=== PATIENT | male | born 1955 | race Caucasian/White ===

== ENCOUNTER → 2019-08-08 10:10 | Outpatient (BNVA) | payer MEDICARE, SELFPAY | PROVIDERS: PCP Family Medicine; Visit Provider Urology | DX: C67.8 Malignant neoplasm of overlapping sites of bladder (principal); R82.89 Other abnormal findings on cytological and histological examination of urine | CPT/HCPCS: 81001 ==

== ENCOUNTER → 2020-02-13 14:20 | Outpatient (BNVA) | payer MEDICARE, SELFPAY | PROVIDERS: PCP Family Medicine; Visit Provider Urology | DX: R82.89 Other abnormal findings on cytological and histological examination of urine (principal) | CPT/HCPCS: 81001; 88112 ==

== ENCOUNTER → 2020-08-21 14:16 | Outpatient (BNVA) | payer MEDICARE, SELFPAY | PROVIDERS: PCP Family Medicine; Visit Provider Urology | DX: C67.8 Malignant neoplasm of overlapping sites of bladder (principal) | CPT/HCPCS: 81003 ==

== ENCOUNTER → 2021-02-25 14:28 | Outpatient (BNVA) | payer MEDICARE, SELFPAY | PROVIDERS: PCP Family Medicine; Visit Provider Urology | DX: C67.8 Malignant neoplasm of overlapping sites of bladder (principal) | CPT/HCPCS: 81003 ==

== ENCOUNTER → 2021-09-08 13:17 | Outpatient (BNVA) | payer MEDICARE, SELFPAY | PROVIDERS: PCP Family Medicine; Visit Provider Urology | DX: C67.8 Malignant neoplasm of overlapping sites of bladder (principal); D49.59 Neoplasm of unspecified behavior of other genitourinary organ | CPT/HCPCS: 81003 ==

== ENCOUNTER 2021-09-10 15:31 | Observation (INO) | payer MEDICARE, SELFPAY ==
[2021-09-09 16:09] VITALS: BMI 35.2
[2021-09-10] VITALS (28 sets, daily range): BP systolic 99–165; BP diastolic 57–90; PULSE 55–77; RESP 16–21; TEMP 36.7–37.4; O2SAT 92–99
--- NOTE | 2021-09-10 | SCC_ITS ---
Procedure done: 1. Cystoscopy, transurethral section of bladder tumor medium 2. Left retrograde ureteropyelogram 3. Left ureteroscopy with biopsy 4. Incision and drainage/packing perineal abscess 27.4 seconds of fluoroscopic guidance, for a cumulative dose of 27.4 mGy, was provided to Dr. Zepeda by the radiology department. C-arm images of the abdomen were saved for the patient's permanent record. [facility]
--- NOTE | 2021-09-10 07:27 | SC_ITS ---
WS: [id number] INTRAOPERATIVE TECHNIQUE: 3 Spot fluoroscopic images for intraoperative purposes. FLUOROSCOPY TIME: 27.4 seconds CLINICAL INFORMATION: Ureteral tumor COMPARISON: None. FINDINGS: LEFT ureteroscopy with filling defect in the distal LEFT ureter SC/C-arm [place] for Urology IMPRESSION: Images obtained for intraoperative purposes.
--- NOTE | 2021-09-10 07:45 | ECG_ITS ---
[facility] Test Date: 2021-09-10 Pat Name: Kip Henry Department: Room: Gender: Male Applications Architect: : [id number] Requested By: Ceci Barbour Order Number: [id number] Ciarra MD: Fede Hernandez M.D. Measurements Intervals Villas Rate: 64 P: 27 NE: 142 QRS: 35 QRSD: 89 T: 26 QT: 392 QTc: 406 Interpretive Statements SINUS RHYTHM WITH FREQUENT VENTRICULAR PREMATURE COMPLEXES ABNORMAL RHYTHM ECG Compared to ECG 03/14/2018 19:49:38 No significant changes Electronically Signed On 09-10-2021 22:29:18 CDT by Fede Hernandez M.D. [id number]
--- NOTE | 2021-09-10 07:47 | P.ANESASSM_ITS ---
Pre-Anesthetic Assessment Height/Weight: Height 1.78 m Weight 111.13 kg Preop Diagnosis: Bladder cancer recurrence, perineal infection Operation Date: 09/10/21 08:45 Proposed Procedures p Cystoscopy 04970 mod 26/79987/65614/d49.59/01581(Not Applicable) - Tesfaye Zepeda MD s Transurethral Resection Bladder Tumor(Not Applicable) - Tesfaye Zepeda MD s Ureteroscopy(Left) - Tesfaye Zepeda MD s Retrograde Pyelogram(Left) - Tesfaye Zepeda MD s Incision And Drainage Perineal Abscess(Not Applicable) - Tesfaye Zepeda MD Familial anesthetic complications: None Was Beta Demian taken within 24 hours: Yes Was Clonidine taken within 24 hours: N/A Last intake: 09/09/21 Social Tobacco and No alcohol Exam alert, oriented x 3, clear to auscultation bilaterally and regular rate & rhythm Airway Submandibular: within normal limits Cervical ROM: within normal limits Mallampati: Class III Dentition: false Pulmonary Asthma CV/HEM Hypertension METS > 4 Ureteral tumor Hepatic None reported GI None reported Metabolic Diabetes Mellitus Musc/skel None reported Neuropsych Tremor of unknown cause per patient. Better with anxiety medications, worse with stress. No associated memory loss. Denies Parkinson Anesthetic Plan ASA status: 3 (66 year old male smoker with hx of asthma, HTN, DM, and ureteral tumor ) Anesthesia: Anesthesia Evaluation and General Other: We discussed risk and benefits of general anesthesia including PONV, sore throat (sometimes severe), corneal abrasion, positioning and peripheral nerve injuries, life threatening allergic reaction, post operative ICU admission requiring prolonged intubation, stroke, heart attack, , and rare incidences of recall. Patient consents to proceed with general anesthesia. Risk of > 500 ml blood loss (7ml/kg in children): No Medications/Allergies Home Medications Medication Instructions Recorded Confirmed Last Taken Type alprazolam 0.5 mg tablet 0.5 mg PO DAILY PRN 08/08/19 09/09/21 Unknown History atenolol 25 mg tablet 25 mg PO DAILY 08/08/19 09/09/21 Unknown History atorvastatin 40 mg tablet 40 mg PO DAILY 08/08/19 09/09/21 Unknown History metformin 500 mg tablet 500 mg PO DAILY 08/08/19 09/09/21 Unknown History omeprazole 20 mg capsule,delayed 20 mg PO DAILY 08/08/19 09/09/21 Unknown History release tamsulosin 0.4 mg capsule 0.4 mg PO BID cap 08/08/19 09/09/21 Unknown History albuterol sulfate 90 mcg/actuation 2 puff INHALATION Q6H PRN 08/21/20 09/09/21 Unknown History aerosol inhaler (ProAir HFA) mirtazapine 7.5 mg tablet 7.5 mg PO DAILY 08/21/20 09/09/21 Unknown History sertraline 100 mg tablet 100 mg PO BID tab 08/21/20 09/09/21 Unknown History ciprofloxacin HCl 500 mg tablet 500 mg PO BID 09/08/21 09/09/21 Unknown History (Cipro) sulfamethoxazole 800 1 tab PO BID #20 tab 09/08/21 09/09/21 Unknown Rx mg-trimethoprim 160 mg tablet Allergies Allergy/AdvReac Type Severity Reaction Status Date / Time No Known Allergies Allergy Verified 09/09/21 16:04 [facility] Anesthesia Medical History ED (erectile dysfunction) Malignant neoplasm of overlapping sites of bladder Testicular dysfunction Type 2 diabetes mellitus without complications Urine cytology abnormal Surgical History H/O transurethral destruction of bladder lesion Family History Family/Other Cancer CAD (coronary artery disease) Mother , at age 63 Brain tumor Father , at age 83 No problems noted. Social History Smoking and tobacco status: current every day smoker Alcohol intake: current Alcohol intake frequency: few times a month Adopted: No Caregiver/support person: No Lives independently: No Household members: spouse Marital status: Current occupational status: disabled History of recent travel: No Current gender identity: Male Data Anesthesia Cardiac Studies: No Data to Display
[2021-09-10 08:03] LABS: Glucose Point of Care 168 mg/dL (70-110)
[2021-09-10] MEDS: sodium chloride 0.9% 1,000 ML 30 ML IV (08:06)
[2021-09-10] MEDS: fentaNYL 50 mcg/mL INJ 2mL IVP ×2 (08:15→10:20)
--- NOTE | 2021-09-10 08:37 | P.HPUD_ITS ---
Surgery/Procedure H&P Update DATE OF PROCEDURE: September 10, 2021 DATE H&P PERFORMED: 09/08/21 H&P UPDATE INFORMATION: I have reviewed H&P completed within last 30 days, I have examined patient prior to procedure, Changes to prior documentation as noted here and H&P is in [facility] EMR on date indicated PREOP DIAGNOSIS: Bladder cancer recurrence, perineal infection PRIMARY INDICATION FOR PROCEDURE: He has noted no improvement in the perineal tenderness and induration over the last couple days. No high spiking fever. Plan will be to perform the TURBT, ureteral tumor evaluation, and then assess for possible I&D of the perineum. All of this was reviewed in detail with the patient his and his son. They expressed good understanding and agreed to proceed as previously planned PLANNED PROCEDURE: Operation Date: 09/10/21 08:45 Proposed Procedures p Cystoscopy 97399 mod 26/99550/36270/d49.59/96326(Not Applicable) - Tesfaye garcia MD s Transurethral Resection Bladder Tumor(Not Applicable) - Tesfaye Zepeda MD s Ureteroscopy(Left) - Tesfaye Zepeda MD s Retrograde Pyelogram(Left) - Tesfaye Zepeda MD s Incision And Drainage Perineal Abscess(Not Applicable) - Tesfaye Zepeda MD
[2021-09-10] MEDS: levofloxacin-dextrose 5 % 500 MG/100 ML PREMIX 100 MG IV (08:46)
--- NOTE | 2021-09-10 10:06 | P.OP_ITS ---
Operative Report Date of procedure: September 10, 2021 Pre-op diagnosis: Preop Diagnosis Bladder cancer recurrence, perineal infection Post-op diagnosis: 1. Recurrent bladder cancer near left ureteral orifice 2. Obstructing multiple level LEFT ureteral TCCA 3. Perineal abscess Procedure done: 1. Cystoscopy, transurethral section of bladder tumor medium 2. Left retrograde ureteropyelogram 3. Left ureteroscopy with biopsy 4. Incision and drainage/packing perineal abscess Pathology: 1. Bladder tumor resected 2. Ureteral tumor biopsies 3. Perineal abscess culture Surgeon: Duane Estimated blood loss: Less than 10 cc Urine output: Not measured Complications: None Findings: 1. Medium sized bladder tumor cephalad to the left ureteral orifice completely resected with deep sampling 2. Retrograde showed an obstruction of the left distal ureter with what appeared to be solid masses. This was confirmed on ureteroscopy showing multiple levels of large obstructing ureteral tumors with biopsies performed of benefits representative areas. 3. Perineal abscess drained with incision drainage and irrigation and packed. Brief History: Kip is a very pleasant 66-year-old white male with a history of TCC of the bladder having gone multiple years without recurrence. On routine surveillance cystoscopy this week he was found to have a recurrence measuring approximately 2.5 to 3 cm just cephalad to the left ureteral orifice. There also appeared to be a papillary tumor just inside the left ureteral orifice. He denied any symptoms of concern flank pain gross hematuria etc. He also complained of 2 to 3 days of increasing perineal discomfort induration and tenderness. Physical exam was consistent with a perineal infection possible abscess. Admitted for cystoscopy, transurethral section of bladder tumor, retrograde ureteropyelogram ureteroscopy possible biopsy and drainage of perineal abscess if appropriate Procedure: After routine preoperative evaluation examination and obtaining of informed consent he was taken to the operating suite on 09/10/2021 where general anesthesia was administered without difficulty after appropriate timeout was performed, SCDs confirmed to be functioning, preoperative antibiotics administered, beta-viki protocol confirmed. Prepped and draped in the usual sterile fashion in dorsolithotomy position paying careful attention to avoiding pressure points. 21 [place] cystoscope with 30 degree lens was introduced into the urethra meatus and advanced into the bladder under videoscopy. The clinic findings were confirmed. No other areas of suspicious mucosa were identified. The urethra was then calibrated with well-lubricated Leobardo sounds and easily accommodated 32 [place]. 2% lidocaine jelly was instilled into the urethra then a 25 [place] continuous- flow resectoscope sheath with visual obturator in place was advanced into the bladder without difficulty. The gyrus bipolar system with super loop was utilized for resection. The tumor near the left ureteral orifice and surrounding area of normal mucosa was resected and sent for pathologic evaluation. The base of the tumor was fulgurated with the button probe. Muscle could be seen at the base Attention was then directed to the left ureteral orifice where an 8 [place] cone-tip catheter was intubated into the left ureteral orifice for a LEFT RETROGRADE ureterogram. Contrast showed very short segment of what looked like normal caliber ureter with a small filling defect. Proximal to that point though was a couple of goblet shaped defects consistent with tumor in the ureter and contrast could not be advanced beyond the more proximal 1. A flexible tip guidewire was then attempted to be passed up the left ureter but could not. It curled in the area of the more proximal lesion. The wire was removed. A 7.5 [place] offset semirigid ureteroscope was then advanced up the ureter and the areas seen on retrograde pyelogram were confirmed to be consistent with TCCA masses. They were far too large to try and resect. Attempts at passing a wire under direct visualization again were unsuccessful. Contrast was reinjected through the scope and again could not be advanced proximal to the more proximally visualized lesion. Reusable small ureteroscopic biopsy forceps were used to sample 3 areas with reasonable tissue for the size of the biopsy forceps. Photo documentation was obtained as well. No stent. Cystoscope was then passed back into the bladder the area of resection was confirmed to be hemostatic the bladder was drained with a 20 [place] three-way Shafer catheter with plug in the irrigation port. Attention was then directed to the perineal area where the palpable induration was easily definable. A 14-gauge needle was advanced into the area but no distinct purulence could be obtained. An incision was made on the more anterior aspect of the induration taken down through skin subcutaneous tissue and into an abscess cavity which was then irrigated. The incision was opened further for allowing better packing and a hemostat was utilized to confirm adequate opening for drainage. After adequate irrigation packing with half-inch gauze was performed. Hemostasis was good. Cultures were obtained prior to packing. Fluffed dressings and maternity briefs applied He tolerated procedure well without complications and was awakened in the operating room and returned to the recovery room in stable condition. PLANS: 1. Check CMP CBC 2. Plan for CT scan abdomen and pelvis tomorrow with chest x-ray 3. Further planning based on results of the CT scan.
--- NOTE | 2021-09-10 10:10 | PC.NURSE ---
SPOKE WITH LAB ABOUT THERE BEING 2 SETS OF CULTURES FOR SAME WOUND. BOTH ORDERS PLACED.
[2021-09-10] MEDS: sodium chloride 0.9% 1,000 ML 100 ML IV (10:39)
--- NOTE | 2021-09-10 10:41 | SUR.PHASEI ---
0959 PT TO PACU AWAKE ALERT ON 8LMASK PT WITH GOOD RESP EFFORT, SOME AUDIBLE RHONCHI, NOTED PT ENCOURAGED TO COUGH AND DEEP BREATH, RHONCHI NOW GONE, MONITOR SR NO ECTOPY, IV TO RT INNER WRIST #18 PATENT NS 100ML UP AT KVO RATE PER GRAVITY, PT HAS 3 WAY CHANG WITH PLUG CLEAR YELLOW URINE NOTED TO TUBING, ABDOMEN IS SOFT, PT HAS HELADIO STRAP TO SECURE CHANG CATHETER. HOB AT 30 DEGREES PT HAS A INCISION TO DUSTIN SCROTAL AREA WITH PACKING AND FLUFFS AND STRETCH BRIEFS WITH SOME VERY LT PINK DRAINAGE, CHUX TO BED. 1043 PT STATES PAIN IS BETTER, PT NOW ON 2LNC PT USES 2LNC AT HOME, PT VSS CHANG PATENT OF CLEAR LT YELLOW URINE.
--- NOTE | 2021-09-10 10:57 | SUR.PHASEI ---
1050 PT TO OPS 10 FOR HOLDING FOR ROOM PT CARE ASSUMED BY JELLY ROB.
[2021-09-10] MEDS: HYDROcodone-acetaminophen 5-325 mg Tablet 1 TAB PO ×2 (13:35→20:49)
--- NOTE | 2021-09-10 14:50 | SUR.PHASEI ---
guaze to perineal area changed with new guaze placed.
--- NOTE | 2021-09-10 15:22 | SUR.PHASEI ---
patient taken to 259-2. awake and alert x4. nurse present in room on arrival. patient has cabrera in place and draining, scds in place, dressing to scrotal area in place. patient on room air. he transferred self to floor bed and tolerated well.
[2021-09-10 16:05] LABS: Basophils # 0.1 10^3/uL (0.0-0.1); Basophils % 0.8 %; Eosinophils # 0.1 10^3/uL (0.0-0.8); Eosinophils % 1.3 %; Hematocrit 38.7 % (42.0-52.0); Lymphocytes # 2.1 10^3/uL (0.8-4.8); Lymphocytes % 21.7 %; Mean Corpuscular Hemoglobin 28.6 pg (28.0-34.0); Mean Corpuscular Volume 92.4 fl (80-94); Mean Platelet Volume 10.8 fL (7.4-10.4); Monocytes # 0.7 10^3/uL (0.2-0.9); Monocytes % 7.6 %; Neutrophils # 6.45 10^3/uL (1.8-7.7); Neutrophils % 68.3 %; Nucleated Red Blood Cells % 0 %; Platelet Count 253 10^3/cmm (130-400); Red Blood Count 4.19 10^6/uL (4.1-5.3); Red Cell Distribution Width 13.8 % (12.1-15.1); White Blood Count 9.5 10^3/uL (4.0-10.0)
[2021-09-10] MEDS: sodium chloride 0.9% 1,000 ML 50 ML IV (16:06)
[2021-09-10] MEDS: pantoprazole DR 40 mg Tablet PO (16:36)
[2021-09-10] MEDS: atorvastatin 40 mg Tablet PO (16:36)
[2021-09-10 16:37] LABS: Alanine Aminotransferase 16 U/L (0-41); Albumin Level 3.6 g/dL (3.5-5.2); Alkaline Phosphatase 108 IU/L (40-130); Anion Gap 18.4 (5-19); Aspartate Amino Transferase 17 U/L (0-40); Blood Urea Nitrogen 17 mg/dL (8-23); Calcium 8.2 mg/dL (8.5-10.5); Carbon Dioxide 19 mmol/L (22-29); Chloride 102 mmol/L (98-107); Globulin 3.3 g/dL (1.3-4.6); Glucose 143 mg/dL (65-115); Osmolality Calculated 284 mOsm/kg (285-295); Potassium 4.4 mmol/L (3.5-5.1); Sodium 135 mmol/L (136-145); Total Bilirubin 0.5 mg/dL (0.15-1.2); Total Protein 6.9 g/dL (6.6-8.7)
[2021-09-10 17:26] LABS: Glucose Point of Care 125 mg/dL (70-110)
--- NOTE | 2021-09-10 17:39 | ANE.PACU2 ---
Inpatient post-anesthesia follow up: Airway intact: Yes Vital signs: Temperature 98.6 F Pulse Rate 60 Respiratory Rate 18 Blood Pressure 115/65 Pulse Oximetry 95 Oxygen Delivery Me thod Room Air Oxygen Flow Rate 2 Fraction of Inspir ed Oxygen Hydration adequate: Yes Nausea and vomiting: No Pain level: 5 Mental status: Baseline
[2021-09-10] MEDS: docusate sodium 100 mg Capsule PO (18:24)
[2021-09-10] MEDS: sertraline 100 mg Tablet PO (18:24)
[2021-09-10] MEDS: ciprofloxacin 500 mg Tablet PO (18:24)
[2021-09-10] MEDS: sulfamethoxazole-trimeth DS 160-800 mg Tablet 1 TAB PO (18:24)
[2021-09-10] MEDS: tamsulosin 0.4 mg Capsule PO (18:24)
[2021-09-11 00:51] VITALS: BP 112/64; PULSE 67; RESP 18; TEMP 36.7; O2SAT 95
[2021-09-11] MEDS: HYDROcodone-acetaminophen 5-325 mg Tablet 1 TAB PO (02:47)
[2021-09-11 04:00] VITALS: BP 117/75; PULSE 65; RESP 17; TEMP 36.6; O2SAT 99
[2021-09-11 07:21] VITALS: BP 124/73; PULSE 57; RESP 20; TEMP 36.9; O2SAT 95
--- NOTE | 2021-09-11 08:00 | CT_ITS ---
WS: [id number] CT ABDOMEN PELVIS TECHNIQUE: Noncontrast CT of the abdomen and contrast-enhanced CT of the abdomen and pelvis with pineda nal and sagittal reformatted images. CLINICAL INFORMATION: Bladder cancer, left ureteral tumor with obstruction COMPARISON: CT 2019. Intraoperative images 2021 DLP: 4664.[address] scans at [facility] use at least one of these dose optimization techniques: automated e xposure control; mA and/or kV adjustment per patient size (includes targeted exams where dose is matc hed to clinical indication); or iterative reconstruction. FINDINGS: Expansile enhancing filling defect in the distal LEFT ureter extending to the UVJ. This corresponds t o the findings in the recent ureteroscopy. This measures approximately 1.3 x 1.0 x 2.7 cm AP by trans verse by craniocaudal. This results in moderate LEFT hydronephrosis with LEFT ureterectasis. Findings compatible with neoplasm. Shafer catheter with diffuse bladder wall thickening. Delayed LEFT nephrogram with delayed emptying. No significant Left ureteral emptying on this examinat ion. Normal RIGHT renal excretion. Mild dilatation and enhancement in the distal RIGHT ureter althoug h with normal emptying. Lung bases are well aerated. Evidence of LEFT thoracotomy or chronic LEFT rib fractures with callus f ormation. Hepatomegaly with diffuse fatty infiltration liver. Normal portal vein and splenic vein. Normal gallb ladder. Splenomegaly measuring 17.5 cm [id number]. Normal RIGHT adrenal gland. Small LEFT adrenal a denoma measuring 12 mm. Normal pancreatic parenchymal enhancement. Normal caliber abdominal aorta. Ce liac and SMA are patent. Normal allen hepatis. Normal GE junction. No periaortic or pelvic lymphadenopathy. No inguinal lymphadenopathy. Fat-contain ing LEFT inguinal hernia. Sigmoid diverticulosis. No evidence of acute diverticulitis. No evidence of high-grade small or large bowel obstruction. Small LEFT renal cyst. Slight retrolisthesis L3 on L4 and L4 on L5. Disc space narrowing worse L5-S1 with endplate sclerosis . Central disc protrusion L4-L5 with mild central canal stenosis. CT/CT abdomen pelvis wo/w [id number] IMPRESSION: 1. Enhancing expansile obstructing neoplasm in the distal LEFT ureter extendin g to the UVJ compatible with neoplasm likely TCC measuring 1.3 x 1.0 x 2.7 cm A P by transverse by craniocaudal. 2. Moderate LEFT hydronephrosis with LEFT ureterectasis. No excretion on the d elayed imaging. 3. Normal RIGHT renal parenchymal enhancement and excretion. Mild dilatation o f the distal RIGHT ureter with enhancement although normal emptying. 4. No abdominal or pelvic lymphadenopathy. 5. Shafer catheter with diffuse bladder wall thickening. 6. Hepatomegaly with diffuse fatty infiltration. Splenomegaly.
[2021-09-11 08:18] VITALS: PULSE 61; RESP 20; O2SAT 98
[2021-09-11] MEDS: albuterol 8 gm MDI 2 PUFF INHALATION (08:18)
[2021-09-11] MEDS: iohexol 350 mg/mL 100 mL Btl IV (08:44)
[2021-09-11] MEDS: iohexol 300 mg/mL 50 mL Btl PO (08:44)
[2021-09-11] MEDS: tamsulosin 0.4 mg Capsule PO (10:23)
[2021-09-11] MEDS: metformin 500 mg Tablet PO (10:23)
[2021-09-11] MEDS: mirtazapine 15 mg Tablet 7.5 MG PO (10:24)
[2021-09-11] MEDS: docusate sodium 100 mg Capsule PO (10:25)
[2021-09-11] MEDS: sertraline 100 mg Tablet PO (10:25)
[2021-09-11] MEDS: ciprofloxacin 500 mg Tablet PO (10:25)
[2021-09-11] MEDS: atenolol 50 mg Tablet 25 MG PO (10:26)
[2021-09-11] MEDS: pantoprazole DR 40 mg Tablet PO (10:26)
[2021-09-11] MEDS: atorvastatin 40 mg Tablet PO (10:27)
[2021-09-11] MEDS: sulfamethoxazole-trimeth DS 160-800 mg Tablet 1 TAB PO (10:27)
--- NOTE | 2021-09-11 10:32 | PC.CHAP ---
Pastoral Care Encounter/Spiritual Assessment Type of Contact [] Declined qa analyst visit [] Patient/Family/Request visit [] Outpatient visit [] Follow-up visit [] Physician referral [] Code/Alert [] Routine visit [] Staff referral [] Actively dying [] Patient sleeping [] Family support [] [] Out of room [] Palliative care [] [] Receiving care in room [] Pre-surgical visit [] Trauma [] Long length of stay [] ICU visit [x] Other: Isoation Relational/Emotional Strength [] Patient feels connected with others/family/visitors/staff [] Distress [] Loneliness/isolation [] Abandonment Spirituality of Patient [] Person of Ailyn [] Attends Yarsanism of their Ailyn [] Believes in Prayer [] Reads Bible or Sikhism materials [] There are Spiritual issues to be addressed Shared Services Representative Interventions [] Prayer [] Active listening [] Non-anxious presence [] Spiritual/emotional support [] Crisis/trauma care [] Spiritual counseling [] Bereavement support [] Provided bereavement packet [] Provided Bible/devotional materials [] Provided toy/stuffed animal, coloring book to patient or family member [] Provided Communion [] Anointing/[place] [] Salvation [] Completed spiritual assessment [] Other: Impact on Illness or Injury [] Angry [] Fearful [] Anxious [] Often cries [] Exhaustion [] Unable to work [] Unable to attend restorationist [] Unable to walk/stand [] Unable to read [] Unable to drive [] Unable to eat/drink [] Unable to sleep [] Unable to be with family [] Patient intubated [] Other: Summary Isoation Time spent with patient 5 mins
[2021-09-11] MEDS: sodium chloride 0.9% 1,000 ML 50 ML IV (10:35)
[2021-09-11 11:05] VITALS: BP 125/69; PULSE 70; RESP 18; TEMP 37.2; O2SAT 93
[2021-09-11 11:52] LABS: Glucose Point of Care 167 mg/dL (70-110)
[2021-09-11 14:39] VITALS: BP 125/69; PULSE 70; RESP 18; TEMP 37.2; O2SAT 93
--- NOTE | 2021-09-11 14:39 | PC.NURSE ---
Discussed discharge paperwork, follow appointments along with medications. Patient verbalized understanding.
--- NOTE | 2021-09-11 18:34 | P.DS_ITS ---
Discharge Providers Date of Admission: 09/10/21 15:31 Date of Discharge: September 11, 2021 Attending Provider at Admission: Tesfaye Levin MD Attending Provider at Discharge: Tesfaye Levin MD Primary Care Provider: Jh Morejon Diagnoses at Discharge Discharge Diagnosis (1) Ureteral cancer: Status: Acute (2) Perineal abscess: Status: Acute (3) Malignant neoplasm of overlapping sites of bladder: Status: Acute Reason for Visit Reason for Visit: bladder cancer Hospital Course Hospital Course He was admitted on 09/11/2021 with the above diagnosis. Intraoperatively he was found to have a medium size TCCA appearing lesion just cephalad to the left ureteral orifice. There was a very small papillary lesion emanating from the left ureteral orifice. A left retrograde ureteropyelogram though demonstrated an obstructed left distal ureter with filling defects consistent with large nodular TCCA. Ureteroscopy confirmed this and biopsies were performed. The obstructing lesions could not be bridged with a guidewire. He had been noted to have an indurated tense perineal area felt to be infection. Was not fluctuant at time of first evaluation. Failed to improve with ant ibiotics. Intraoperatively he underwent an incision and drainage of perineal abscess with wound packing. On postoperative day #[address] scan was performed and demonstrated no evidence of lymphadenopathy, liver disease or extra ureteral metastasis. The distal ureter was the only area in the left collecting system that appeared to be involved.. His dressing was removed from the perineal wound on postop day #1 and repacked with sterile gauze. Was discharged on the afternoon of postoperative day #1 in stable condition. After discharge a prescription for hydrocodone/APAP was sent to [facility] a t his request. Shafer catheter was left in place at discharge to allow for further healing and plans were made for voiding trial as well as a wound dressing change on postoperative day #2 in my clinic. Physical Exam Narrative: Alert and oriented no acute distress No labored respiration. Does have some wheezes. Abdomen soft nontender no palpable masses exam was normal. There was no reaccumulation of abscess in the perineum. Dressing was changed without difficulty. He had some old blood. Repacked with 1 inch Kerlex No other changes noted from previous physical exam. Urinary Catheter Management: 3-way Urethral CBI: Cath Placed During This Visit: yes Reason for Continuing Indwelling Catheter: Required Immobilization for Trauma or Surgery or Anesthesia Urinary Catheter Date of Insertion: 09/10/21 Urinary Catheter Time of Insertion: 09:50 Discharge Data Studies Completed and Pending Completed Studies During Hospitalization Category Date Time Status CT abdomen pelvis wo/w [id number] Routine Cat Scan 09/11/21 08:00 Completed Pending at discharge Category Date Time Status Abscess Culture Routine Lab 09/10/21 09:45 Results Abscess Culture and Gram Stain Routine Lab 09/10/21 09:45 Results Anaerobic Culture Routine Lab 09/10/21 09:45 Results Pathology: Surgical [PTH] Routine Pth 09/10/21 10:10 Received Radiology Impressions C-Arm Fluoroscopy 09/10/21 07:27 IMPRESSION: Images obtained for intraoperative purposes. Abdomen/Pelvis CT 09/11/21 08:00 IMPRESSION: 1. Enhancing expansile obstructing neoplasm in the distal LEFT ureter extending to the UVJ compatible with neoplasm likely TCC measuring 1.3 x 1.0 x 2.7 cm AP by transverse by craniocaudal. 2. Moderate LEFT hydronephrosis with LEFT ureterectasis. No excretion on the delayed imaging. 3. Normal RIGHT renal parenchymal enhancement and excretion. Mild dilatation of the distal RIGHT ureter with enhancement although normal emptying. 4. No abdominal or pelvic lymphadenopathy. 5. Shafer catheter with diffuse bladder wall thickening. 6. Hepatomegaly with diffuse fatty infiltration. Splenomegaly. Laboratory Results WBC 9.5 10^3/uL (4.0-10.0) 09/10/21 15:55 RBC 4.19 10^6/uL (4.1-5.3) 09/10/21 15:55 Hgb 12.0 g/dL (11.7-16.6) 09/10/21 15:55 Hct 38.7 % (42.0-52.0) L 09/10/21 15:55 MCV 92.4 fl (80-94) 09/10/21 15:55 MCH 28.6 pg (28.0-34.0) 09/10/21 15:55 MCHC 31.0 g/dL (30.0-36.0) 09/10/21 15:55 RDW 13.8 % (12.1-15.1) 09/10/21 15:55 Plt Count 253 10^3/cmm (130-400) 09/10/21 15:55 MPV 10.8 fL (7.4-10.4) H 09/10/21 15:55 Neut % (Auto) 68.3 % 09/10/21 15:55 Lymph % (Auto) 21.7 % 09/10/21 15:55 [place] % (Auto) 7.6 % 09/10/21 15:55 Eos % (Auto) 1.3 % 09/10/21 15:55 Baso % (Auto) 0.8 % 09/10/21 15:55 Neut # (Auto) 6.45 10^3/uL (1.8-7.7) 09/10/21 15:55 Lymph # (Auto) 2.1 10^3/uL (0.8-4.8) 09/10/21 15:55 [place] # (Auto) 0.7 10^3/uL (0.2-0.9) 09/10/21 15:55 Eos # (Auto) 0.1 10^3/uL (0.0-0.8) 09/10/21 15:55 Baso # (Auto) 0.1 10^3/uL (0.0-0.1) 09/10/21 15:55 Nucleated RBC % (auto) 0 % 09/10/21 15:55 Nucleated RBCs # 0.0 /100WBC 09/10/21 15:55 Sodium 135 mmol/L (136-145) L 09/10/21 15:55 Potassium 4.4 mmol/L (3.5-5.1) 09/10/21 15:55 Chloride 102 mmol/L (98-107) 09/10/21 15:55 Carbon Dioxide 19 mmol/L (22-29) L 09/10/21 15:55 Anion Gap 18.4 (5-19) 09/10/21 15:55 BUN 17 mg/dL (8-23) 09/10/21 15:55 Creatinine 1.2 mg/dL (0.7-1.2) 09/10/21 15:55 GFR Calculation 61.0 mL/min (90-130) L 09/10/21 15:55 Glucose 143 mg/dL (65-115) H 09/10/21 15:55 POC Glucose 167 mg/dL (70-110) H 09/11/21 11:04 Calculated Osmolality 284 mOsm/kg (285-295) L 09/10/21 15:55 Calcium 8.2 mg/dL (8.5-10.5) L 09/10/21 15:55 Total Bilirubin 0.5 mg/dL (0.15-1.2) 09/10/21 15:55 AST 17 U/L (0-40) 09/10/21 15:55 ALT 16 U/L (0-41) 09/10/21 15:55 Alkaline Phosphatase 108 IU/L (40-130) 09/10/21 15:55 Total Protein 6.9 g/dL (6.6-8.7) 09/10/21 15:55 Albumin 3.6 g/dL (3.5-5.2) 09/10/21 15:55 Globulin 3.3 g/dL (1.3-4.6) 09/10/21 15:55 Vitals Last Vital Signs Temp 98.9 F 09/11/21 14:39 Pulse 70 09/11/21 14:39 Resp 18 09/11/21 14:39 BP 125/69 09/11/21 14:39 Pulse Ox 93 09/11/21 14:39 Discharge Plan Discharge Patient Disposition: Home Condition: Stable Prescriptions: Continued tamsulosin 0.4 mg capsule 0.4 mg PO BID 0RF atorvastatin 40 mg tablet 40 mg PO DAILY 0RF omeprazole 20 mg capsule,delayed release(DR/EC) 20 mg PO DAILY 0RF alprazolam 0.5 mg tablet 0.5 mg PO DAILY PRN (Reason: Anxiety) 0RF metformin 500 mg tablet 500 mg PO DAILY 0RF atenolol 25 mg tablet 25 mg PO DAILY 0RF sertraline 100 mg tablet 100 mg PO BID 0RF ciprofloxacin HCl [Cipro] 500 mg tablet 500 mg PO BID 0RF sulfamethoxazole-trimethoprim 800-160 mg tablet 1 tab PO BID Qty: 20 1RF mirtazapine 7.5 mg tablet 7.5 mg PO DAILY 0RF albuterol sulfate [ProAir HFA] 90 mcg/actuation HFA aerosol inhaler 2 puff inhalation Q6H PRN (Reason: shortness of breath) 0RF No Action hydrocodone-acetaminophen 5-325 mg tablet 1 tab PO Q6H PRN (Reason: Renal colic) 4 Days Qty: 16 0RF Discharge Orders: Discharge Order (Routine); Ordered 09/11/21 Ordered By: Tesfaye Levin Referrals: Tesfaye Levin MD [Physician] - 09/12/21 (Wound dressing change, voiding trial DR LEVIN WILL CALL WITH APPOINTMENT TIME ) Discharge Diet: Usual diet Discharge Activity: Limit activity as instructed Patient Instructions: Bladder Cancer (DC), Transurethral Resection of Bladder Tumors (DC), Opioid Safety Activity Restrictions/Additional Instructions: No strenuous physical activity. That means no lifting >10 pounds for 3 weeks. Will see you tomorrow for dressing change in the clinic and go ahead and do a voiding trial as well Discharge Attestations Time Spent in Discharge Care*: greater than 30 min Quality Metrics Clinical Quality Measures [ No reported AMI, CVA or VTE this stay] Coding Level of Care Code Acute Chg FW DC note Diagnoses Ureteral cancer C66.9 Perineal abscess L02.215 Malignant neoplasm of overlapping sites of bladder C67.8
== END 2021-09-11 14:05 | disposition home or self-care (01) ==
PROVIDERS: Admitting Provider Urology; PCP Family Medicine; Visit Provider Urology
PROC: 0TJB8ZZ Inspection of Bladder, Via Natural or Artificial Opening Endoscopic (ICD-10-PCS; CPT 52000; principal; 2021-09-10 08:35)
PROC: 0TBB8ZZ Excision of Bladder, Via Natural or Artificial Opening Endoscopic (ICD-10-PCS; CPT 46050; 2021-09-10 08:35)
PROC: 0TJ98ZZ Inspection of Ureter, Via Natural or Artificial Opening Endoscopic (ICD-10-PCS; CPT 52351; 2021-09-10 08:35)
PROC: (CPT 74420; 2021-09-10 08:35)
PROC: (CPT 46050; 2021-09-10 08:35)
DX: C67.8 Malignant neoplasm of overlapping sites of bladder (principal); L02.215 Cutaneous abscess of perineum; J45.909 Unspecified asthma, uncomplicated; I10 Essential (primary) hypertension; E11.9 Type 2 diabetes mellitus without complications; Z79.84 Long term (current) use of oral hypoglycemic drugs; F17.210 Nicotine dependence, cigarettes, uncomplicated
CPT/HCPCS: 46050; 52235; 52354; 36416; 74178; 76000; 80053; 82962; 85025; 87070; 87075; 87205; 88305; 88307; 93005; 94640; G0378; J1956; J2704; J2710; J3010; J3490; J3535; J7030; Q9967

== ENCOUNTER → 2021-09-25 08:35 | Outpatient (BNVA) | payer MEDICARE, SELFPAY | PROVIDERS: PCP Family Medicine; Visit Provider Urology | DX: C66.9 Malignant neoplasm of unspecified ureter (principal); C67.8 Malignant neoplasm of overlapping sites of bladder; L02.215 Cutaneous abscess of perineum | CPT/HCPCS: 99213 ==

== ENCOUNTER 2022-10-01 15:00 | Outpatient (CLI) | payer MEDICARE, SELFPAY | END 2022-10-01 15:01 | disposition home or self-care (01) | LOC: SLEEP 10-05 08:51 | PROVIDERS: PCP Family Medicine; Visit Provider Family Medicine | DX: G47.33 Obstructive sleep apnea (adult) (pediatric) (principal) | CPT/HCPCS: G0399 ==

== ENCOUNTER 2023-02-21 19:09 | Emergency (ER) | payer MEDICARE, SELFPAY ==
[2023-02-21 19:12] VITALS: BP 153/97; PULSE 113; RESP 17; TEMP 37.6; O2SAT 96; BMI 31.5
--- NOTE | 2023-02-21 19:47 | XRR_ITS ---
PROCEDURE INFORMATION: Exam: XR Left Knee Exam date and time: 02/21/2023 7:56 PM Age: 68 years old Clinical indication: Patient HX: Left knee pain/swelling post bladder surg last week; PT states that he went in for a bladder resection and has been unable to walk or bear weight on left knee since; He had no injury prior. ; Additional info: Left knee pain post bladder surg last week; PT states that he went in for a bladder resection and has been unable to walk or bear weight on left knee since; He had no injury prior. TECHNIQUE: Imaging protocol: Radiologic exam of the left knee. Views: 3 views. COMPARISON: CR XR knee LT 3V* [id number] 01/02/2019 10:36 AM FINDINGS: Bones/joints: No radiographic evidence of acute fracture or dislocation. Alignment anatomic. Joint spaces preserved. No significant effusion. Soft tissues: Grossly unremarkable. XR/XR knee LT 3V* [id number] IMPRESSION: No acute radiographic findings.
--- NOTE | 2023-02-21 19:47 | USR_ITS ---
PROCEDURE INFORMATION: Exam: US Duplex Left Lower Extremity Veins, Limited Exam date and time: 02/21/2023 8:20 PM Age: 68 years old Clinical indication: Pain; Leg, lower; Left; Additional info: Lle pain and swelling TECHNIQUE: Imaging protocol: Real-time duplex ultrasound of the left extremity with 2-D wells scale, color Doppler flow and spectral waveform analysis including responses to compression and other maneuvers (when performed) with image documentation. Limited exam focused on the left lower extremity veins. COMPARISON: US renal BI* [id number] 05/31/2018 11:19 AM FINDINGS: Left deep veins: Unremarkable. The common femoral, femoral, proximal profunda femoral, popliteal, posterior tibial and peroneal veins are patent without thrombus. Normal compressibility, augmentation response and Doppler waveforms. Superficial veins: Unremarkable. Saphenofemoral junction is patent without thrombus. Soft tissues: 2.3 x 3.2 x 5.2 cm complex popliteal cyst. US/[place] [id number] IMPRESSION: 1. No sonographic evidence of deep vein thrombosis. 2. 2.3 x 3.2 x 5.2 cm complex popliteal cyst.
--- NOTE | 2023-02-21 19:52 | ED_ITS ---
HPI - Extremity Problem General: Chief complaint: Extremity Problem,Nontraumatic Stated complaint: Left Knee Pain Time Seen by Provider: 02/21/23 19:12 Source: patient History of Present Illness: 68-year-old male presenting with left knee pain. He was at an outside facility recently, for a cystoscopy and tumor removal. He has not had any problems prior. On returning home from the hospital, he noted that he had a painful swollen left knee, with inability to bear weight significantly on that side. No history of fever, although he is running a low-grade temp this evening. No shortness of breath or chest discomfort. No history of knee injections, etc. His leg is mildly swollen as well, but primarily swelling and pain are to the knee alone. Associated symptoms: Deny chest pain, fever(s) or rash Review of Systems Const: Denies: fever(s) or chills Eyes: Denies: change in vision ENMT: Denies: throat pain Card: Denies: chest pain Resp: Denies: dyspnea GI: Denies: abdominal pain or vomiting Skin/Breast: Denies: rash Neuro: Denies: numbness in extremities PFSH ED PFSH: Medical History ED (erectile dysfunction) Malignant neoplasm of overlapping sites of bladder Testicular dysfunction Type 2 diabetes mellitus without complications Surgical History H/O transurethral destruction of bladder lesion Family History Family/Other Cancer CAD (coronary artery disease) Mother , at age 63 Brain tumor Father , at age 83 No problems noted. Social History Smoking and tobacco status: current every day smoker Alcohol intake: current Alcohol intake frequency: few times a month Substance/Drug Use: unknown Adopted: No Caregiver/support person: No Lives independently: No Household members: spouse Marital status: Current occupational status: disabled Current gender identity: Male Physical Exam Const: COMMON NORMALS: no acute distress GENERAL APPEARANCE: cooperative; not ill appearing and not frail appearing HENMT: COMMON NORMALS: normocephalic, atraumatic and Normal external nose present HEAD & SCALP: normocephalic and atraumatic FACE & SINUS: normal facial exam and face symmetric NOSE: Normal external nose present Eye: COMMON NORMALS: Equal, round and reactive pupils present and EOMs intact bilaterally PUPIL: Yes Equal, round and reactive pupils present Neck/C-Spine: GENERAL: Yes trachea midline Chest: CHEST: Yes Symmetrical chest wall rise Resp: COMMON NORMALS: normal respiratory effort, No retractions, No use of accessory muscles and clear to auscultation bilaterally AUSCULTATION: clear to auscultation bilaterally Cardio: COMMON NORMALS: regular rate and regular rhythm RATE: regular rate RHYTHM: regular rhythm GI: COMMON NORMALS: Normal to inspection, nondistended, normoactive bowel sounds present Extremity: NARRATIVE EXTREMITY EXAM: Exam of the left lower extremity reveals a knee joint effusion. It is warm. Tenderness diffusely to touch. Minimal calf tenderness. No significant pitting edema. Neuro: TERESA COMA SCALE: document GCS findings Teresa coma scale eye opening: Spontaneous [place] coma scale verbal response: Orientated [place] coma scale motor response: Obey commands [place] coma scale total score: 15 SENSORY EXAM: Yes extremities (intact) Psych: COMMON NORMALS: speech normal SPEECH: Yes normal speech Skin: COMMON NORMALS: no rashes or lesions noted GENERAL SKIN EXAM: no rashes or lesions noted Procedures Joint Aspiration/Injection Joint Asp./Inject. 1: Time Out Performed: No Side of body: left Joint Aspirated: knee Ultrasound Guidance: Yes Skin Prep: Chlorhexidine Local Anesthetic: lidocaine 1% and bupivacaine 0.5% Amount of anesthesia used (mL): 6 Needle Size Used: 18G Fluid Obtained: turbid Total fluid obtained (mL): 56 Patient Tolerated Procedure: well and no complications Complications: none Course Vital Signs: Vital signs: Vital Signs Temperature 99.6 F 02/21/23 23:31 Pulse Rate 86 02/21/23 23:31 Respiratory Rate 16 02/21/23 23:31 Blood Pressure 144/75 02/21/23 23:31 Pulse Oximetry 96 02/21/23 23:31 Oxygen Delivery Me thod Room Air 02/21/23 19:12 MDM - Extremity (Nontraumatic) Medical Decision Making No fracture on x-ray. Joint effusion is present. Ultrasound is negative for DVT but does show a complex Rao's cyst medially. Joint is aspirated, 56 cc of slightly cloudy fluid aspirated. Sent for Gram stain culture and cell count and crystal fluid analysis. He tolerated well. Results show only 6500 whites with distribution of polynuclear mononuclear cells indicative of inflammatory joint. Septic joint is much less likely. He is feeling improved after aspiration to some degree. He will be allowed home with a short course of steroids, ice, knee immobilizer for mobility/weightbearing, and close outpatient follow-up. Lab Data Radiology Impressions Knee X-Ray 02/21/23 19:47 IMPRESSION: No acute radiographic findings. Venous Duplex 02/21/23 19:47 IMPRESSION: 1. No sonographic evidence of deep vein thrombosis. 2. 2.3 x 3.2 x 5.2 cm complex popliteal cyst. Laboratory Results Fluid Crystals Sent 02/21/23 21:18 Synovial Color Yellow (PALE YELLOW) 02/21/23 21:18 Synovial Appearance Hazy (CLEAR) 02/21/23 21:18 Synovial WBC 6511 /uL (0-150) H 02/21/23 21:18 Synovial RBC 1 10^3/uL (0-0) H 02/21/23 21:18 Synovial Mononuclear 1.420 10^3/uL 02/21/23 21:18 Synov Polynuclear WBCs 5.091 10^3/uL 02/21/23 21:18 Synovial Other Cells Not Reportable 02/21/23 21:18 Synovial Polynuclear % 78.200 % 02/21/23 21:18 Synovial Mononuclear % 21.800 % 02/21/23 21:18 Path Cons w/Slide Yes 02/21/23 21:18 XR interpretation done by ED provider, pending radiology final review Discharge Plan Discharge Patient Disposition: Home Clinical Impression: Effusion of knee joint, left Condition: Stable Prescriptions: New hydrocodone-acetaminophen 5-325 mg tablet 1 tab PO Q8H PRN (Reason: pain) Qty: 10 0RF Medrol (Driss) 4 mg tablets,dose pack See Rx Instructions .ROUTE .COMPLEX Qty: 21 0RF Rx Instructions: orally per package directions No Action tamsulosin 0.4 mg capsule 0.4 mg PO BID atorvastatin 40 mg tablet 40 mg PO DAILY omeprazole 20 mg capsule,delayed release(DR/EC) 20 mg PO DAILY alprazolam 0.5 mg tablet 0.5 mg PO DAILY PRN (Reason: Anxiety) metformin 500 mg tablet 500 mg PO DAILY atenolol 25 mg tablet 25 mg PO DAILY sertraline 100 mg tablet 100 mg PO BID ciprofloxacin HCl [Cipro] 500 mg tablet 500 mg PO BID sulfamethoxazole-trimethoprim 800-160 mg tablet 1 tab PO BID Qty: 20 1RF mirtazapine 7.5 mg tablet 7.5 mg PO DAILY albuterol sulfate [ProAir HFA] 90 mcg/actuation HFA aerosol inhaler 2 puff inhalation Q6H PRN (Reason: shortness of breath) hydrocodone-acetaminophen 5-325 mg tablet 1 tab PO Q6H PRN (Reason: Renal colic) 4 Days Qty: 16 0RF Discharge Orders: Discharge ED (Routine); Ordered 02/21/23 Ordered By: Evan Germain Referrals: Tim Jaquez DO [Physician] - 1-3 days Jh Morejon [Primary Care Provider] - 1-3 days Patient Instructions: Swollen Knee Joint (ED), Opioid Safety, Pain Management Activity Restrictions/Additional Instructions: Medication as directed. Ice to the knee. You may bear weight as tolerated. Return for significant fever, other concerning symptoms. Follow-up with orthopedics this coming week regarding the knee swelling and culture results. Number is listed above. Coding Level of Care Code ED Business Unit Manager for Lucy Hansen
[2023-02-21] MEDS: oxyCODONE-APAP 5-325 mg Tablet 2 TAB PO (20:24)
[2023-02-21] MEDS: lidocaine 1% INJ 10 mL (per mL) 20 ML INJECTION (21:18)
[2023-02-21] MEDS: BUPivacaine 0.5% INJ 10 mL INJECTION (21:18)
[2023-02-21 21:50] LABS: Crystals, Fluid SENT; Cyto Order Verification No Order
[2023-02-21 22:00] VITALS: BP 144/75; PULSE 86; RESP 16; O2SAT 96
[2023-02-21 22:53] LABS: RBC Synovial Fluid 1 10^3/uL (0-0); Synovial Fluid Polynuclear # 5.091 10^3/uL; WBC Synovial Fluid 6511 /uL (0-150)
[2023-02-21 22:54] LABS: Appearance Synovial Fluid HAZY (CLEAR); Color Synovial Fluid YELLOW (PALE YELLOW); PATH Referal YES
[2023-02-21 23:31] VITALS: BP 144/75; PULSE 86; RESP 16; TEMP 37.6; O2SAT 96
== END 2023-02-21 23:32 | disposition home or self-care (01) ==
PROVIDERS: Emergency Provider Emergency Medicine; PCP Family Medicine
DX: M25.462 Effusion, left knee (principal); Z79.84 Long term (current) use of oral hypoglycemic drugs; Z85.51 Personal history of malignant neoplasm of bladder; E11.9 Type 2 diabetes mellitus without complications; F17.210 Nicotine dependence, cigarettes, uncomplicated; M79.605 Pain in left leg
CPT/HCPCS: 20610; 29530; 73562; 80503; 87070; 87075; 87205; 89050; 93971; 99284; E0114; J3490

== ENCOUNTER 2024-04-19 15:42 | Outpatient (CLI) | payer MEDICARE, SELFPAY ==
--- NOTE | 2024-04-19 15:49 | CTR_ITS ---
PROCEDURE INFORMATION: Exam: CT Chest Without Contrast; Diagnostic Exam date and time: 04/19/2024 3:51 PM Age: 69 years old Clinical indication: Malignant neoplasm of urinary bladder; Prior surgery;Bladder, left kidney TECHNIQUE: Imaging protocol: Diagnostic computed tomography of the chest without contrast. Radiation optimization: All CT scans at this facility use at least one of these dose optimization techniques: automated exposure control; mA and/or kV adjustment per patient size (includes targeted exams where dose is matched to clinical indication); or iterative reconstruction. COMPARISON: CT abdomen pelvis wo/w [id number] 09/11/2021 8:31 AM RADIATION DOSE METRICS: Total DLP (mGy-cm): 1096.41 FINDINGS: Lungs: Unremarkable. No consolidation. No masses. Pleural spaces: Unremarkable. No pneumothorax. No pleural effusion. Heart: Unremarkable. No cardiomegaly. No pericardial effusion. Lymph nodes: Unremarkable. No enlarged lymph nodes. Vasculature: Unremarkable. No aortic aneurysm. Bones/joints: There are degenerative changes in the visualized spine. Soft tissues: Unremarkable. PROCEDURE INFORMATION: Exam: CT Abdomen And Pelvis Without Contrast Exam date and time: 04/19/2024 3:51 PM Age: 69 years old Clinical indication: Malignant neoplasm of urinary bladder; Prior surgery;Bladder, left kidney TECHNIQUE: Imaging protocol: Computed tomography of the abdomen and pelvis without contrast. Radiation optimization: All CT scans at this facility use at least one of these dose optimization techniques: automated exposure control; mA and/or kV adjustment per patient size (includes targeted exams where dose is matched to clinical indication); or iterative reconstruction. COMPARISON: CT abdomen pelvis wo/w [id number] 09/11/2021 8:31 AM RADIATION DOSE METRICS: Total DLP (mGy-cm): 1096.41 FINDINGS: Liver: There is a diffuse decrease in hepatic parenchymal density, consistent with fatty infiltration. Gallbladder and biliary ducts: Normal. No calcified stones. No ductal dilation. Pancreas: Normal. No ductal dilation. Spleen: Normal. No splenomegaly. Adrenal glands: There is a 13 mm focal hypodense mass in the left adrenal gland, consistent in appearance and density with a benign adrenal adenoma. Kidneys and ureters: The left kidney has been surgically removed. Stomach and bowel: Unremarkable. No obstruction. No mucosal thickening. Appendix: A normal appendix is identified. Intraperitoneal space: Unremarkable. No free air. No significant fluid collection. Vasculature: There is scattered atherosclerotic plaque in the aorta and iliac arteries. Lymph nodes: Unremarkable. No enlarged lymph nodes. Urinary bladder: Status post radical cystectomy with ileal conduit. Urostomy pouch in the right upper quadrant. Reproductive: Unremarkable as visualized. Bones/joints: There are degenerative changes in the visualized spine. Soft tissues: Unremarkable. CT/[place] [id number] IMPRESSION: No acute findings. IMPRESSION: 1. Status post radical cystectomy with ileal conduit. 2. Fatty infiltration of the liver. 3. There is a 13 mm focal hypodense mass in the left adrenal gland, consistent in appearance and density with a benign adrenal adenoma. COMMENTS: Consistent with the [employer]'s Incidental Findings Committee white paper (J Am Claudine Radiol 2017): For any incidental adrenal lesion greater than or equal to 1 cm but less than or equal to 4 cm classified in this report as benign, likely benign, or containing fat (including classification as an adenoma or myelolipoma), no follow-up imaging is recommended per consensus recommendations based on imaging criteria. Further lab evaluation could be pursued if warranted based on clinical findings.
== END 2024-04-19 15:43 | disposition home or self-care (01) ==
LOC: RAD 15:44
PROVIDERS: PCP Family Medicine; Visit Provider Urology
DX: C67.9 Malignant neoplasm of bladder, unspecified (principal); D35.02 Benign neoplasm of left adrenal gland; K76.0 Fatty (change of) liver, not elsewhere classified; Z90.6 Acquired absence of other parts of urinary tract
CPT/HCPCS: 71250; 74176

== ENCOUNTER 2024-09-29 12:29 | Outpatient (CLI) | payer MEDICARE, SELFPAY ==
--- NOTE | 2024-09-29 12:33 | CT_ITS ---
WS: [id number] CT CHEST, ABDOMEN AND PELVIS WITH CONTRAST HISTORY: MALIGNANT NEOPLASM OF URINARY BLADDER TECHNIQUE: Contiguous 5 mm axial imaging performed through the chest, abdomen and pelvis with IV contrast, oral contrast has been provided. Coronal and sagittal reformats chest. Coronal and sagittal reformats through the abdomen and pelvis. All CT scans at [facility] use at least one of these dose optimization techniques: automated exposure control; mA and/or kV adjustment per patient size (includes targeted exams where dose is matched to clinical indication); or iterative reconstruction. CONTRAST: Omnipaque 350; 100 mL IV. DLP: 1337.08 mGy.cm COMPARISON: 04/19/2024, 09/11/[address]: Lungs are clear and well aerated. No pulmonary mass or nodule. No pneumonia. No pericardial or pleural effusions. Heart is normal size. Mild atherosclerosis aorta. Normal size pulmonary artery. Mild esophageal wall thickening is diffuse. No mediastinal or hilar adenopathy. Advanced degenerative changes in the thoracic spine. Disc spaces are narrowed. Schmorl's nodes defects at several levels. Endplate osteophytes. Similar to the prior exam. Several healed rib fractures in the posterior inferior LEFT thorax. Abdomen CT: Mild hepatic steatosis. No mass. Normal gallbladder and pancreas. Normal spleen. 2 low-attenuation nodules in the LEFT adrenal gland. The largest is 1.4 cm which is similar to the prior study. The smaller nodule measures 0.7 cm. Mild atherosclerosis aorta. Normal size RIGHT kidney. No obstruction. Very slight prominence of the RIGHT ureter. LEFT kidney has been surgically removed. Status post cystectomy with ileal conduit. There is no obstruction at the junction of the RIGHT ureter with the ileal conduit. Urostomy pouch in the RIGHT lower quadrant with no obstruction. No ascites or adenopathy. No GI tract obstruction. Pelvic CT: Status post cystectomy. No adenopathy or ascites. Advanced degenerative changes in the lumbar spine. Sclerotic changes throughout the lumbar vertebral bodies with vacuum disc phenomenon. CT/CT chest abdpel w/*[id number] IMPRESSION: 1. No metastatic disease within the lungs. 2. No chest, abdomen or pelvic lymphadenopathy. 3. Status post cystectomy with RIGHT ileal conduit. 4. Status post LEFT nephrectomy. 5. Stable LEFT adrenal gland nodules. 6. Advanced degenerative changes in the lumbar and thoracic spine. Small metas tatic sites would be difficult to exclude. Majority of these changes appear to be related to spondylosis and degenerative disc disease.
[2024-09-29] MEDS: iohexol 350 mg/mL 500 mL Btl (per mL) IV (12:42)
[2024-09-29] MEDS: iohexol 350 mg/mL 500 mL Btl (per mL) PO (12:43)
== END 2024-09-29 12:30 | disposition home or self-care (01) ==
PROVIDERS: PCP Family Medicine; Visit Provider Family Medicine
DX: C67.9 Malignant neoplasm of bladder, unspecified (principal); C66.2 Malignant neoplasm of left ureter; Z93.6 Other artificial openings of urinary tract status; C80.1 Malignant (primary) neoplasm, unspecified; Z98.890 Other specified postprocedural states; E27.8 Other specified disorders of adrenal gland; M47.894 Other spondylosis, thoracic region; M47.896 Other spondylosis, lumbar region; M51.34 Other intervertebral disc degeneration, thoracic region; M51.369 Other intervertebral disc degeneration, lumbar region without mention of lumbar back pain or lower extremity pain; I70.0 Atherosclerosis of aorta; K22.89 Other specified disease of esophagus; R93.7 Abnormal findings on diagnostic imaging of other parts of musculoskeletal system; M25.78 Osteophyte, vertebrae; Z87.81 Personal history of (healed) traumatic fracture; K76.0 Fatty (change of) liver, not elsewhere classified
CPT/HCPCS: 71260; 74177

== ENCOUNTER 2024-11-16 20:40 | Emergency (ER) | payer MEDICARE, SELFPAY ==
--- OUTSIDE RECORDS SUMMARY | 2024-11-10 14:40 | XMS_ITS | Encounter Summary ---
Author Organization [facility] Address [address] [place] [address] Care Team Providers Care Horseradish Maker Name Role Phone Jh Morejon MD Primary Care Provider [phone] Reason for Visit * Reason Comments Annual Wellness Visit (Medicare) Medication Review Discuss pain med dos ing and frequency LOW BACK PAIN Doesn't radiate to l egs Cyst Soft cyst type areas on arm and shoulder low heart rate Encounter Details Date Type Department Care Team (Latest Contact Info) Description 11/10/2024 2:40 PM CDT Office Visit [facility] [address] [phone] Jh Morejon MD [address] [phone] Medicare annual wellness visit, subsequent (Primary Dx); Panlobular emphysema ([facility]/HCC); Type 2 diabetes mellitus with stage 3a chronic kidney disease, without long-term current use of insulin ([facility]/HCC); Chronic kidney disease, stage 3a (CMS/HCC); S/P ileal conduit ([facility]/HCC); Tobacco use; Chronic bilateral low back pain with bilateral sciatica; Mild episode of recurrent major depressive disorder; Benign hypertension; Tremor; VICTOR MANUEL (generalized anxiety disorder); Chronic pain due to neoplasm; Alcohol dependence in remission (CMS/HCC); Bradycardia; Diabetic polyneuropathy associated with type 2 diabetes mellitus ([facility]/HCC); 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 Not very hard 09/09/2022 Food Insecurity Answer Date Recorded In the past 12 months, have you worried that your food would run out before you had money to buy more? Sometimes true 2022 In the past 12 months, did y ou run out of food and didn't have money to buy more? Never true 09/09/2022 Transportation Needs Answer Date Record ed In the past 12 months, has l ack of transportation kept you from medical appointments or from getting medications? 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 Gender Identity Not on file Sexual Orientation Not on file documented as of this encounter Last Filed Vital Signs Vital Sign Reading Time Taken Comments Blood Pressure 120/80 11/10/2024 2:20 PM CDT Pulse 50 11/10/2024 2:20 PM CDT Temperature 36 C (96.8 F) 11/10/2024 2:20 PM CDT Respiratory Rate 18 11/10/2024 2:20 PM CDT Oxygen Saturation 97% 11/10/2024 2:20 PM CDT Inhaled Oxygen Concentration - - Weight 100.2 kg (221 lb) 11/10/2024 2:20 PM CDT Height 177.8 cm (5' 10 ) 11/10/2024 2:20 PM CDT Body Mass Index 31.71 11/10/2024 2:20 PM CDT documented in this encounter Progress Notes * Jh Morejon MD - 11/10/2024 2:40 PM CDT Kip Henry is a 69 y.o. male here today for his Medicare Annual Wellness Visit. Also duefor Chronic Conditions Coordination. MEDICARE WELLNESS VISIT HEALTH RISK ASSESSMENT Completed by and reviewed with patient/caregiver. See Annual Wellness Visit HRA Flowsheet In general, how would you rate your health?: Very Good (11/10/24 1440) Are you basically satisfied with your life? : Yes (11/10/24 144) MEDICAL RECORD REVIEWED AND UPDATED, INCLUDING: Demographics Current providers and suppliers: Patient Care Team: Jh Morejon MD as PCP - General (Family Practice) Denise Vigil FNP (NURSE PRACTITIONER) Anna Bernal FNP as Registered Nurse (NURSE PRACTITIONER) Amy Panda FNP (Nurse Practitioner Family) Iasbel Castaneda FNP as Nurse Practitioner (Nurse Practitioner Family) Past Medical and Surgical History Family History Social History Allergies CURRENT MEDICATIONS REVIEWED AND RECONCILED silver sulfADIAZINE Apply to affected area daily. [DISCONTINUED] oxyCODONE-acetaminophen Take 1 Tablet by mouth every 8 hours as needed for Pain, Severe. Max Daily Amount: 3 Tablets LORazepam TAKE 1 TABLET BY MOUTH EVERY 8 HOURS NEEDED FOR ANXIETY. sertraline TAKE 2 TABLETS BY MOUTH EVERY DAY nebulizer Length of need 99 months Nebulizer with compressor, Kit: Disposable Nebulizer Kit, 2 per month, filters , areosol mask: Yes.Name of Medication: Albuterol ipratropium-albuteroL Take 3 mL by inhalation every 6 hours as needed for Shortness of Breath, Wheezing or Other (See Comment) (cough). nebulizer Length of need 99 months Nebulizer with compressor, Kit: Permanent Nebulizer Kit, 1 per 6 months, filters , areosol mask: Yes. Name of Medication: albuterol [DISCONTINUED] promethazine-dextromethorphan Take 5 mL by mouth every 4 hours as needed for Cough. albuterol sulfate Take 2 Puffs by inhalation every 6 hours as needed for Respiration. [DISCONTINUED] prochlorperazine maleate Take 1 Tablet (10 mg) by mouth every 8 hours as needed for Nausea/Emesis. amLODIPine Take 1 Tablet (5 mg) by mouth daily. omeprazole Take 1 Capsule (20 mg) by mouth daily. mirtazapine Take 1 Tablet (30 mg) by mouth daily at bedtime. metFORMIN Take 2 Tablets (1,000 mg) by mouth 2 times daily with meals. fenofibrate nanocrystallized Take 1 Tablet (48 mg) by mouth daily. atorvastatin Take 1 Tablet (40 mg) by mouth daily. tiZANidine Take 1 Tablet (4 mg) by mouth every 8 hours. diclofenac sodium Apply 4 Grams to affected area every 12 hours as needed for Pain. tadalafil Take 1 Tablet (5 mg) by mouth daily. Miscellaneous Medical Supply Ostomy supplies, QS for 30 days: drainage bag, miller rings 3/4 th size, barrier convex, syeda flux pouch, 1/2 ring barrier that goes on the out side to seal the bag, miller barrier strips aclastic, large gloves pramoxine-zinc OXIDE Apply to affected area 3 times daily as needed for Other (See Comment) (Rectalpain). cpap CPAP @ auto-titrate 6-16 cwp with heated humidifier. Length of need:99 months; mask with headgear every 6 months; mask only every 3 months; cushions per month; Tubing heated 1 every 3 months, water chamber 1 every 6 months, chin strap 1 every 6 months, filters disposable 2 per month, filters reusable 1 per 6 months. promethazine Take 0.5-1 Tablets (12.5-25 mg) by mouth every 8 hours as needed for Nausea/Emesis. fluticasone propionate Administer 2 Sprays in each nostril daily. mometasone Administer 2 Sprays in each nostril daily. ondansetron naloxone EMERGENCY USE ONLY: Administer 1 spray (4 mg) in one nostril one time. May repeat in alternating nostrils every 2-3 min until responsive or EMS arrives. [DISCONTINUED] Ozempic Inject 0.25 mg by subcutaneous injection every 7 days. (Patient not taking: Reported on 11/10/2024) [DISCONTINUED] atenoloL Take 1 Tablet (25 mg) by mouth daily. In general, how often do you forget or decide not to take one or more of your medications?: Seldom (11/10/24 1440) EXAMINATION(MA may complete) BP 120/80 (BP Location: Right arm, Patient Position (BP): Sitting, BP Cuff Size: Large Adult) Pulse (!) 50 Temp 96.8 ??F (36 ??C) (Temporal) Resp 18 Ht 5' 10 (1.778 m) Wt 100.2 kg (221 lb) SpO2 97% BMI 31.71 kg/m?? Visual Acuity: Hearing: Have you been told by others you turn up your TV volume too high or that you have problems hearing?: No (11/10/241439) FUNCTIONAL ABILITY, FRAILTY Have you fallen one or more times in the past year?: No (11/10/241439) Patient reports needing help with: (ADL's) Housekeeping: Yes (11/10/241439) Do you currently use any medical equipment, such as a cane, walker, wheelchair, or oxygen tank?: No(11/10/241439) SAFETY AND PHYSICAL ACTIVITY Do you fasten your seat belt when you are in the car?: Yes (11/10/241439) Do you feel safe at home?: Yes (11/10/241439) How many days a week do you do at least 10 - 15 minutes of some type of exercise or physical activity?: 2 - 3 days - education automatically filed to AVS (11/10/241439) RISK ASSESSMENT (QM) Depression Screen Positive: PHQ-2 score >= 3 or PHQ-9 score >= 9 PHQ-2 Total: 0 (11/10/2024 2:40 PM) PHQ-9 Total: 2 (11/10/2024 2:40 PM) DEPRESSION PLAN OF CARE His depression screen was negative. (PHQ2 <3, PHQ9 <10, [place] <11) How often do you feel angry? : Never (11/10/241439) How often do you feel lonely?: Never (11/10/241439) Any changes or new problems with your mental or emotional health, such as stress or anxiety?: No (11/10/241439) Opioid Use Current Opioids:oxyCODONE-acetaminophen (PERCOCET) 10-325 mg Tablet [[id number]] Discussed with thepatient the risks of dependence that may occur with the use of opioids. This discussion included education that using opioids increases the risk of addiction and overdose. It is dangerous to take opioid drugs with alcohol, benzodiazepines, and other central nervous system depressants. This prescription has been deemed necessary to help with pain symptoms, and alternative treatments were discussed. Also discussed specifically the highly addictive nature of the controlled dangerous substance, therisk of developing a dependence on the controlled dangerous substance, and the risks of taking more opioids than prescribed or mixing sedatives, benzodiazepines, or alcohol can result in fatal respiratory depression. During the past 4 weeks, would you say you have had...: Severe pain (11/10/24 1440) Current treatment plan is:effective Information regarding non-opioid treatment options provided. Cognitive Impairment Cognitive ability observed and assessed throughout the exam. Structured assessment: not indicated based on this assessment. . PREVENTIVE CARE GUIDELINES Written Screening Schedule for the next 5-10 years developed and provided to patient. Preventive Care Recommendations for AVERAGE Risk Adult Males > 65yo Measure USPSTF Recommendation PSA testing Men 55-69: individual decision based on review of potential benefits and harms. Men >70 not recommended Colon Cancer Screening Colonoscopy every 10 yrs or Fecal Occult Blood testing yearly ages 45-75 Abdominal Aortic Aneurysm Men 65 -75 who have ever smoked. Lung Cancer Screening Annual low-dose CT, adults 50 - 80 w/ >20 pack-year smoking hx who currently smoke or have quit w/in 15 yrs (*Medicare will not cover for >77 yo) Lipid Screening Identification of dyslipidemia and calculation of 10-year CVD event risk requires universal lipid screening in adults ages 40 - 75 Pre-diabetes/Diabetes Screening Adults 35-70 who are overweight or obese Hepatitis C Screening Adults 18-79 Immunizations COVID-19 Influenza Pneumococcal RSV Tdap/Td Zoster (Shingles) ADVANCE CARE PLANNING (optional) Do you have an Advance Directive (Living Will)?: No (11/10/24 1440) Advance Care Planning Primary Emergency Contact: JAK HENRY, Relation: Son Secondary Emergency Contact: SHAVON HENRY, Relation: Spouse Is the person(s) listed above who you would want to be your trusted decision maker? Yes Have you discussed your healthcare wishes with them? yes TREATMENT WISHES What abilities are so critical to your life that you can't imagine living without them: Being able to talk, Being able to eat, Doing daily activities like bathing, dressing, toileting, moving around,Enjoying my hobbies/joys/passions, and Being alert and aware of my surroundings When time is limited to days, weeks or months, where do you want to be?: Unknown at this time CODE STATUS Code Status: Full Code Code status was addressed and ordered as FULL CODE Discussed 11/10/2024 with patient and trusted decision maker or DPOA-H. Participation was voluntary,and the nature of Advance Directives was part of the discussion. Next steps : Revisit this discussion if there is a new diagnosis, decline in functional abilities, or hospitalization Jh Morejon MD Number of minutes spent performing Advance Care Planning : <16 RISK FACTORS AND CONDITIONS FOR WHICH INTERVENTIONS ARE RECOMMENDED AND/OR UNDERWAY Are you currently on any kind of special diet? : No (11/10/24 1440) Do you have problems with your teeth or dentures?: No (11/10/24 144) During the past 4 weeks, would you say you have had...: Severe pain (11/10/24 144) Do you have any concerns about your sexual health?: Patient Declined (11/10/24 144) No new issues identified Tobacco Use EDUCATION/COUNSELING/REFERRAL(S) None indicated Orders Placed This Encounter MEDICATION COMPLIANCE DRUG SCREEN pregabalin (LYRICA) 50 mg Capsule Mr. Henry voiced understanding and agreement with the treatment plan. All questions were answered. Fpoux-Hxbep-Zvoiemc provided to patient. ACUTE AND/OR CHRONIC ISSUES REQUIRING EVALUATION AND MANAGEMENT OUTSIDE THE WELLNESS VISIT (Provider only) [facility] 11/10/2024 Subjective: Kip Henry is a 69 y.o. male who comes today for evaluation of Annual Wellness Visit (Medicare), Medication Review (Discuss pain med dosing and frequency), LOW BACK PAIN (Doesn't radiate to legs), Cyst (Soft cyst type areas on arm and shoulder), and low heart rate . History of Present Illness The patient presents for evaluation of cancer, low heart rate, back pain, and nicotine dependence. He has been abstaining from alcohol for over a year and does not currently consult with any other physicians, including urologists or oncologists. His cancer is in remission, and he is not undergoingany active treatments. The pelvic wound has healed without any drainage or leakage from under the scrotum. Bowel movements are regular, and his urine flows normally into the bag without any blood or mucus. The skin around the ostomy is normal with no breakdown. He reports a small, soft knot on his arm. He has been experiencing fatigue and a low heart rate, which was first noticed a few months ago. Heis currently on atenolol. He continues to smoke but has reduced his intake and plans to use patches to aid in quitting. He has previously used patches, which were effective for a period. He reports that his depression is well-managed. He experiences heartburn and uses oxygen at night. He has undergone a sleep study and qualified forCPAP, but his Medicaid coverage lapsed before he could obtain the device. His Medicaid was reinstated last month. He reports intermittent lower back pain, which he describes as shooting and similar to tailbone pain. He is not currently on a weekly injection and has never taken Lyrica. He is unable to tolerate gabapentin. PAST SURGICAL HISTORY: - Ileal conduit - Left kidney removal SOCIAL HISTORY The patient quit drinking over a year ago. He admits to smoking but has slowed down and is planningto use patches to quit. Review of Systems Constitutional: Positive for malaise/fatigue. Negative for fever. Respiratory: Negative for shortness of breath. Cardiovascular: Negative for chest pain. Gastrointestinal: Negative for abdominal pain. Musculoskeletal: Positive for back pain and joint pain. Skin: Negative for rash. Neurological: Negative for weakness. Objective: Vitals: 11/10/24 1420 Temp: 96.8 ??F (36 ??C) Pulse: (!) 50 BP: 120/80 Resp: 18 SpO2: 97% Physical Exam Vitals and nursing note reviewed. Constitutional: General: He is not in acute distress. Appearance: Normal appearance. He is not ill-appearing. HENT: Head: Normocephalic and atraumatic. Eyes: Conjunctiva/sclera: Conjunctivae normal. Cardiovascular: Rate and Rhythm: Normal rate and regular rhythm. Heart sounds: Normal heart sounds. Pulmonary: Effort: Pulmonary effort is normal. Breath sounds: Normal breath sounds. Abdominal: Palpations: Abdomen is soft. Musculoskeletal: Cervical back: Neck supple. Skin: Findings: No rash. Neurological: Mental Status: He is alert and oriented to person, place, and time. Mental status is at baseline. Psychiatric: Mood and Affect: Mood normal. Behavior: Behavior normal. Past medical history, surgical history and social history reviewed. Past Medical History: Diagnosis Date Asthma Bladder cancer (CMS/HCC) Urothelial CA COPD (chronic obstructive pulmonary disease) (CMS/HCC) Enlarged liver Enlargement of spleen Sleep apnea Procedures Assessment/Plan: ICD-10-CM ICD-9-CM 1. Medicare annual wellness visit, subsequent Z00.00 V70.0 2. Panlobular emphysema (CMS/HCC) J43.1 492.8 3. Type 2 diabetes mellitus with stage 3a chronic kidney disease, without long- term current use of insulin ([facility]) E11.22 250.40 N18.31 585.3 4. Chronic kidney disease, stage 3a ([facility]) N18.31 585.3 5. S/P ileal conduit ([facility]) Z93.6 V44.6 6. Tobacco use Z72.0 305.1 7. Chronic bilateral low back pain with bilateral sciatica M54.42 724.2 M54.41 724.3 G89.29 338.29 8. Mild episode of recurrent major depressive disorder F33.0 296.31 9. Benign hypertension I10 401.1 10. Tremor R25.1 781.0 11. VICTOR MANUEL (generalized anxiety disorder) F41.1 300.02 12. Chronic pain due to neoplasm G89.3 338.3 13. Alcohol dependence in remission ([facility]) F10.21 303.93 14. Bradycardia R00.1 427.89 15. Diabetic polyneuropathy associated with type 2 diabetes mellitus ([facility]) E11.42 250.60 pregabalin (LYRICA) 50 mg Capsule 357.2 16. 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 History of cancer of ureter Z85.54 V10.59 18. History of bladder cancer Z85.51 V10.51 Assessment & Plan 1. 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 The pelvic wound has healed without any drainage or leakage from under the scrotum. Bowel movements are regular, and his urine flows normally into the bag without any blood or mucus. The skin around the ostomy is normal with no breakdown. A CT scan of the chest, abdomen, and pelvis conducted in 09/2024 revealed no metasta sis or lymph node swelling. He has an ileal conduit and had a nephrectomy on the left side. Unchanged nodules were observed on the left adrenal gland. Blood work from 08/2024 indicated normal blood sugar levels, kidney function improvement, liver enzymes were normal, stable blood sugar, and a hemoglobin A1c of 6.6, which is within the controlled diabetic range. No protein was detected in his urine, and his blood count did not indicate anemia. Overall lab work in 08/2024 looked normal. 2. Low heart rate. He has been experiencing fatigue and a low heart rate, which was first noticed a few months ago. Heis currently on atenolol. The plan is to discontinue atenolol to see if his heart rate improves andsubsequently alleviates his fatigue. If his blood pressure increases, the dosage of amlodipine willbe adjusted accordingly. 3. Nicotine dependence. He continues to smoke but has reduced his intake and plans to use patches to aid in quitting. 4. Depression. His depression is well-managed. 5. Heartburn. He experiences heartburn and uses oxygen at night. He has undergone a sleep study and qualified forCPAP, but his Medicaid coverage lapsed before he could obtain the device. His Medicaid was reinstated last month. 6. Back pain. He reports intermittent lower back pain, which he describes as shooting and similar to tailbone pain. A CT scan revealed significant arthritis in his spine. He is currently at the maximum dosage of oxycodone. A prescription for Lyrica will be provided to manage his back pain. Follow-up The patient will follow up in 3 months in 01/2025. hJ Morejon MD The author of this note, patient (or authorized field representative/health education), and all other persons present consent to the audio recording of this visit for charting documentation purposes. This note was automatically generated by a Teleborder[employer] AI technology ([employer]), reviewed, edited, and finalized by Jh Morejon MD. 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 Office Visit [address] [address] [place] [phone] Jh Morejon MD [address] [place] [address] documented as of this encounter Procedures Procedure Name Priority Date/Time Associated Diagnosis Comments MEDICATION COMPLIANCE DRUG SCREEN Routine 11/10/2024 3:19 PM CDT Other intermediate (current) drug therapy documented in this encounter Results * (ABNORMAL) MEDICATION COMPLIANCE DRUG SCREEN (11/10/2024 3:19 PM CDT) Summary [facility] Comment: Prescribed Prescribed Not Prescribed Consistent Inconsistent Inconsistent Oxycodone Xanax(TM) Prescribed Drug 1 Oxycodone [facility] Prescribed Drug 2 Xanax(TM) [facility] BUPRENORPHINE (URINE) NEGATIVE <5 ng/mL [facility] Fentanyl NEGATIVE <0.5 ng/mL [facility] Propoxyphene, Urine NEGATIVE <300 ng/mL [facility] MDA (Ecstasy Mtb), Urine NEGATIVE <200 ng/mL [facility] MDMA (Ecstasy), Urine NEGATIVE <200 ng/mL [facility] MDMA Comments [facility] Comment:See LDT Notes Meprobamate, Urine NEGATIVE <1000 ng/mL [facility] Carisoprodol Comments [facility] Comment:See LDT Notes Tapentadol, Urine NEGATIVE <50 ng/mL [facility] Nortapentadol, Urine NEGATIVE <50 ng/mL [facility] Tapentadol Comments [facility] Comment:See LDT Notes O-Desmethyltramado l, Urine NEGATIVE <100 ng/mL [facility] Tramadol, Urine NEGATIVE <100 ng/mL [facility] Tramadol Comments [facility] Comment:See LDT Notes Gabapentin, Urine NEGATIVE <1000 ng/mL [facility] Gabapentin Comments [facility] Comment:See LDT Notes Meperidine, Urine NEGATIVE <100 ng/mL [facility] Normeperidine, Urine NEGATIVE <100 ng/mL [facility] Meperidine Comments [facility] Comment:See LDT Notes PREGABALIN, QUANT URINE NEGATIVE <1000 ng/mL [facility] Pregabalin Comments [facility] Comment:See LDT Notes Alcohol Metabolites, Urine NEGATIVE <500 ng/mL [facility] AMPHETAMINES (URINE) NEGATIVE <500 ng/mL [facility] BARBITURATES (URINE) NEGATIVE <300 ng/mL [facility] BENZODIAZEPINES (URINE) NEGATIVE CONFIRMED <100 ng/mL [facility] Alpha-hydroxyalpra zolam, Urine NEGATIVE <25 ng/mL [facility] medMATCH aOH alprazolam, Urine INCONSISTENT( A) [facility] ALPHA-HYDROXYMIDAZ OLAM QUANT, URINE NEGATIVE <50 ng/mL [facility] Alpha-Hydroxytriaz olam, Urine NEGATIVE <50 ng/mL [facility] Aminoclonazepam, Urine NEGATIVE <25 ng/mL [facility] Hydroxyethylfluraz epam, Urine NEGATIVE <50 ng/mL [facility] Lorazepam, Urine NEGATIVE <50 ng/mL [facility] NORDIAZEPAM QUANT, URINE NEGATIVE <50 ng/mL [facility] Oxazepam, Urine NEGATIVE <50 ng/mL [facility] Temazepam, Urine NEGATIVE <50 ng/mL [facility] BENZODIAZEPINES, COMMENT [facility] Comment:See LDT Notes COCAINE & METABOLITE (URINE) NEGATIVE <150 ng/mL [facility] 6 ACETYLMORPHINE, URINE NEGATIVE <10 ng/mL [facility] CANNABINOIDS QUAL, URINE NEGATIVE <20 ng/mL [facility] Methadone Metabolite, Urine NEGATIVE <100 ng/mL [facility] OPIATE CLASS (URINE) NEGATIVE CONFIRMED <100 ng/mL [facility] Codeine, Urine NEGATIVE <50 ng/mL [facility] Hydrocodone, Urine NEGATIVE <50 ng/mL [facility] Hydromorphone, Urine NEGATIVE <50 ng/mL [facility] Morphine, Urine NEGATIVE <50 ng/mL [facility] Norhydrocodone, Urine NEGATIVE <50 ng/mL [facility] OPIATES, COMMENT [facility] Comment:See LDT Notes OXYCODONE CLASS (URINE) POSITIVE(A) <100 ng/mL [facility] Noroxycodone, Urine 1362(H) <50 ng/mL [facility] medMATCH Noroxycodone, Urine CONSISTENT [facility] Oxycodone, Urine 571(H) <50 ng/mL [facility] medMATCH Oxycodone, Urine CONSISTENT [facility] Oxymorphone, Urine 202(H) <50 ng/mL [facility] medMATCH Oxymorphone, Urine CONSISTENT [facility] Oxycodone Comments Q [facility] Comment:See Oxycodone Notes, LDT Notes PHENCYCLIDINE, URINE NEGATIVE <25 ng/mL [facility] Creatinine, Urine 82.9 > or = 20.0 mg/dL [facility] PH 8.7 4.5 - 9.0 [facility] OXIDANT, URINE NEGATIVE <200 mcg/mL [facility] ZOLPIDEM, URINE NEGATIVE <5 ng/mL [facility] Zolipidem Metabolite, Urine NEGATIVE <5 ng/mL [facility] Zolpidem Comments [facility] Comment:See LDT Notes COMMENT TOXICOLOGY [facility] Comment: This drug testing is for medical treatment only. Analysis was performed as non-forensic testing and these results should be used only by healthcare providers to render diagnosis or treatment, or to monitor progress of medical conditions. Oxycodone Notes: Oxycodone, Noroxycodone, Oxymorphone detected is consistent with the use of the drug Oxycodone. Oxymorphone detected is consistent with the use of the drug Oxymorphone. Oxymorphone can be a prescribed drug and is also a metabolite of Oxycodone. LDT Notes: Confirmation tests were developed and their analytical performance characteristics have been determined by [facility]. It has not been cleared or approved by the FDA. This assay has been validated pursuant to the CLIA regulations and is used for clinical purposes. medMATCH(R) enables providers to identify if drug use is consistent or inconsistent with a corresponding prescribed medication(s) list. Healthcare Providers needing Interpretation assistance, please contact us at [phone] ( ) M-F, 8am to 10pm EST Test Performed at: [facility] [address] [place] [address] Benedicto HERNANDEZ Urine URINE SPECIMEN OBTAINED BY CLEAN CATCH PROCEDURE / Unknown 11/10/2024 3:19 PM CDT 11/11/2024 2:52 AM CDT Jh Morejon MD URINE ORDERABLES Final Re sult 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 Benign hypertension Essential hypertension, benign Tremor Abnormal involuntary movements VICTOR MANUEL (generalized anxiety disorder) Generalized anxiety disorder Chronic pain due to neoplasm Alcohol dependence in remission (CMS/HCC) Other and unspecified alcohol dependence, in remission Bradycardia Other specified cardiac dysrhythmias Diabetic polyneuropathy associated with type 2 diabetes mellitus (CMS/HCC) Other intermediate (current) drug therapy History of cancer of ureter History of bladder cancer Personal history of malignant neoplasm of bladder documented in this encounter Care Teams Horseradish Maker Relationship Specialty Start Date End Date Jh Morejon MD [address] [phone] PCP - General Family Practice 01/07/18 documented as of this encounter
[2024-11-16 20:47] VITALS: BP 137/84; PULSE 93; TEMP 36.9; O2SAT 97
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
--- OUTSIDE RECORDS SUMMARY | 2024-11-16 20:48 | XMS_ITS | Patient Health Record ---
Author Organization [facility] Address [address] [place] [address] Care Team Providers Care Health Policy Analyst Name Role Phone Robert Canales Reason For Referral No Information Plan Of Treatment No Information
--- OUTSIDE RECORDS SUMMARY | 2024-11-16 20:48 | XMS_ITS | Encounter Summary ---
Author Organization [facility] Address [address] [place] [address] Care Team Providers Care Senior Data Integration Developer Name Role Phone Jh Morejon MD Primary Care Provider [phone] [phone] Encounter Details Date Type Department Care Team (Late st Contact Info) Description 06/14/2024 Results Follow-Up [facility] [address] Marlena Nava, [address] [address] COLON CANCER SCREEN, STOOL DNA Social History Tobacco Use Types Packs/Day Years [...] on file Legal Sex Male 1:27 AM AGRICULTURE MECHANIC Gender Identity Not on file Sexual Orientation Not on file documented as of this encounter Miscellaneous Notes * Result Encounter Note - Marlena Nava FNP - 06/14/2024 1:48 PM AGRICULTURE MECHANIC Positive Cologuard noted during video visit on June 05 and referral made to general surgery. Marlena Nava NP assisting Dr. Morejon CULTURE MECHANIC documented in this encounter Plan of Treatment Upcoming Encounters Date Type Department Care Team (Late st Contact Info) Description 02/19/2025 2:40 PM CDT Office Visit [address] [place] [phone] Jh Morejon MD [address] [place] [address] 05/07/2025 3:20 PM AGRICULTURE MECHANIC Office Visit [facility] [address] [place] [phone] Jh Morejon MD [address] [place] [phone] documented as of this encounter Visit Diagnoses Not on filedocumented in this encounter Care Teams Senior Data Integration Developer Relationship Specialty Start Date End Date Jh Morejon MD [address] [place] [phone] PCP - General Family Practice 01/07/18 documented as of this encounter
--- OUTSIDE RECORDS SUMMARY | 2024-11-16 20:49 | XMS_ITS | Encounter Summary ---
Author Organization [facility] Address 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 Juhi Choi LPN, 11/10/2024 9:27 AM documented in this encounter Plan of Treatment Upcoming Encounters Date Type Department Care Team (Late st Contact Info) Description 02/19/2025 2:40 PM CDT Office Visit [address] [phone] Jh Morejon MD [address] [phone] 05/07/2025 3:20 PM DOMESTIC TECHNICIAN Office Visit [facility] [address] [place] [phone] Jh Morejon MD [address] [phone] documented as of this encounter Visit Diagnoses Not on filedocumented in this encounter Care Teams Agriscience Instructor Relationship Specialty Start Date End Date Jh Morejon MD [address] [phone] PCP - General Family Practice 01/07/18 documented as of this encounter
--- OUTSIDE RECORDS SUMMARY | 2024-11-16 20:49 | XMS_ITS | Clinical Summary ---
Author Organization Jairo Mccallum [facility] Address [address] [facility] [place] [address] Phone Care Team Providers Care Drafter Refrigeration Name Role Phone Jh Morejon MD Primary Care Provider [phone] Allergies No known active allergies Medications naloxone (NARCAN) 4 mg/spray [place], Non-Aerosol EMERGENCY USE ONLY: Administer 1 spray (4 mg) in one nostril one time. May repeat in alternating nostrils every 2-3 min until responsive or EMS arrives. 2 Each 3 022 Active mometasone (NASONEX) 50 mcg/actuation [place], Non-Aerosol Administer 2 Sprays in each nostril daily. 020 Active ondansetron (ZOFRAN) 8 mg Tablet 022 Active fluticasone propionate (FLONASE) 50 mcg/spray [place], Suspension nasal inhalerIndications :Chronic obstructive pulmonary disease, unspecified COPD type (CMS/HCC) Administer 2 Sprays in each nostril daily. 16 Gram 5 023 Active promethazine (PHENERGAN) 25 mg tabletIndications: Gastroesophageal reflux disease without esophagitis Take 0.5-1 Tablets (12.5-25 mg) by mouth every 8 hours as needed for Nausea/Emesis. 30 Tablet 5 024 Active cpap medical deviceIndications: ELMER (obstructive sleep apnea) CPAP @ auto-titrate 6-16 cwp with heated humidifier. Length of need:99 months; mask with headgear every 6 months; mask only every 3 months; cushions per month; Tubing heated 1 every 3 months, water chamber 1 every 6 months, chin strap 1 every 6 months, filters disposable 2 per month, filters reusable 1 per 6 months. 1 Each 024 Active Pramoxine-Zinc Oxide 1-5 % Cream Apply to affected area 3 times daily as needed for Other (See Comment) (Rectal pain). 28 Gram 2 024 Active Miscellaneous Medical SupplyIndications: S/P ileal conduit (CMS/HCC) Ostomy supplies, QS for 30 days: drainage bag, miller rings 3/4 th size, barrier convex, syeda flux pouch, 1/2 ring barrier that goes on the out side to seal the bag, miller barrier strips aclastic, large gloves 1 Each 11 024 Active diclofenac sodium (VOLTAREN) 1 % gel Apply 4 Grams to affected area every 12 hours as needed for Pain. 100 Gram 1 024 Active tadalafil (CIALIS) 5 mg tabletIndications: Benign prostatic hyperplasia without lower urinary tract symptoms Take 1 Tablet (5 mg) by mouth daily. 30 Tablet 5 024 Active amLODIPine (NORVASC) 5 mg tabletIndications: Benign hypertension Take 1 Tablet (5 mg) by mouth daily. 90 Tablet 3 025 Active omeprazole (PriLOSEC) 20 mg Capsule, Delayed Release(E.C.)Indic ations:Gastroesoph ageal reflux disease without esophagitis Take 1 Capsule (20 mg) by mouth daily. 90 Capsule 3 025 Active mirtazapine (REMERON) 30 mg tabletIndications: VICTOR MANUEL (generalized anxiety disorder),Mild episode of recurrent major depressive disorder Take 1 Tablet (30 mg) by mouth daily at bedtime. 90 Tablet 3 025 Active metFORMIN (GLUCOPHAGE XR) 500 mg Extended Release 24 hour tabletIndications: Type 2 diabetes mellitus with stage 3a chronic kidney disease, without long-term current use of insulin ([facility]) Take 2 Tablets (1,000 mg) by mouth 2 times daily with meals. 400 Tablet 3 025 Active fenofibrate nanocrystallized (TRICOR) 48 mg tabletIndications: Mixed hyperlipidemia Take 1 Tablet (48 mg) by mouth daily. 90 Tablet 3 025 Active atorvastatin (LIPITOR) 40 mg tabletIndications: Type 2 diabetes mellitus with stage 3a chronic kidney disease, without long-term current use of insulin (CMS/HCC),Mixed hyperlipidemia Take 1 Tablet (40 mg) by mouth daily. 100 Tablet 3 025 Active albuterol sulfate HFA 90 mcg/actuation aerosol inhalerIndications :Chronic obstructive pulmonary disease, unspecified COPD type (CMS/HCC) Take 2 Puffs by inhalation every 6 hours as needed for Respiration. 18 Gram 5 025 Active ipratropium-albute roL (DUONEB) 0.5 mg-3 mg(2.5 mg base)/3 mL Solution for NebulizationIndica tions:Chronic obstructive pulmonary disease, unspecified COPD type (CMS/HCC) Take 3 mL by inhalation every 6 hours as needed for Shortness of Breath, Wheezing or Other (See Comment) (cough). 300 mL 5 025 Active nebulizerIndicatio ns:Chronic obstructive pulmonary disease, unspecified COPD type (CMS/HCC) Length of need 99 months Nebulizer with compressor, Kit: Disposable Nebulizer Kit, 2 per month, filters , areosol mask: Yes. Name of Medication: Albuterol 1 Each 025 Active nebulizer Length of need 99 months Nebulizer with compressor, Kit: Permanent Nebulizer Kit, 1 per 6 months, filters , areosol mask: Yes. Name of Medication: albuterol 1 Each 025 Active sertraline (ZOLOFT) 100 mg tabletIndications: VICTOR MANUEL (generalized anxiety disorder),Mild episode of recurrent major depressive disorder TAKE 2 TABLETS BY MOUTH EVERY DAY 200 Tablet 2 025 Active LORazepam (ATIVAN) 1 mg tabletIndications: VICTOR MANUEL (generalized anxiety disorder) TAKE 1 TABLET BY MOUTH EVERY 8 HOURS NEEDED FOR ANXIETY. 90 Tablet 2 025 Active silver sulfADIAZINE (SILVADENE) 1 % Cream Apply to affected area daily. 85 Gram 2 025 Active pregabalin (LYRICA) 50 mg CapsuleIndications :Diabetic polyneuropathy associated with type 2 diabetes mellitus (CMS/HCC) Take 1 Capsule (50 mg) by mouth daily at bedtime. 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 Max Daily Amount: 3 Tablets 90 Tablet Active promethazine-dextr omethorphan (PHENERGAN-DM) 6.25-15 mg/5 mL syrupIndications:I nfluenza TAKE 5 ML BY MOUTH EVERY 4 HOURS NEEDED FOR COUGH 120 mL Active prochlorperazine maleate (COMPAZINE) 10 mg tablet TAKE 1 TABLET BY MOUTH EVERY 8 HOURS NEEDED FOR NAUSEA, EMESIS 90 Tablet 3 Active tiZANidine (ZANAFLEX) 4 mg Tablet TAKE 1 TABLET BY MOUTH EVERY 8 HOURS 300 Tablet 1 Active atenoloL (TENORMIN) 25 mg tabletIndications: Benign hypertension Take 1 Tablet (25 mg) by mouth daily. 90 Tablet 3 025 2024 Discontinued tiZANidine (ZANAFLEX) 4 mg Tablet Take 1 Tablet (4 mg) by mouth every 8 hours. 90 Tablet 5 025 2024 Discontinued semaglutide (Ozempic) 0.25 mg or 0.5 mg (2 mg/3 mL) Pen InjectorIndication s:Type 2 diabetes mellitus with stage 3a chronic kidney disease, without long-term current use of insulin ([facility]) Inject 0.25 mg by subcutaneous injection every 7 days. 3 mL 5 025 2024 Discontinued prochlorperazine maleate (COMPAZINE) 10 mg tablet Take 1 Tablet (10 mg) by mouth every 8 hours as needed for Nausea/Emesis. 30 Tablet 5 025 2024 Discontinued promethazine-dextr omethorphan (PHENERGAN-DM) 6.25-15 mg/5 mL syrupIndications:I nfluenza Take 5 mL by mouth every 4 hours as needed for Cough. 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 Max Daily Amount: 3 Tablets 90 Tablet 025 2024 Discontinued(R eorder) Active Problems Problem Noted Date Diagnosed Date History of cancer of ureter 11/16/2024 History of bladder cancer 11/16/2024 Alcohol dependence in remission 11/10/2024 Atherosclerosis of aorta 11/09/2023 Chronic kidney disease, stage 3a 11/09/2023 Anemia 11/09/2023 S/P ileal conduit 11/09/2023 Chronic pain due to neoplasm 02/25/2023 VICTOR MANUEL (generalized anxiety disorder) 09/05/2021 ELMER (obstructive sleep apnea) 08/03/2019 Nocturnal hypoxia 08/03/2019 ETOH abuse 08/22/2018 Tremor 08/22/2018 Gastroesophageal reflux disease without esophagi tis 07/04/2018 Benign prostatic hyperplasia without lower urinary tract symptoms 07/04/2018 Benign hypertension 07/22/2017 Type 2 diabetes mellitus wit h stage 3a chronic kidney disease, without long-term current use of insulin 07/22/2017 Hyperlipidemia 07/22/2017 Gout of multiple sites 07/08/2016 Mild episode of recurrent major depressive disor lyly 01/19/2016 Chronic bilateral low back pain with sciatica Tobacco use 11/19/2015 COPD (chronic obstructive pulmonary disease) Resolved Problems Problem Noted Date Diagnosed Date Resolved Date Malignant neoplasm 11/09/2023 Disorder involving thrombocytopenia 11/09/2023 11/10/2023 Malignant neoplasm of urinary bladder 10/16/2021 11/16/2024 Transitional cell carcinoma of ureter 10/16/2021 11/16/2024 History of bladder cancer 03/20/2019 Encounters Date Type Department Care Team Description 11/16/[address] [phone] Jh Morejon MD 11/15/[address] [phone] Jh Morejon MD 11/15/[address] [phone] Isabel Castaneda, INK TECHNICIAN Influenza 11/14/2024 External Device Data ST[facility] ABSTRACTION Provider, Abstract 11/14/2024 External Device Data [facility] ABSTRACTION Provider, Abstract 11/14/2024 External Device Data [facility] ABSTRACTION Provider, Abstract 11/10/2024 2:40 PM CDT Office Visit [address] [phone] Jh Morejon MD Medicare annual wellness visit, subsequent (Primary Dx); Panlobular emphysema ([facility]/HCC); Type 2 diabetes mellitus with stage 3a chronic kidney disease, without long-term current use of insulin ([facility]/HCC); Chronic kidney disease, stage 3a ([facility]/HCC); S/P ileal conduit ([facility]); Tobacco use; Chronic bilateral low back pain with bilateral sciatica; Mild episode of recurrent major depressive disorder; Benign hypertension; Tremor; VICTOR MANUEL (generalized anxiety disorder); Chronic pain due to neoplasm; Alcohol dependence in remission ([facility]); Bradycardia; Diabetic polyneuropathy associated with type 2 diabetes mellitus ([facility]); 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; History of cancer of ureter; History of bladder cancer 11/10/[address] [phone] Jh Morejon MD Transitional cell carcinoma of left ureter ([facility]/HCC); Chronic pain due to neoplasm 11/10/2024 Medication Prior Auth Encounter [address] [phone] Jh Morejon MD 10/23/[address] [phone] Jh Morejon MD Question 10/17/2024 Orders Only [facility] [address] [place] [address] Jh Morejon MD 10/12/2024 External Device Data [place] ABSTRACTION Provider, Abstract 10/12/2024 External Device Data [facility] ABSTRACTION Provider, Abstract 10/12/[address] [place] [address] Jh Morejon MD 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); Chronic pain due to neoplasm 10/11/2024 External Device Data [place] ABSTRACTION Provider, Abstract 10/10/2024 External Device Data [facility] ABSTRACTION Provider, Abstract 10/06/2024 Results Follow-Up [address] [place] [address] CHEST ABDOMEN PELVIS W CONT 10/05/[address] [place] [address] Jh Morejon MD Results 10/02/2024 Orders Only [address] [place] [address] Jh Morejon MD Malignant neoplasm of urinary bladder, unspecified site (CMS/HCC); 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); S/P ileal conduit ([facility]/HCC); Malignant neoplasm ([facility]/HCC) 09/19/[address] [place] [address] Jh Morejon MD Transitional cell carcinoma of left ureter ([facility]/HCC); Chronic pain due to neoplasm 09/14/[address] [place] [address] Jh Morejon MD VICTOR MANUEL (generalized anxiety disorder) 09/07/2024 3:20 PM CDT Video Visit [address] [place] [address] Jh Morejon MD Type 2 diabetes mellitus with stage 3a chronic kidney disease, without long-term current use of insulin (CMS/HCC) (Primary Dx); Malignant neoplasm of urinary bladder, unspecified site (CMS/HCC); 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); S/P ileal conduit (CMS/HCC); Malignant neoplasm (CMS/HCC); Chronic bilateral low back pain with bilateral sciatica; Chronic pain due to neoplasm 09/04/[address] [phone] Provider, Abstract 08/31/[address] [phone] Jh Morejon MD Question 08/23/2024 Results Follow-Up [address] [phone] Marlena Nava, INK TECHNICIAN CBC WITH DIFFERENTIAL, MICROALBUMIN/CREATINI NE RATIO, RANDOM UR, HEMOGLOBIN A1C, COMPREHENSIVE METABOLIC PANEL 08/22/2024 Orders Only Initial Department [address] CAMACHO: [place] [address] Provider, Historical 08/21/[address] [phone] Jh Morejon MD Transitional cell carcinoma of left ureter ([facility]/HCC); Chronic pain due to neoplasm from Last 3 Months Immunizations Immunization Administration Dates Next Due INFLUENZA VACCINE QUADRIVALENT 3 YR UP PF IM 04/2020 Influenza Seasonal Unspecified Formulation IM ,08/03/2019 Family History Medical History Relation Name Comments Other Father prostate cancer Other Mother benign brain tu mor Breast Cancer Neg Hx Colon Cancer Neg Hx Relation Name Status Comments Father Mother Social History Tobacco Use Types Packs/Day Years Used Date Smoking Tobacco: Every Day Cigarettes Smokeless Tobacco: Never Tobacco Cessation:Ready to Q uit: No; Counseling Given: Yes Alcohol Use Standard Drinks/Week Comments Yes 5 [...] on file 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 [address] [phone] Jh Morejon MD [address] [place] [address] 05/07/2025 3:20 PM TRAY LINE WORKER Office Visit [facility] [address] [place] [address] Jh Morejon MD [address] [phone] Health Maintenance Due Date Last Done Comments FIT/FOBT Q 1 YEAR (AUTO ORDER) 1975 [...] - Risk 60-74 years 1-dose series) 2017 Abdominal Aortic Aneurysm (A AA) Screening 2022 DIABETES ANNUAL RETINAL EXAM 09/05/2022 09/05/2021 COVID-19 Vaccine (2 - 2023-2 5 season) 2024 07/10/2021 FLEX SIG/CT COLONOGRAPHY Q 5 YEARS (AUTO ORDER) 03/23/2024 03/23/2019, 03/23/2019 DIABETES HBA1C Q 6 MONTHS 02/21/20252024, 03/29/2024, 10/25/2023, Additional history exists DIABETES ANNUAL FOOT EXAM 03/29/2025 03/29/2024, 03/2019 LDL CHOLESTEROL ANNUAL 03/29/2025 , 09/09/2022, 05/27/2021, Additional history exists DIABETES MICROALBUMIN ANNUAL SCREEN 08/22/2025 08/22/2024, 11/09/2023, 02/25/2023, Additional history exists DIABETES: A1C (Auto Order) 08/22/202508/22, 03/29/2024, 10/25/2023, Additional history exists Colorectal Cancer Screening (AUTO ORDER) 05/18/2027 Colorectal Cancer Screening 05/18/2027 FIT-DNA Q 3 years 05/18/2027 05/18/2024, 03/23/2019 FIT/ DNA Q 3 YEARS (AUTO ORDER) 05/18/2027 05/18/2024, 05/18/2024, 03/23/2019, Additional history exists INFLUENZA VACCINE Completed 01/28/2024, , 02/21/2021, Additional history exists KHE eGFR (Auto Order) Completed 08/22/2024 , 03/29/2024, 08/02/2023, Additional history exists KHE uACR (Auto Order) Completed 11/10/2024 , 08/22/2024, 11/09/2023, Additional history exists Medicare Advantage ([place]) Preventative Visit/Annual Wellness Visit Completed 11/10/2024, 11/09/2023, 09/09/2022 Procedures Procedure Name Priority Date/Time Associated Diagnosis Comments MEDICATION COMPLIANCE DRUG SCREEN Routine 11/10/2024 3:19 PM CDT Other snf (current) drug therapy CT CHEST ABDOMEN PELVIS W CONT Routine 09/29/2024 Malignant neoplasm of urinary bladder, unspecified site (CMS/HCC) 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) S/P ileal conduit (CMS/HCC) Malignant neoplasm (CMS/HCC) COMPREHENSIVE METABOLIC PANEL Routine 08/22/2024 1:04 PM CDT HEMOGLOBIN A1C Routine 08/22/2024 1:04 PM CDT MICROALBUMIN/CREATININ E RATIO, RANDOM UR Routine 08/22/2024 1:04 PM CDT CBC WITH DIFFERENTIAL Routine 08/22/2024 1:04 PM CDT COLON CANCER SCREEN, STOOL DNA Routine 05/18/2024 5:30 PM TRAY LINE WORKER Screening for colon cancer LIPID PANEL Routine 03/29/2024 1:59 PM TRAY LINE WORKER Type 2 diabetes mellitus with stage 3a chronic kidney disease, without long-term current use of insulin (CMS/HCC) from Last 3 Months or Most Recently Relevant to Health Maintenance Results * (ABNORMAL) MEDICATION COMPLIANCE DRUG SCREEN (11/10/2024 3:19 PM CDT) Summary [facility] Comment: Prescribed Prescribed Not Prescribed Consistent Inconsistent Inconsistent Oxycodone Xanax(TM) Prescribed Drug 1 Oxycodone [facility] Prescribed Drug 2 [facility]anax(TM) [facility] BUPRENORPHINE (URINE) NEGATIVE <5 ng/mL [facility] Fentanyl NEGATIVE <0.5 ng/mL [facility] Propoxyphene, Urine NEGATIVE <300 ng/mL [facility] MDA (Ecstasy Mtb), Urine NEGATIVE <200 ng/mL [facility] MDMA (Ecstasy), Urine NEGATIVE <200 ng/mL [facility] MDMA Comments [facility] Comment:See LDT Notes Meprobamate, Urine NEGATIVE <1000 ng/mL [facility] Carisoprodol Comments [facility] Comment:See LDT Notes Tapentadol, Urine NEGATIVE <50 ng/mL [facility] Nortapentadol, Urine NEGATIVE <50 ng/mL [facility] Tapentadol Comments [facility] Comment:See LDT Notes O-Desmethyltramado l, Urine NEGATIVE <100 ng/mL [facility] Tramadol, Urine NEGATIVE <100 ng/mL [facility] Tramadol Comments [facility] Comment:See LDT Notes Gabapentin, Urine NEGATIVE <1000 ng/mL [facility] Gabapentin Comments [facility] Comment:See LDT Notes Meperidine, Urine NEGATIVE <100 ng/mL [facility] Normeperidine, Urine NEGATIVE <100 ng/mL [facility] Meperidine Comments [facility] Comment:See LDT Notes PREGABALIN, QUANT URINE NEGATIVE <1000 ng/mL [facility] Pregabalin Comments [facility] Comment:See LDT Notes Alcohol Metabolites, Urine NEGATIVE <500 ng/mL [facility] AMPHETAMINES (URINE) NEGATIVE <500 ng/mL [facility] BARBITURATES (URINE) NEGATIVE <300 ng/mL [facility] BENZODIAZEPINES (URINE) NEGATIVE CONFIRMED <100 ng/mL [facility] Alpha-hydroxyalpra zolam, Urine NEGATIVE <25 ng/mL [facility] medMATCH aOH alprazolam, Urine INCONSISTENT( A) [facility] ALPHA-HYDROXYMIDAZ OLAM QUANT, URINE NEGATIVE <50 ng/mL [facility] Alpha-Hydroxytriaz olam, Urine NEGATIVE <50 ng/mL [facility] Aminoclonazepam, Urine NEGATIVE <25 ng/mL [facility] Hydroxyethylfluraz epam, Urine NEGATIVE <50 ng/mL [facility] Lorazepam, Urine NEGATIVE <50 ng/mL [facility] NORDIAZEPAM QUANT, URINE NEGATIVE <50 ng/mL [facility] Oxazepam, Urine NEGATIVE <50 ng/mL [facility] Temazepam, Urine NEGATIVE <50 ng/mL [facility] BENZODIAZEPINES, COMMENT [facility] Comment:See LDT Notes COCAINE & METABOLITE (URINE) NEGATIVE <150 ng/mL [facility] 6 ACETYLMORPHINE, URINE NEGATIVE <10 ng/mL [facility] CANNABINOIDS QUAL, URINE NEGATIVE <20 ng/mL [facility] Methadone Metabolite, Urine NEGATIVE <100 ng/mL [facility] OPIATE CLASS (URINE) NEGATIVE CONFIRMED <100 ng/mL [facility] Codeine, Urine NEGATIVE <50 ng/mL [facility] Hydrocodone, Urine NEGATIVE <50 ng/mL [facility] Hydromorphone, Urine NEGATIVE <50 ng/mL [facility] Morphine, Urine NEGATIVE <50 ng/mL [facility] Norhydrocodone, Urine NEGATIVE <50 ng/mL [facility] OPIATES, COMMENT Que [facility] Comment:See LDT Notes OXYCODONE CLASS (URINE) POSITIVE(A) <100 ng/mL [facility] Noroxycodone, Urine 1362(H) <50 ng/mL [facility] medMATCH Noroxycodone, Urine CONSISTENT [facility] Oxycodone, Urine 571(H) <50 ng/mL [facility] medMATCH Oxycodone, Urine CONSISTENT [facility] Oxymorphone, Urine 202(H) <50 ng/mL [facility] medMATCH Oxymorphone, Urine CONSISTENT [facility] Oxycodone Comments Q uest [facility] Comment:See Oxycodone Notes, LDT Notes PHENCYCLIDINE, URINE NEGATIVE <25 ng/mL [facility] Creatinine, Urine 82.9 > or = 20.0 mg/dL [facility] PH 8.7 4.5 - 9.0 [facility] OXIDANT, URINE NEGATIVE <200 mcg/mL [facility] ZOLPIDEM, URINE NEGATIVE <5 ng/mL [facility] Zolipidem Metabolite, Urine NEGATIVE <5 ng/mL [facility] Zolpidem Comments Qu [facility] Comment:See LDT Notes COMMENT TOXICOLOGY Q uest [facility] Comment: This drug testing is for medical [...] analytical performance characteristics have been determined by [facility]. It has not been cleared or approved by the FDA. This assay has been validated pursuant to the CLIA regulations and is used for clinical purposes. medMATCH(R) enables providers to identify if drug use is consistent or inconsistent with a corresponding prescribed medication(s) list. Healthcare Providers needing Interpretation assistance, please contact us at [phone] ( ) M-F, 8am to 10pm EST Test [facility] [address] [place] [address] Benedicto HERNANDEZ Urine URINE SPECIMEN OBTAINED BY CLEAN CATCH PROCEDURE / Unknown 11/10/2024 3:19 PM CDT 11/11/2024 2:52 AM CDT Jh Morejon MD URINE ORDERABLES Final Re sult [facility] [phone] [facility] [address] [place] [address] * CT CHEST ABDOMEN PELVIS W CONT (09/29/2024) Anatomical Region Laterality Modality Chest Computed Tomogra phy Jh Morejon MD CT ORDERABLES Final Res ult * MICROALBUMIN/CREATININE RATIO, RANDOM UR (08/22/2024 1:04 PM CDT) Creatinine, Urine 94 20 - 320 mg/dL [facility] MICROALBUMIN, URINE 1.2 See Note: mg/dL [facility] Comment: Reference Range: Reference Range Not established MICROALBUMIN/CREAT RATIO, UR 13 <30 mg/g creat [facility] Comment: The ADA defines abnormalities in albumin excretion as follows: Albuminuria Category Result (mg/g creatinine) Normal to Mildly increased <30 Moderately increased 30-299 Severely increased > OR = 300 The ADA recommends that at least two of three specimens collected within a 3-6 month period be abnormal before considering a patient to be within a diagnostic category. Test Performed at: [facility] [address] [place] [address] Alex Mooney MD 08/22/2024 1:04 PM CDT 08/22/2024 1:05 PM CDT Jh Morejon MD URINE ORDERABLES Final Re sult [facility] [phone] [facility] [place] [address] [place] [address] * CBC WITH DIFFERENTIAL (08/22/2024 1:04 PM CDT) WBC 8.1 3.8 - 10.8 Thousand/u L [facility] RBC 4.71 4.20 - 5.80 Million/uL [facility] HEMOGLOBIN 13.5 13.2 - 17.1 g/dL [facility] HEMATOCRIT 42.0 38.5 - 50.0 % [facility] MCV 89.2 80.0 - 100.0 fL [facility] MCH 28.7 27.0 - 33.0 pg [facility] MCHC 32.1 32.0 - 36.0 g/dL [facility] Comment: For adults, a slight decrease in the calculated MCHC value (in the range of 30 to 32 g/dL) is most likely not clinically significant; however, it should be interpreted with caution in correlation with other red cell parameters and the patient's clinical condition. RDW 14.3 11.0 - 15.0 % [facility] PLATELETS 194 140 - 400 Thousand/u L [facility] MPV 11.9 7.5 - 12.5 fL [facility] NEUTROPHIL ABSOLUTE 4,398 1,500 - 7,800 cells/uL [facility] LYMPHOCYTE ABSOLUTE 2,924 850 - 3,900 cells/uL [facility] MONOCYTE ABSOLUTE 462 200 - 950 cells/uL [facility] EOSINOPHIL ABSOLUTE 235 15 - 500 cells/uL [facility] BASOPHILS ABSOLUTE 81 0 - 200 cells/uL [facility] NEUTROPHIL 54.3 % [facility] LYMPHOCYTES 36.1 % [facility] MONOCYTE 5.7 % [facility] EOSINOPHILS 2.9 % [facility] BASOPHILS 1.0 % [facility] Comment: Test Performed at: [facility] [place] [address] [place] [address] Alex Mooney MD 08/22/2024 1:04 PM CDT 08/22/2024 1:05 PM CDT us hJ Morejon MD HEMATOLOGY ORDERABLES Fin al Result [facility] [phone] [facility] [place] [address] [place] [address] * (ABNORMAL) HEMOGLOBIN A1C (08/22/2024 1:04 PM CDT) Pathologist [facility] HEMOGLOBIN A1C 6.6(H) <5.7 % of total Hgb [facility] Comment: For someone without known diabetes, a hemoglobin A1c value of 6.5% or greater indicates that they may have diabetes and this should be confirmed with a follow-up test. For someone with known diabetes, a value <7% indicates that their diabetes is well controlled and a value greater than or equal to 7% indicates suboptimal control. A1c targets should be individualized based on duration of diabetes, age, comorbid conditions, and other considerations. Currently, no consensus exists regarding use of hemoglobin A1c for diagnosis of diabetes for children. Test Performed at: [facility] [address] Alex Mooney MD 08/22/2024 1:04 PM CDT 08/22/2024 1:05 PM CDT Jh Morejon MD CHEMISTRY ORDERABLES Lisa l Result [facility] [phone] [facility] [address] * (ABNORMAL) COMPREHENSIVE METABOLIC PANEL (08/22/2024 1:04 PM CDT) [facility] GLUCOSE 141(H) 65 - 99 mg/dL [facility] Comment: Fasting reference interval For someone without known diabetes, a glucose value >125 mg/dL indicates that they may have diabetes and this should be confirmed with a follow-up test. BUN 29(H) 7 - 25 mg/dL [facility] CREATININE 1.44(H) 0.70 - 1.35 mg/dL [facility] GFR 53(L) > OR = 60 mL/min/1.7 3m2 [facility] BUN/CREAT RATIO 20 6 - 22 (calc) [facility] SODIUM 138 135 - 146 mmol/L [facility] POTASSIUM 4.8 3.5 - 5.3 mmol/L [facility] CHLORIDE 110 98 - 110 mmol/L [facility] CO2 20 20 - 32 mmol/L [facility] CALCIUM 9.4 8.6 - 10.3 mg/dL [facility] TOTAL PROTEIN 7.3 6.1 - 8.1 g/dL [facility] ALBUMIN 4.9 3.6 - 5.1 g/dL [facility] GLOBULIN 2.4 1.9 - 3.7 g/dL (calc) [facility] ALBUMIN/GLOBULIN RATIO 2.0 1.0 - 2.5 (calc) [facility] BILIRUBIN TOTAL 0.5 0.2 - 1.2 mg/dL [facility] ALKALINE PHOSPHATASE 99 35 - 144 U/L [facility] AST 40(H) 10 - 35 U/L [facility] ALT 39 9 - 46 U/L [facility] Comment: Test Performed at: [facility] [id number] [place] [phone] Alex Mooney MD 08/22/2024 1:04 PM CDT 08/22/2024 1:05 PM CDT Jh Morejon MD CHEMISTRY ORDERABLES Lisa l Result [facility] [phone] [facility] [place] [address] [place] [address] * (ABNORMAL) COLON CANCER SCREEN, STOOL DNA (05/18/2024 5:30 PM TRAY LINE WORKER) COLOGUARD RESULT Positive( A) Negative [facility] Comment: POSITIVE TEST RESULT. A positive Cologuard result should be followed with a colonoscopy or visual examination of the colon. The normal value (reference range) for this assay is negative. TEST DESCRIPTION: Composite algorithmic analysis of stool DNA-biomarkers with hemoglobin immunoassay. Quantitative values of individual biomarkers are not reportable and are not associated with individual biomarker result reference ranges. Cologuard is intended for colorectal cancer screening of adults of either sex, 45 years or older, who are at average-risk for colorectal cancer (CRC). Cologuard has been approved for use by the U.S. FDA. The performance of Cologuard was established in a cross sectional study of average-risk adults aged 50-84. Cologuard performance in patients ages 45 to 49 years was estimated by sub-group analysis of near-age groups. Colonoscopies performed for a positive result may find as the most clinically significant lesion: colorectal cancer [4.0%], advanced adenoma (including sessile serrated polyps greater than or equal to 1cm diameter) [20%] or non- advanced adenoma [31%]; or no colorectal neoplasia [45%]. These estimates are derived from a prospective cross-sectional screening study of 10,000 individuals at average risk for colorectal cancer who were screened with both Cologuard and colonoscopy. (Prachi Mendez. et al, N Engl J Med 2014;370(14):1870-6083.) Cologuard may produce a false negative or false positive result (no colorectal cancer or precancerous polyp present at colonoscopy follow up). A negative Cologuard test result does not guarantee the absence of CRC or advanced adenoma (pre-cancer). The current Cologuard screening interval is every 3 years. ([place] [employer] and U.S. Multi-Society Task Force). Cologuard performance data in a 10,000 patient pivotal study using colonoscopy as the reference method can be accessed at the following location: www.FinancialForce.com/results. Additional description of the Cologuard test process, warnings and precautions can be found at www.Mantis Digital Artsrd.com. Stool STOOL SPECIMEN / Unknown 05/18/2024 5:30 PM TRAY LINE WORKER 05/19/2024 5:15 PM TRAY LINE WORKER us Sury Villagomez INK TECHNICIAN BODY FLUIDS AND STOOLS Lisa pfeiffer Result [facility] CLIA # [id number] [address] , [address] [place] [address] * (ABNORMAL) LIPID PANEL (03/29/2024 1:59 PM TRAY LINE WORKER) CHOLESTEROL 118 <200 mg/dL [facility] HDL 39(L) > OR = 40 mg/dL [facility] TRIGLYCERIDE 171(H) <150 mg/dL [facility] LDL CALCULATED 54 mg/dL (calc) [facility] Comment: Reference range: <100 Desirable range <100 mg/dL for primary prevention; <70 mg/dL for patients with CHD or diabetic patients with > or = 2 CHD risk factors. LDL-C is now calculated using the Ashley calculation, which is a validated novel method providing better accuracy than the Friedewald equation in the estimation of LDL-C. Damion SS et al. DANNIELLE. 2013;310(19): 8912-2170 (http://education.Octopusapp/faq/TKN969) CHOL/HDL RATIO 3.0 <5.0 (calc) [facility] NON-HDL CHOLESTEROL 79 <130 mg/dL (calc) [facility] Comment: For patients with diabetes plus 1 major ASCVD risk factor, treating to a non-HDL-C goal of <100 mg/dL (LDL-C of <70 mg/dL) is considered a therapeutic option. Test Performed at: [facility] [id number] [place] [phone] Alex Mooney MD Blood 03/29/2024 1:59 PM TRAY LINE WORKER 03/30/2024 6:14 AM TRAY LINE WORKER Jh Morejon MD CHEMISTRY ORDERABLES Lisa l Result [facility] [phone] [facility] [place] [address] [place] [phone] from Last 3 Months or Most Recently Relevant to Health Maintenance Insurance [facility] MEDICARE HMO Advance Directives For more information, please contact: [phone] * Full Code (Latest Code Status on File) Date Activated Date Inactivated Comments 11/10/2024 2:58 PM Care Teams Drafter Refrigeration Relationship Specialty Start Date End Date Jh Morejon MD [address] [phone] PCP - General Family Practice 01/07/18
--- OUTSIDE RECORDS SUMMARY | 2024-11-16 20:49 | XMS_ITS | Encounter Summary ---
Author Organization [facility] Address 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 Gender Identity Not on file Sexual Orientation Not on file documented as of this encounter Miscellaneous Notes * Telephone Encounter - Meme BairdEMMANUEL - 11/10/2024 4:27 PM CDT 4:27 PM 11/10/2024 Date of last visit addressing condition(s) being treated: 11-10-24 Date of next visit in this department: 02/19/2025 Correct Pharmacy: Yes Last refill: 10-12-24 Quantity: 90 Recent Visits Date Type Provider Dept 09/07/24 Video Visit Jh Morejon MD [facility] [place] 07/05/24 Video Visit Isabel Castaneda, [facility] [place] 06/05/24 Video Visit Jh Morejon MD [facility] [place] 06/01/24 Video Visit Denise Vigil, [facility] [place] [address] 03/29/24 Office Visit Anna Bernal, [facility] [place] 01/28/24 Video Visit Amy Panda, [facility] [place] 11/09/23 Office Visit Jh Morejon MD [facility] Showing recent visits within past 400 days with a meds authorizing provider and meeting all other requirements Today's Visits Date Type Provider Dept 11/10/24 Office Visit Jh Morejon MD [facility] [place] Showing today's visits with a meds authorizing provider and meeting all other requirements Future Appointments Date Type Provider Dept 02/19/25 Appointment Jh Morejon MD [facility] [place] 05/07/25 Appointment Jh Morejon MD [facility] Showing future appointments within next 400 days with a meds authorizing provider and meeting all other requirements Check and review of the [place] PDMP performed on 11/10/2024 at 4:28 PM.. No suspicious activity found. Meme BENITEZ * Telephone Encounter - Leesa Vuong - 11/10/2024 4:24 PM CDT Copied from [facility] #[id number]. Topic: Medication Request >> Nov 10, 2024 4:22 PM Leesa Jordan wrote: Caller Name: Shavon-Spouse (patient gave verbal approval to speak to) Callback Number: [phone] Medication (Ask patient/caregiver to spell if possible): oxyCODONE-acetaminophen (PERCOCET) 10-325 mg [id number] Hytakc6010/12/2024- Sig: Take 1 Tablet by mouth every 8 hours as needed for Pain, Severe. Max Daily Amount: 3 Tablets Class: E-Prescribe Route: Oral Note: All medication prescriptions can be requested using one CRM Preferred Pharmacy: [facility]/pharmacy #[id number] - [place] [id number] [place] [id number] [address] Hours: M-F 6629-7081 Sat 0582-0966 Sun closed Call Notes: Requesting refill Did caller contact the correct clinic for prescribing provider? Yes Ask caller if the refill is for a controlled medication. Is this for a controlled Medication? Yes Is there an encounter open? 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
--- OUTSIDE RECORDS SUMMARY | 2024-11-16 20:49 | XMS_ITS | Encounter Summary ---
Author Organization [facility] Address 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 Gender Identity Not on file Sexual Orientation Not on file documented as of this encounter Plan of Treatment Upcoming Encounters Date Type Department Care Team (Late st Contact Info) Description 02/19/2025 2:40 PM CDT Office Visit [facility] [address] [phone] Jh Morejon MD [address] [phone] 05/07/2025 3:20 PM DAIRY PROCESSING SUPERVISOR Office Visit [facility] [address] [place] [phone] Jh Morejon MD [address] [phone] documented as of this encounter Visit Diagnoses Diagnosis Influenza Influenza with other respiratory manifestations documented in this encounter Care Teams Production Foreman Relationship Specialty Start Date End Date Jh Morejon MD [address] [phone] PCP - General Family Practice 01/07/18 documented as of this encounter
--- OUTSIDE RECORDS SUMMARY | 2024-11-16 20:49 | XMS_ITS | Encounter Summary ---
Author Organization [facility] Address 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 Gender Identity Not on file Sexual Orientation Not on file documented as of this encounter Plan of Treatment Upcoming Encounters Date Type Department Care Team (Late st Contact Info) Description 02/19/2025 2:40 PM CDT Office Visit [facility] [address] [phone] Jh Morejon MD [address] [address] 05/07/2025 3:20 PM COMMERCIAL REPRESENTATIVE Office Visit [facility] [address] [phone] Jh Morejon MD [address] [phone] documented as of this encounter Visit Diagnoses Not on filedocumented in this encounter Care Teams Cereal Supervisor Relationship Specialty Start Date End Date Jh Morejon MD [address] [phone] PCP - General Family Practice 01/07/18 documented as of this encounter
--- OUTSIDE RECORDS SUMMARY | 2024-11-16 20:49 | XMS_ITS | Encounter Summary ---
Author Organization [facility] Address 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 Gender Identity Not on file Sexual Orientation Not on file documented as of this encounter Plan of Treatment Upcoming Encounters Date Type Department Care Team (Late st Contact Info) Description 02/19/2025 2:40 PM CDT Office Visit [facility] [address] [place] [address] Jh Morejon MD [address] [place] [address] 05/07/2025 3:20 PM HAND PATCHER Office Visit [facility] [address] [place] [address] Jh Morejon MD [address] [place] [address] documented as of this encounter Visit Diagnoses Not on filedocumented in this encounter Care Teams Oil Heater Installer Relationship Specialty Start Date End Date Jh Morejon MD [address] [place] [address] PCP - General Family Practice 01/07/18 documented as of this encounter
--- OUTSIDE RECORDS SUMMARY | 2024-11-16 20:49 | XMS_ITS | Encounter Summary ---
Author Organization [facility] Address 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 Gender Identity Not on file Sexual Orientation Not on file documented as of this encounter Plan of Treatment Upcoming Encounters Date Type Department Care Team (Late st Contact Info) Description 02/19/2025 2:40 PM CDT [facility] [address] [phone] Jh Morejon MD [address] [phone] 05/07/2025 3:20 PM CENTRAL OFFICE REPAIRER SUPERVISOR [facility] [address] [phone] Jh Morejon MD [address] [phone] documented as of this encounter Visit Diagnoses Not on filedocumented in this encounter Care Teams Gate Watch Relationship Specialty Start Date End Date Jh Morejon MD [address] [phone] PCP - General Family Practice 01/07/18 documented as of this encounter
--- OUTSIDE RECORDS SUMMARY | 2024-11-16 20:49 | XMS_ITS | Encounter Summary ---
Author Organization [facility] Address 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 TESTING ANALYST Gender Identity Not on file Sexual Orientation Not on file documented as of this encounter Plan of Treatment Upcoming Encounters Date Type Department Care Team (Late st Contact Info) Description 02/19/2025 2:40 PM CDT Office Visit [facility] [address] [place] [address] Jh Morejon MD [address] [place] [address] 05/07/2025 3:20 PM COMPLIANCE TESTING ANALYST Office Visit [facility] [address] [place] [address] Jh Morejon MD [address] [place] [address] documented as of this encounter Visit Diagnoses Not on filedocumented in this encounter Care Teams Postal Worker Relationship Specialty Start Date End Date Jh Morejon MD [address] [place] [phone] PCP - General Family Practice 01/07/18 documented as of this encounter
--- OUTSIDE RECORDS SUMMARY | 2024-11-16 20:49 | XMS_ITS | Encounter Summary ---
Author Organization [facility] Address 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 Gender Identity Not on file Sexual Orientation Not on file documented as of this encounter Plan of Treatment Upcoming Encounters Date Type Department Care Team (Late st Contact Info) Description 02/19/2025 2:40 PM CDT Office Visit [facility] [address] [place] [address] Jh Morejon MD [address] [place] [address] 05/07/2025 3:20 PM AUDIT MACHINE OPERATOR Office Visit [facility] [address] [place] [address] Jh Morejon MD [address] [place] [phone] documented as of this encounter Visit Diagnoses Not on filedocumented in this encounter Care Teams Warper Fixer Relationship Specialty Start Date End Date Jh Morejon MD [address] [place] [phone] PCP - General Family Practice 01/07/18 documented as of this encounter
--- NOTE | 2024-11-16 22:59 | CTR_ITS ---
PROCEDURE INFORMATION: Exam: CT Cervical Spine Without Contrast Exam date and time: 11/16/2024 11:12 PM Age: 69 years old Clinical indication: Injury or trauma; Fall; Blunt trauma; Additional info: Fall, neck pain TECHNIQUE: Imaging protocol: Computed tomography of the cervical spine without contrast. Radiation optimization: All CT scans at this facility use at least one of these dose optimization techniques: automated exposure control; mA and/or kV adjustment per patient size (includes targeted exams where dose is matched to clinical indication); or iterative reconstruction. COMPARISON: CT chest abdpel w/*[id number] 09/29/2024 1:32 PM RADIATION DOSE METRICS: Total DLP (mGy-cm): 514 FINDINGS: Bones: No acute fracture of the cervical spine. Grossly normal alignment. Multilevel degenerative change including bulky anterior osteophytosis and mild dorsal spondylosis. Spondylosis is greatest at C5-C6 and C6-C7 but no severe spinal canal stenosis. Multilevel facet arthropathy bilaterally. Lungs: Lung apices are unremarkable. Soft tissues: Unremarkable. CT/CT cervical spin wo con* [id number] IMPRESSION: No acute trauma to the cervical spine is identified.
--- NOTE | 2024-11-16 22:59 | CTR_ITS ---
PROCEDURE INFORMATION: Exam: CT Head Without Contrast Exam date and time: 11/16/2024 11:12 PM Age: 69 years old Clinical indication: Injury or trauma; Fall; Blunt trauma (contusions or hematomas); Consciousness not specified; Additional info: Fall, head pain TECHNIQUE: Imaging protocol: Computed tomography of the head without contrast. Radiation optimization: All CT scans at this facility use at least one of these dose optimization techniques: automated exposure control; mA and/or kV adjustment per patient size (includes targeted exams where dose is matched to clinical indication); or iterative reconstruction. COMPARISON: CT cervical spin wo con* [id number] 11/16/2024 11:12 PM RADIATION DOSE METRICS: Total DLP (mGy-cm): 1204 FINDINGS: Brain: No acute infarction, hemorrhage, mass, or extra-axial fluid collection is identified. No midline shift. Mild generalized senescent change. Cerebral ventricles: No hydrocephalus. Paranasal sinuses: Mucosal thickening of the paranasal sinuses. No air-fluid levels. Mastoid air cells: Mastoid air cells are grossly clear. Bones: Calvarium appears intact. Slight irregularity of the left zygomatic bone, age indeterminate given lack of prior imaging for comparison but appears likely to be chronic. Soft tissues: Unremarkable. CT/CT head wo con* [id number] IMPRESSION: No acute intracranial abnormality.
--- NOTE | 2024-11-16 22:59 | CTR_ITS ---
PROCEDURE INFORMATION: Exam: CT Chest Without Contrast; Diagnostic Exam date and time: 11/16/2024 11:16 PM Age: 69 years old Clinical indication: Injury or trauma; Fall; Blunt; Abdominal wall; Crushing; Prior surgery; Surgery date: 6+ months; Surgery type: Transurethral destruction of bladder; HX bladder CA; Additional info: Fall, low back pain, left rib pain TECHNIQUE: Imaging protocol: Diagnostic computed tomography of the chest without contrast. Radiation optimization: All CT scans at this facility use at least one of these dose optimization techniques: automated exposure control; mA and/or kV adjustment per patient size (includes targeted exams where dose is matched to clinical indication); or iterative reconstruction. COMPARISON: CT chest abdpel w/*[id number] 09/29/2024 1:32 PM RADIATION DOSE METRICS: Total DLP (mGy-cm): 592 FINDINGS: Lungs: No significant or acute abnormality. No consolidation. Pleural spaces: No pleural effusion. No pneumothorax. Heart: Heart and mediastinal structures appear intact. Heart size is normal. Coronary arteries: No coronary artery calcifications demonstrated. Lymph nodes: No enlarged lymph nodes. Vasculature: Mild atherosclerotic tortuosity of the thoracic aorta. No aortic aneurysm. Bones/joints: No acute osseous abnormality. Multiple old left rib fractures. 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 Soft tissues: No significant soft tissue abnormalities. PROCEDURE INFORMATION: Exam: CT Abdomen And Pelvis Without Contrast Exam date and time: 11/16/2024 11:16 PM Age: 69 years old Clinical indication: Injury or trauma; Fall; Blunt; Abdominal wall; Crushing; Prior surgery; Surgery date: 6+ months; Surgery type: Transurethral destruction of bladder; HX bladder CA; Additional info: Fall, low back pain, left rib pain TECHNIQUE: Imaging protocol: Computed tomography of the abdomen and pelvis without contrast. Radiation optimization: All CT scans at this facility use at least one of these dose optimization techniques: automated exposure control; mA and/or kV adjustment per patient size (includes targeted exams where dose is matched to clinical indication); or iterative reconstruction. COMPARISON: CT chest abdpel w/*[id number] 09/29/2024 1:32 PM RADIATION DOSE METRICS: Total DLP (mGy-cm): 867.8 FINDINGS: Liver: No acute abnormality on noncontrast imaging. Liver appears intact. Prominent liver measuring 23 cm in length. Gallbladder and biliary ducts: No acute abnormality. No calcified stones. No ductal dilation. Pancreas: No acute abnormality. No ductal dilation. Spleen: No acute abnormality. Spleen appears intact. Prominent spleen measuring 19.5 cm in length. Adrenal glands: Stable small circumscribed 1.4 x 1.6 cm left adrenal nodule with low-attenuation suggestive of incidental adrenal adenoma. Kidneys and ureters: Previous left nephrectomy. Previous right ureteral diversion with ileal conduit and right mid abdomen urostomy. Right kidney appears intact. Small right renal vascular calcifications. No obstructing calculi. No hydronephrosis. Stomach and bowel: Mid abdominal small bowel anastomosis. No significant large or small bowel distention. No evidence of diverticulitis. Appendix: No findings to suggest acute appendicitis. Intraperitoneal space: No significant fluid collection. No free air. Vasculature: Atherosclerotic vascular calcification. No aortic aneurysm. Lymph nodes: Small nonspecific periportal and portacaval lymph nodes. Urinary bladder: Previous cystectomy. Reproductive: Previous prostatectomy. Bones/joints: No acute osseous abnormality. Multilevel spondylosis and lower lumbar degenerative changes. Soft tissues: No significant soft tissue abnormalities. CT/[place] [id number] IMPRESSION: No evidence of acute traumatic injury. IMPRESSION: 1. No evidence of traumatic visceral injury. 2. Previous left nephrectomy, cystectomy and prostatectomy with right ureteral diversion, ileal conduit and right mid abdomen urostomy. 3. Hepatosplenomegaly.
[2024-11-16 23:04] VITALS: BP 138/76; PULSE 64; O2SAT 96
--- NOTE | 2024-11-16 23:06 | ECG_ITS ---
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
[2024-11-16 23:36] VITALS: RESP 18
[2024-11-16] MEDS: oxyCODONE-APAP 10-325 mg Tablet 1 TAB PO (23:36)
[2024-11-17 00:49] VITALS: BP 122/70; PULSE 60; O2SAT 95
[2024-11-17 02:15] VITALS: BP 130/70; PULSE 54; O2SAT 96
[2024-11-17 03:20] VITALS: BP 134/70; PULSE 62; O2SAT 94
--- NOTE | 2024-11-17 19:03 | W.ED.FALL ---
HPI - Fall General: Chief Complaint: Fall Stated Complaint: fall, hit back of head, tailbone, flat of back Time Seen by Provider: 11/16/24 22:51 History of Present Illness: Patient presents after a fall in which he slipped on water, landed on his back, and struck his head on a curb. He reports lower back pain as the most severe symptom, with associated numbness in both pinky fingers. He denies current nausea or vomiting but was thought to be nauseated earlier. No active bleeding or obvious fractures were noted. The patient is able to move his neck without difficulty. There is a history of heart problems, with recent medication changes resulting in an increased heart rate from 45 to 81. The patient has an ostomy, reportedly due to prior cancer, and there is mention of blood in the kidney and urethra. No recent chest pain, illness, or changes in eating/drinking habits were reported. The patient rates his pain as significant and requests pain medication. Related Data Home Medications ?Medication ?Instructions ?Recorded ?Confirmed alprazolam 0.5 mg tablet 0.5 mg PO DAILY PRN Anxiety 08/08/19 09/25/21 atenolol 25 mg tablet 25 mg PO DAILY 08/08/19 09/25/21 atorvastatin 40 mg tablet 40 mg PO DAILY 08/08/19 09/25/21 metformin 500 mg tablet 500 mg PO DAILY 08/08/19 09/25/21 omeprazole 20 mg capsule,delayed 20 mg PO DAILY 08/08/19 09/25/21 release tamsulosin 0.4 mg capsule 0.4 mg PO BID 08/08/19 09/25/21 albuterol sulfate 90 mcg/actuation 2 puff inhalation Q6H PRN 08/21/20 09/25/21 aerosol inhaler (ProAir HFA) shortness of breath mirtazapine 7.5 mg tablet 7.5 mg PO DAILY 08/21/20 09/25/21 sertraline 100 mg tablet 100 mg PO BID 08/21/20 09/25/21 ciprofloxacin HCl 500 mg tablet 500 mg PO BID 09/08/21 09/25/21 (Cipro) Previous Rx's ?Medication ?Instructions ?Recorded sulfamethoxazole 800 1 tab PO BID #20 tabs 09/08/21 mg-trimethoprim 160 mg tablet hydrocodone 5 mg-acetaminophen 325 1 tab PO Q6H PRN Renal colic 4 09/11/ mg tablet days #16 tabs hydrocodone 5 mg-acetaminophen 325 1 tab PO Q8H PRN pain #10 tabs 02/21/23 mg tablet methylprednisolone 4 mg tablets in See Rx Instructions PO .COMPLEX 02/21/23 a dose pack (Medrol (Driss)) #21 ea Allergies Allergy/AdvReac Type Severity Reaction Status Date / Time No Known Allergies Allergy Verified 11/16/24 20:54 PFSH ED PFSH: Medical History ED (erectile dysfunction) Malignant neoplasm of overlapping sites of bladder Testicular dysfunction Type 2 diabetes mellitus without complications Surgical History H/O transurethral destruction of bladder lesion Family History Family/Other Cancer CAD (coronary artery disease) Mother , at age 63 Brain tumor Father , at age 83 No problems noted. Social History Smoking and tobacco/nicotine status: current every day tobacco/nicotine user Alcohol intake: current Alcohol intake frequency: few times a month Substance/Drug Use: unknown Adopted: No Caregiver/support person: No Lives independently: No Household members: spouse Marital status: Current occupational status: disabled Current gender identity: Male Physical Exam Const: COMMON NORMALS: no acute distress, patient oriented x3 and alert HENMT: COMMON NORMALS: normocephalic and atraumatic HEAD & SCALP: normocephalic and atraumatic Eye: COMMON NORMALS: Equal, round and reactive pupils present, EOMs intact bilaterally and no scleral icterus PUPIL: Yes Equal, round and reactive pupils present Neck/C-Spine: OTHER: No midline tenderness. Full range of motion of the neck with no increase in pain Resp: COMMON NORMALS: normal respiratory effort and No retractions Cardio: COMMON NORMALS: regular rate, regular rhythm and No murmurs present (Cardio) RATE: regular rate RHYTHM: regular rhythm GI: COMMON NORMALS: Normal to inspection, nondistended, normoactive bowel sounds present, Soft to palpation and non-tender PALPATION: Yes Soft to palpation Back/Pelvis: OTHER: no obvious step-off or deformity of the thoracic or lumbar spine. Able to stand and walk. Some pain with motion of the lumbar spine. Neuro: COMMON NORMALS: patient oriented x3 SENSORIUM/ORIENTATION: Yes alert Skin: COMMON NORMALS: no rashes or lesions noted GENERAL SKIN EXAM: no rashes or lesions noted Course Vital Signs: Vital signs: Vital Signs Temperature 98.5 F 11/16/24 20:47 Pulse Rate 62 11/17/24 03:20 Respiratory Rate 18 11/16/24 23:36 Blood Pressure 134/70 11/17/24 03:20 Pulse Oximetry 94 11/17/24 03:20 Oxygen Delivery Me thod Room Air 11/17/24 02:15 MDM - Fall Medical Decision Making In summary, patient is a generally well-appearing 69-year-old male seen for fall. He slipped on water and fell, first landing on his buttocks and then falling backwards to his back. Fortunately, CT head, neck, chest and pelvis showed nothing acute. He is still ambulatory. I suspect mostly muscle contusion as the cause of his pain. He will be discharged home in stable and improved condition with a short course of pain medication follow-up to primary care as needed Lab Data Radiology Impressions Cervical Spine CT 11/16/24 22:59 IMPRESSION: No acute trauma to the cervical spine is identified. Chest/Abdomen/Pelvis CT 11/16/24 22:59 IMPRESSION: No evidence of acute traumatic injury. IMPRESSION: 1. No evidence of traumatic visceral injury. 2. Previous left nephrectomy, cystectomy and prostatectomy with right ureteral diversion, ileal conduit and right mid abdomen urostomy. 3. Hepatosplenomegaly. Head CT 11/16/24 22:59 IMPRESSION: No acute intracranial abnormality. All radiology interpretation(s) finalized by discharge Discharge Plan Discharge Patient Disposition: Home Clinical Impression: Fall Condition: Stable Prescriptions: No Action tamsulosin 0.4 mg capsule 0.4 mg PO BID atorvastatin 40 mg tablet 40 mg PO DAILY omeprazole 20 mg capsule,delayed release(DR/EC) 20 mg PO DAILY alprazolam 0.5 mg tablet 0.5 mg PO DAILY PRN (Reason: Anxiety) metformin 500 mg tablet 500 mg PO DAILY atenolol 25 mg tablet 25 mg PO DAILY sertraline 100 mg tablet 100 mg PO BID ciprofloxacin HCl [Cipro] 500 mg tablet 500 mg PO BID sulfamethoxazole-trimethoprim 800-160 mg tablet 1 tab PO BID Qty: 20 1RF mirtazapine 7.5 mg tablet 7.5 mg PO DAILY albuterol sulfate [ProAir HFA] 90 mcg/actuation HFA aerosol inhaler 2 puff inhalation Q6H PRN (Reason: shortness of breath) hydrocodone-acetaminophen 5-325 mg tablet 1 tab PO Q6H PRN (Reason: Renal colic) 4 Days Qty: 16 0RF hydrocodone-acetaminophen 5-325 mg tablet 1 tab PO Q8H PRN (Reason: pain) Qty: 10 0RF Medrol (Driss) 4 mg tablets,dose pack See Rx Instructions .ROUTE .COMPLEX Qty: 21 0RF Rx Instructions: orally per package directions Discharge Orders: Discharge ED (Routine); Ordered 11/17/24 Ordered By: Jh Jacobs Referrals: Jh Morejon [Primary Care Provider, Family Practice] Discharge Diet: Usual diet Discharge Activity: Increase activity as tolerated Patient Instructions: Patient Portal & Danit[facility] Instructions, Fall Prevention Activity Restrictions/Additional Instructions: CT scan of the head, neck, chest abdomen pelvis including the thoracic and lumbar spine and show no evidence of new fracture or dislocation or traumatic injury requiring hospitalization, surgical intervention, or change of medications. 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
== END 2024-11-17 03:35 | disposition home or self-care (01) ==
PROVIDERS: Emergency Provider Student in an Organized Health Care Education/Training Program; PCP Family Medicine
DX: M54.50 Low back pain, unspecified (principal); R20.0 Anesthesia of skin; Z79.84 Long term (current) use of oral hypoglycemic drugs; W19.XXXA Unspecified fall, initial encounter; Z72.0 Tobacco use; E11.9 Type 2 diabetes mellitus without complications; Z85.51 Personal history of malignant neoplasm of bladder; M54.2 Cervicalgia; R51.9 Headache, unspecified
CPT/HCPCS: 70450; 71250; 72125; 74176; 93005; 99284; J9999

== ENCOUNTER 2025-01-24 08:42 | Outpatient (CLI) | payer MEDICARE, SELFPAY ==
--- NOTE | 2025-01-24 08:46 | CTR_ITS ---
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 Radiation optimization: All CT scans at this facility use at least one of these dose optimization techniques: automated exposure control; mA and/or kV adjustment per patient size (includes targeted exams where dose is matched to clinical indication); or iterative reconstruction. Contrast material: OMNI 350; Contrast volume: 100 ml; Contrast route: INTRAVENOUS (IV); [facility] [place] [id number] 11/16/2024 11:16 PM RADIATION DOSE METRICS: Total DLP (mGy-cm): 1322.66 FINDINGS: Lungs: Unremarkable. No consolidation. No masses. Pleural spaces: Unremarkable. No pneumothorax. No pleural effusion. Heart: Unremarkable. No cardiomegaly. No pericardial effusion. Coronary arteries: There are no coronary artery calcifications identified. Lymph nodes: Unremarkable. No enlarged lymph nodes. Vasculature: Unremarkable. No aortic aneurysm. Bones/joints: Old ununited fractures of the left 8th through 10th ribs posteriorly are present. 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 Soft tissues: Remote herniation of the left lower chest laterally is noted. 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 Radiation optimization: All CT scans at this facility use at least one of these dose optimization techniques: automated exposure control; mA and/or kV adjustment per patient size (includes targeted exams where dose is matched to clinical indication); or iterative reconstruction. Contrast material: OMNI 350; Contrast volume: 100 ml; Contrast route: INTRAVENOUS (IV); COMPARISON: [place] [place] [id number] 11/16/2024 11:16 PM RADIATION DOSE METRICS: Total DLP (mGy-cm): 1322.66 FINDINGS: Lungs: Visualized portions of the lungs are clear. No effusions. Liver: Unremarkable. No mass. Gallbladder and biliary ducts: Normal. No calcified stones. No ductal dilation. Pancreas: Normal. No ductal dilation. Spleen: The spleen appears enlarged. Adrenal glands: There is a 1.7 cm left adrenal mass which is stable. Right adrenal gland is normal in appearance. Kidneys and ureters: There are postop changes of left nephrectomy and cystectomy. There is a nonobstructing 0.7 cm calculus in the right kidney. It may be vascular. There is an ileal conduit in the right lower quadrant with ostomy in the right mid abdomen. Stomach and bowel: Normal without evidence of obstruction. Appendix: No evidence of appendicitis. Intraperitoneal space: Unremarkable. No free air. No significant fluid collection. Vasculature: There is mild atherosclerotic change of the aorta and branch vessels. Lymph nodes: Unremarkable. No enlarged lymph nodes. Urinary bladder: Surgically absent. Reproductive: Postop changes of prostatectomy is present. Bones/joints: There are mild degenerative changes of the bony structures with disc space narrowing especially at L4-L5 and L5-S1. No lytic or blastic lesions are identified. Soft tissues: Unremarkable. CT/CT chest abdpel w/*[id number] IMPRESSION: 1. Old rib fractures 2. No evidence of metastatic disease. IMPRESSION: 1. Status post left nephrectomy, cystectomy, prostatectomy, ileal conduit and urostomy. No evidence for recurrent or metastatic disease. 2. Stable left adrenal mass. 3. Splenomegaly.
[2025-01-24 10:08] LABS: Blood Urea Nitrogen 18 mg/dL (8-23)
[2025-01-24] MEDS: iohexol 350 mg/mL 500 mL Btl (per mL) IV (10:14)
== END 2025-01-24 08:43 | disposition home or self-care (01) ==
LOC: RAD 08:43
PROVIDERS: Radiology Diagnostic Radiology; PCP Family Medicine; Visit Provider Family Medicine
DX: C66.2 Malignant neoplasm of left ureter (principal); C67.9 Malignant neoplasm of bladder, unspecified; E27.9 Disorder of adrenal gland, unspecified
CPT/HCPCS: 71260; 74177; 82565; 84520

== ENCOUNTER 2025-02-19 10:41 | Outpatient (CLI) | payer MEDICARE, SELFPAY ==
--- NOTE | 2025-02-19 10:50 | MR_ITS ---
WS: [id number] MRI RIGHT SHOULDER NONCONTRAST TECHNIQUE: Sagittal T2, coronal T1, T2 and proton density imaging. Axial gradient PDE imaging. CLINICAL INFORMATION: ACUTE PAIN OF R SHOULDER COMPARISON: None. FINDINGS: Moderate to advanced arthritis AC joint. Subacromial spurring. Mild downsloping acromion. Impingement on the underlying supraspinatus. Tendinopathy supraspinatus. Tendinopathy infraspinatus. Normal teres minor. Tendinopathy with chronic thinning of the subscapularis tendon. Chronic tear of the transverse humeral ligament with medial subluxation of the biceps tendon along the proximal bicipital groove. Diminutive biceps tendon may be due to prior tear. Tendinopathy with somewhat diminutive intra-articular biceps tendon may be due to prior tear. Degenerative fraying of the glenoid labrum. Moderate degenerative narrowing of the glenohumeral articulation. MR/MR shoulder RT wo con* [id number] IMPRESSION: 1. Moderate to advanced arthritis AC joint. 2. Tendinopathy supraspinatus and infraspinatus. 3. Tendinopathy with chronic thinning of the subscapularis tendon with chronic tear of the transverse humeral ligament. 4. Medial subluxation of the proximal biceps tendon along the bicipital groove which is diminutive and likely due to prior partial tear. 5. Diminutive intra-articular biceps tendon with increased T2 signal likely du e to prior chronic partial tear with tendinopathy.
--- NOTE | 2025-02-19 10:50 | MR_ITS ---
WS: [id number] MRI LEFT KNEE NONCONTRAST TECHNIQUE: Axial PD, coronal PD fat sat, coronal PD, sagittal PD, and sagittal PD fat-sat images obtained. CLINICAL INFORMATION: ACUTE PAIN OF LEFT KNEE COMPARISON: None. FINDINGS: Susceptibility artifact overlying the anterolateral patella from metallic foreign body in the anterior soft tissues. Tiny sliver radio opaque foreign body seen on the prior radiograph near this location of unknown etiology Distal quadriceps and patella tendons are intact. Normal ACL and PCL. Moderate tricompartmental arthritis. Medial and lateral meniscus appear intact. No acute appearing meniscal tears. Medial and lateral collateral ligaments appear intact. Normal popliteus. Tiny lobulated popliteal cyst measuring 12 mm. Small ganglion cysts about the fibular head. Normal bone marrow signal in the fibula head. Moderate chondromalacia patella. No other acute findings. MR/MR knee LT wo con* [id number] IMPRESSION: 1. Moderate tricompartmental arthritis. 2. ACL and PCL appear intact. 3. No acute appearing meniscal tears. 4. Medial and lateral collateral ligaments appear intact. 5. 12 mm tiny popliteal cyst. 6. Moderate chondromalacia patella. Outbridge grading: grade II: blister-like swelling/fraying of articular cartila ge extending to surface
== END 2025-02-19 10:42 | disposition home or self-care (01) ==
LOC: RAD 10:44
PROVIDERS: PCP Family Medicine; Visit Provider Nurse Practitioner Family
DX: M25.562 Pain in left knee (principal); M19.011 Primary osteoarthritis, right shoulder; M71.22 Synovial cyst of popliteal space [Baker], left knee; M22.42 Chondromalacia patellae, left knee
CPT/HCPCS: 73221; 73721

== ENCOUNTER 2025-04-12 08:57 | Inpatient (IN) | payer MEDICARE, SELFPAY ==
[2025-04-12] VITALS (104 sets, daily range): BP systolic 86–131; BP diastolic 46–85; PULSE 74–90; RESP 16–29; TEMP 37.2–38.3; O2SAT 71–98; BMI 31.5
--- NOTE | 2025-04-12 09:02 | XR_ITS ---
WS: [id number] XR chest 1V portable [id number] REASON FOR EXAM: dyspnea/cough FINDINGS: The heart and the mediastinum are within normal limits. Calcified granulomatous disease bilaterally. No acute pulmonary parenchymal or pleural abnormality. Mild degenerative spondylosis of the thoracic spine. XR/XR chest 1V portable [id number] IMPRESSION: No significant chest abnormality.
--- NOTE | 2025-04-12 09:14 | ECG_ITS ---
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 Measurements Intervals [place] Rate: 82 P: 48 NC: 151 QRS: 55 QRSD: 89 T: 47 QT: 329 QTc: 386 Interpretive Statements SINUS RHYTHM NONSPECIFIC T-WAVE ABNORMALITY Compared to ECG 11/16/2024 23:06:36 T-wave abnormality now present Sinus arrhythmia no longer present Electronically Signed On 04-14-2025 14:15:45 RN TRANSPORT by Henry Cuevas M.D. [id number] [id number]
--- NOTE | 2025-04-12 09:22 | CT_ITS ---
WS: [id number] CT ABDOMEN PELVIS TECHNIQUE: Noncontrast CT of the abdomen and pelvis with coronal and sagittal reformatted images. CLINICAL INFORMATION: abd pain COMPARISON: CT 01/24/2025 DLP: 933.[address] scans at [facility] use at least one of these dose optimization techniques: automated exposure control; mA and/or kV adjustment per patient size (includes targeted exams where dose is matched to clinical indication); or iterative reconstruction. FINDINGS: Prior LEFT nephrectomy. Prior cystectomy and prostatectomy. Ileal conduit in the RIGHT lower quadrant with urostomy. Stable hepatomegaly and splenomegaly. Stable 13 mm LEFT adrenal nodule. Ileal conduit appears patent. Inflammatory stranding and edema about the RIGHT kidney with dilatation of the RIGHT proximal ureter and ureter extending to the ileal conduit. Findings suspicious for pyelonephritis. No visualized obstructing calculi. Lung bases are well aerated. LEFT rib fractures with callus formation. Normal appendix in the RIGHT lower quadrant. Fat-containing LEFT inguinal hernia. Mild transverse colon and RIGHT colon constipation. CT/CT abdomen pelvis wo con [id number] IMPRESSION: 1. Mild inflammatory stranding and edema about the RIGHT kidney with mild dila tation of the RIGHT ureter with surrounding induration suspicious for pyeloneph ritis. No visualized obstructing lesions. 2. Ileal conduit appears patent. 3. Prior postoperative changes LEFT nephrectomy with cystectomy and prostatect diana. Ileal conduit in the RIGHT lower quadrant. Notified Mike Randall DO at 04/12/2025 10:26 AM.
[2025-04-12 09:24] LABS: Hematocrit 33.4 % (37-53); Hemoglobin 10.80 g/dL (11.27-16.99); Mean Corpuscular HGB Conc 32.3 g/dL (30-55); Mean Corpuscular Hemoglobin 27.8 pg (27-33); Mean Corpuscular Volume 86.1 fl (82-101); Nucleated Red Blood Cells % 0 %; Platelet Count 174 10^3/cmm (157-399); Red Blood Count 3.88 10^6/uL (3.85-5.65); White Blood Count 5.35 10^3/uL (3.29-11.43)
[2025-04-12 09:33] LABS: Alanine Aminotransferase 31 U/L (0-41); Albumin Level 3.9 g/dL (3.5-5.2); Alkaline Phosphatase 81 U/L (40-130); Anion Gap 20.4 (5-19); Aspartate Amino Transferase 38 U/L (0-40); Blood Urea Nitrogen 67 mg/dL (8-23); Calcium 8.7 mg/dL (8.5-10.5); Carbon Dioxide 16 mmol/L (22-29); Chloride 102 mmol/L (98-107); Creatinine Clr Calc Pharmacy 13.2883; Globulin 3.2 g/dL (1.3-4.6); Glucose 161 mg/dL (65-115); Lactic Sepsis W/Reflex 1.1 mmol/L (0.5-2.2); Osmolality Calculated 301 mOsm/kg (285-295); Potassium 4.4 mmol/L (3.5-5.1); Sodium 134 mmol/L (136-145); Total Protein 7.1 g/dL (6.6-8.7)
--- NOTE | 2025-04-12 09:34 | W.ED.URI ---
HPI - URI/Sore Throat General: Chief Complaint: Upper Respiratory Infection Stated Complaint: fever - chills Time Seen by Provider: 04/12/25 09:02 History of Present Illness: 70-year-old male presents to the emergency room with complaints of fever sweats chills generalized weakness some abdominal discomfort. This been going on last several days progressively getting worsening localized abdominal pain to the right side of his abdomen. 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 He has also had some hypotension. He denies any vomiting or diarrhea. He has been very nauseous. No shortness of breath no chest pain Associated symptoms: Deny abdominal pain, chills, chest pain or fever(s) Related Data Home Medications ?Medication ?Instructions ?Recorded ?Confirmed atenolol 25 mg tablet 25 mg PO DAILY 08/08/19 04/12/25 atorvastatin 40 mg tablet 40 mg PO DAILY 08/08/19 04/12/25 omeprazole 20 mg capsule,delayed 20 mg PO DAILY 08/08/19 04/12/25 release sertraline 100 mg tablet 100 mg PO BID 08/21/20 04/12/25 albuterol sulfate 90 mcg/actuation 2 puff inhalation Q6H PRN 04/12/25 04/12/25 aerosol inhaler (Ventolin HFA) Shortness Of Breath amlodipine 5 mg tablet 5 mg PO DAILY 04/12/25 04/12/25 azithromycin 250 mg tablet See Rx Instructions .Route .COMPLEX 04/12/25 04/12/25 fenofibrate nanocrystallized 48 mg 48 mg PO DAILY 04/12/25 04/12/25 tablet lorazepam 1 mg tablet 1 mg PO Q8H PRN Anxiety 04/12/25 04/12/25 metformin 500 mg tablet,extended 1,000 mg PO BID 04/12/25 04/12/25 release 24 hr mirtazapine 30 mg tablet 30 mg PO BEDTIME 04/12/25 04/12/25 oxycodone-acetaminophen 10 mg-325 1 tab PO Q8H PRN Severe Pain 04/12/25 04/12/25 mg tablet (Scale Score 7-10) pregabalin 50 mg capsule 50 mg PO BEDTIME 04/12/25 04/12/25 prochlorperazine maleate 10 mg 10 mg PO TID PRN Nausea 04/12/25 04/12/25 tablet silver sulfadiazine 1 % topical 1 applic topical DAILY 04/12/25 04/12/25 cream tizanidine 4 mg tablet 4 mg PO Q8H 04/12/25 04/12/25 Allergies Allergy/AdvReac Type Severity Reaction Status Date / Time No Known Allergies Allergy Verified 11/16/24 20:54 Review of Systems Const: Denies: fever(s) or chills Card: Denies: chest pain Resp: Denies: dyspnea GI: Denies: abdominal pain : Denies: dysuria, urinary frequency or urinary urgency Musc: Denies: neck pain or back pain Skin/Breast: Denies: rash PFSH ED PFSH: Medical History Type 2 diabetes mellitus without complications ED (erectile dysfunction) Testicular dysfunction Malignant neoplasm of overlapping sites of bladder Surgical History H/O transurethral destruction of bladder lesion Family History Family/Other Cancer CAD (coronary artery disease) Mother , at age 63 Brain tumor Father , at age 83 No problems noted. Social History Smoking and tobacco/nicotine status: current every day tobacco/nicotine user Alcohol intake: current Alcohol intake frequency: few times a month Substance/Drug Use: unknown Adopted: No Caregiver/support person: No Lives independently: No Household members: spouse Marital status: Current occupational status: disabled Current gender identity: Male Physical Exam Const: GENERAL APPEARANCE: cooperative ORIENTATION/CONSCIOUSNESS: Yes awake HENMT: COMMON NORMALS: normocephalic, atraumatic and hearing grossly normal bilaterally HEAD & SCALP: normocephalic and atraumatic Resp: COMMON NORMALS: normal respiratory effort, No retractions, No use of accessory muscles and clear to auscultation bilaterally AUSCULTATION: clear to auscultation bilaterally Cardio: COMMON NORMALS: regular rhythm and No murmurs present (Cardio) RATE: tachycardic RHYTHM: regular rhythm GI: COMMON NORMALS: Soft to palpation and No hepatosplenomegaly present AUSCULTATION: Yes normoactive bowel sounds PALPATION: Yes Soft to palpation, No Tenderness to palpation present (GI), No Guarding due to palpation present (GI) and Yes No hepatosplenomegaly present OTHER: Ileal conduit right mid abdomen Extremity: COMMON NORMALS: normal to inspection, capillary refill normal, no clubbing, cyanosis or edema, no calf tenderness and no pedal edema Skin: COMMON NORMALS: no rashes or lesions noted GENERAL SKIN EXAM: no rashes or lesions noted Course Vital Signs: Vital signs: Vital Signs Temperature 97.8 F 04/18/25 17:44 Pulse Rate 114 H 04/18/25 17:44 Respiratory Rate 18 04/18/25 17:44 Blood Pressure 166/91 04/18/25 17:44 Pulse Oximetry 94 04/18/25 17:44 Oxygen Delivery Me thod Room Air 04/18/25 15:52 Oxygen Flow Rate 2 04/15/25 07:35 MDM - URI/Sore Throat Medical Decision Making Medical decision making Social determinants: Minimal social support I reviewed the patient's medical record. I reviewed the patient's current home meds Alternate historians: Family Differential diagnosis metabolic encephalopathy, sepsis, pyelonephritis, UTI, elbow fracture, septic elbow joint Lab Review: Imaging: Assessment of risk: Level of risk: High Hospitalization considerations: Patient admitted for sepsis. Reexamination: Repeat exam slight improvement however is still critically ill Assessment and plan: Patient had metabolic encephalopathy with acute kidney injury and severe sepsis due to pyelonephritis. Cultures done antibiotics initiated. Sepsis fluid bolus given. CT of the abdomen shows evidence of pyelonephritis no abscess or masses. Discussed with hospitalist will admit consult nephrology. Lab Data 04/18/25 05:11 04/18/25 05:11 Radiology Impressions Abdomen/Pelvis CT 04/12/25 09:22 IMPRESSION: 1. Mild inflammatory stranding and edema about the RIGHT kidney with mild dilatation of the RIGHT ureter with surrounding induration suspicious for pyelonephritis. No visualized obstructing lesions. 2. Ileal conduit appears patent. 3. Prior postoperative changes LEFT nephrectomy with cystectomy and prostatectomy. Ileal conduit in the RIGHT lower quadrant. Notified Mike Randall DO at 04/12/2025 10:26 AM. Renal Ultrasound 04/12/25 13:47 IMPRESSION: 1. Normal RIGHT kidney. No hydronephrosis. No perinephric stranding or abscess. 2. Status post LEFT nephrectomy and cystectomy. Elbow X-Ray 04/13/25 15:15 IMPRESSION: While no distinct fracture is identified, a joint effusion is present, which raises concern for an occult fracture. Suggest follow-up radiographs in 7-10 days, as fractures typically become more apparent with healing. No joint malalignment. Elbow MRI 04/16/25 07:00 IMPRESSION: 1. Moderate joint effusion. No evidence of osteomyelitis. 2. No visualized fractures. 3. Diffuse soft tissue edema. Recommend correlation for cellulitis. Drainage Catheter Insertion 04/17/25 14:12 IMPRESSION: Uncomplicated ultrasound-guided RIGHT elbow fluid aspiration Chest X-Ray 04/18/25 13:10 IMPRESSION: PICC line terminates in a left-sided SVC near the atrial caval junction. Laboratory Results WBC 5.35 10^3/uL (3.29-11.43) 04/12/25 08:45 RBC 3.88 10^6/uL (3.85-5.65) 04/12/25 08:45 Hgb 10.80 g/dL (11.27-16.99) L 04/12/25 08:45 Hct 33.4 % (37-53) L 04/12/25 08:45 MCV 86.1 fl (82-101) 04/12/25 08:45 MCH 27.8 pg (27-33) 04/12/25 08:45 MCHC 32.3 g/dL (30-55) 04/12/25 08:45 RDW 15.7 % (12.1-15.1) H 04/12/25 08:45 Plt Count 174 10^3/cmm (157-399) 04/12/25 08:45 MPV 12.3 fL (7.4-10.4) H 04/12/25 08:45 Neut % (Auto) 70.6 % 04/12/25 08:45 Lymph % (Auto) 18.3 % 04/12/25 08:45 [place] % (Auto) 8.6 % 04/12/25 08:45 Eos % (Auto) 1.5 % 04/12/25 08:45 Baso % (Auto) 0.4 % 04/12/25 08:45 Neut # (Auto) 3.78 10^3/uL (1.8-7.7) 04/12/25 08:45 Lymph # (Auto) 1.0 10^3/uL (0.8-4.8) 04/12/25 08:45 [place] # (Auto) 0.5 10^3/uL (0.2-0.9) 04/12/25 08:45 Eos # (Auto) 0.1 10^3/uL (0.0-0.8) 04/12/25 08:45 Baso # (Auto) 0.0 10^3/uL (0.0-0.1) 04/12/25 08:45 Nucleated RBC % (auto) 0 % 04/12/25 08:45 Nucleated RBCs # 0.0 /100WBC 04/12/25 08:45 Sodium 134 mmol/L (136-145) L 04/12/25 08:45 Potassium 4.4 mmol/L (3.5-5.1) 04/12/25 08:45 Chloride 102 mmol/L (98-107) 04/12/25 08:45 Carbon Dioxide 16 mmol/L (22-29) L 04/12/25 08:45 Anion Gap 20.4 (5-19) H 04/12/25 08:45 BUN 67 mg/dL (8-23) H 04/12/25 08:45 Creatinine 6.3 mg/dL (0.7-1.2) H* 04/12/25 08:45 GFR Calculation 8.9 mL/min (90-130) L 04/12/25 08:45 Glucose 161 mg/dL (65-115) H 04/12/25 08:45 Estimat Average Glucose 134 04/12/25 08:45 Hemoglobin A1c 6.3 % (4.0-6.0) H 04/12/25 08:45 Calculated Osmolality 301 mOsm/kg (285-295) H 04/12/25 08:45 Lactic Acid 1.1 mmol/L (0.5-2.2) 04/12/25 08:45 Uric Acid 9.3 mg/dL (3.4-7.0) H 04/12/25 08:45 Calcium 8.7 mg/dL (8.5-10.5) 04/12/25 08:45 Total Bilirubin 0.6 mg/dL (0.15-1.2) 04/12/25 08:45 AST 38 U/L (0-40) 04/12/25 08:45 ALT 31 U/L (0-41) 04/12/25 08:45 Alkaline Phosphatase 81 U/L (40-130) 04/12/25 08:45 Total Protein 7.1 g/dL (6.6-8.7) 04/12/25 08:45 Albumin 3.9 g/dL (3.5-5.2) 04/12/25 08:45 Globulin 3.2 g/dL (1.3-4.6) 04/12/25 08:45 TSH 1.19 uIU/mL (0.27-4.20) 04/12/25 08:45 Urine Color Yellow (Yellow) 04/12/25 09:35 Urine Appearance Turbid (CLEAR) A 04/12/25 09:35 Urine pH 7.0 (5-7) 04/12/25 09:35 Ur Specific [place] 1.016 (1.005-1.030) 04/12/25 09:35 Urine Protein 2+ (Negative) A 04/12/25 09:35 Urine Glucose (UA) Negative (Normal) 04/12/25 09:35 Urine Ketones Trace (Negative) 04/12/25 09:35 Urine Blood 3+ (Negative) A 04/12/25 09:35 Urine Nitrate Negative (Negative) 04/12/25 09:35 Urine Bilirubin Negative (Negative) 04/12/25 09:35 Urine Urobilinogen 1.0 mg/dL (Negative) 04/12/25 09:35 Ur Leukocyte Esterase 3+ (Negative) A 04/12/25 09:35 Urine RBC 21-50 /hpf (0-2) H 04/12/25 09:35 Urine WBC >100 /hpf (0-5) H 04/12/25 09:35 Ur Squamous Epith Cells 0-5 /hpf (0-5) 04/12/25 09:35 Amorphous Sediment Not Reportable 04/12/25 09:35 Urine Bacteria 4+ /hpf (NONE) H 04/12/25 09:35 Hyaline Casts 22.33 /lpf 04/12/25 09:35 Ur Oval Fat Bodies Rare /hpf 04/12/25 09:35 Serum Ketones Negative (Negative) 04/12/25 08:45 Influenza A (PCR) Negative (Negative) 04/12/25 09:16 Influenza Type B (PCR) Negative (Negative) 04/12/25 09:16 RSV (PCR) Negative (Negative) 04/12/25 09:16 SARS-CoV-2 (PCR) Negative (Negative) 04/12/25 09:16 All radiology interpretation(s) finalized by discharge EKG Data EKG 1: I personally reviewed and interpreted this EKG as follows: Interpretation: EKG 04/12/2025 9:14 AM sinus rhythm rate of [address] changes laterally. UT interval 151 QTc 386. Compared to EKG 11/16/2024 no acute changes. Discharge Plan Discharge Patient Disposition: Admitted As Inpatient Admit Provider: Jessica Myrick Clinical Impression: Severe sepsis, Pyelonephritis, ARNOLD (acute kidney injury), Effusion of right elbow, Type 2 diabetes mellitus without complications, Ureteral cancer, Hypocalcemia Condition: Stable Coding Level of Care Code ED Welfare Centre Manager for Chg Jade
[2025-04-12 09:45] LABS: Glucose Urine UA Negative (Normal); Nitrate Urine Negative (Negative); Specific Gravity, Urine 1.016 (1.005-1.030)
[2025-04-12 09:50] LABS: Add Urine Microscopic? YES
[2025-04-12 09:50] LABS: Ketone (Acetest) Serum Negative (Negative)
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
--- OUTSIDE RECORDS SUMMARY | 2025-04-12 10:00 | XMS_ITS | Patient Health Record ---
Author Organization [facility] Address [address] [place] [address] Care Team Providers Care Traveling Accountant Name Role Phone Robert Canales Reason For Referral No Information Plan Of Treatment No Information
[2025-04-12 10:15] LABS: UA Slide Review UA Slide Review Perf
[2025-04-12 10:16] LABS: Oval Fat Bodies Urine RARE /hpf
[2025-04-12 10:21] LABS: Respiratory Syncytial Virus Ce NEGATIVE (Negative); SARS-CoV-2 PCR NEGATIVE (Negative)
[2025-04-12] MEDS: cefTRIAXone 1,000 mg SDV 1000 MG IVP (10:40)
--- NOTE | 2025-04-12 13:31 | PM.HP ---
Providers/Chief Complaint Admitting Physician: Jessica Myrick MD Primary Care Provider: Jh Morejon Chief Complaint: fever - chills History of Present Illness As per the previous notes and the patient/family: Kip Henry is a 70 year old male with PMH of ED( erectile dysfunction) bladder cancer s/p surgery and ileal conduit with urinary diversion, type 2 DM, obesity was in his usual state of health when around 2-3 days he was feeling febrile associated with high grade fever and chills. he was also having mild nausea with feeling of being tired. He has been eating and well hydrated in the past. no previous frequent UTIs. his ileal conduit is working well however the patient has reported having dark colored urine and mild pain around the lower abdomen. but no hematuria or any pus or any decrease output noticed. No recent increased in his lower leg swellings. no flank tendernesses. no chest pain, chest pressure, sob, orthopnea or PND, rest of the review of the system is unremarkable, the patient use to follow up with the urology at [facility] however its been a while that he has seen the urologist and takes care of the ileal conduit by himself when he showers. Review of Systems General: Reports: 10 or more systems reviewed and unremarkable except in HPI and below Medications/Allergies Home Medications ?Medication ?Instructions ?Recorded ?Confirmed ?Last Taken ?Type atenolol 25 mg tablet 25 mg PO DAILY 08/08/19 04/12/25 04/11/25 History atorvastatin 40 mg tablet 40 mg PO DAILY 08/08/19 04/12/25 04/11/25 History omeprazole 20 mg capsule,delayed 20 mg PO DAILY 08/08/19 04/12/25 04/11/25 History release sertraline 100 mg tablet 100 mg PO BID 08/21/20 04/12/25 04/11/25 History albuterol sulfate 90 mcg/actuation 2 puff inhalation Q6H PRN 04/12/25 04/12/25 Unknown History aerosol inhaler (Ventolin HFA) Shortness Of Breath amlodipine 5 mg tablet 5 mg PO DAILY 04/12/25 04/12/25 04/11/25 History azithromycin 250 mg tablet See Rx Instructions .Route .COMPLEX 04/12/25 04/12/25 04/11/25 History fenofibrate nanocrystallized 48 mg 48 mg PO DAILY 04/12/25 04/12/25 04/11/25 History tablet lorazepam 1 mg tablet 1 mg PO Q8H PRN Anxiety 04/12/25 04/12/25 04/11/25 History metformin 500 mg tablet,extended 1,000 mg PO BID 04/12/25 04/12/25 04/11/25 History release 24 hr mirtazapine 30 mg tablet 30 mg PO BEDTIME 04/12/25 04/12/25 04/11/25 History oxycodone-acetaminophen 10 mg-325 1 tab PO Q8H PRN Severe Pain 04/12/25 04/12/25 Unknown History mg tablet (Scale Score 7-10) pregabalin 50 mg capsule 50 mg PO BEDTIME 04/12/25 04/12/25 04/11/25 History prochlorperazine maleate 10 mg 10 mg PO TID PRN Nausea 04/12/25 04/12/25 Unknown History tablet silver sulfadiazine 1 % topical 1 applic topical DAILY 04/12/25 04/12/25 Unknown History cream tizanidine 4 mg tablet 4 mg PO Q8H 04/12/25 04/12/25 04/11/25 History Allergies Allergy/AdvReac Type Severity Reaction Status Date / Time No Known Allergies Allergy Verified 11/16/24 20:54 PFSH Acute PFSH: Medical History (Updated 04/12/25 @ 18:16 by Jessica Myrick MD) Type 2 diabetes mellitus without complications ED (erectile dysfunction) Testicular dysfunction Malignant neoplasm of overlapping sites of bladder Surgical History H/O transurethral destruction of bladder lesion Family History Family/Other Cancer CAD (coronary artery disease) Mother , at age 63 Brain tumor Father , at age 83 No problems noted. Social History Smoking and tobacco/nicotine status: current every day tobacco/nicotine user Alcohol intake: current Alcohol intake frequency: few times a month Substance/Drug Use: unknown Adopted: No Caregiver/support person: No Lives independently: No Household members: spouse Marital status: Current occupational status: disabled Current gender identity: Male Vitals/I&O/Wt Last Vital Signs Temp 101.0 F H 04/12/25 08:58 Pulse 82 04/12/25 12:00 Resp 29 H 04/12/25 12:00 BP 100/65 04/12/25 12:00 Pulse Ox 94 04/12/25 12:00 O2 Del Method Room Air 04/12/25 08:58 04/11/25 04/12/25 04/12/25 22:59 06:59 14:59 Intake Total 3190 / 3190 Balance 3190 / 3190 Weight last 48 hrs Weight 99.79 kg Physical Exam Narrative: General: Alert and oriented, lying comfortably without any distress at room air HEENT: Normocephalic, atraumatic, grossly unremarkable exam Cardio: normal rate rhythm, normal S1-S2 without any murmurs, rubs, or gallops and JVD normal Respiratory: normal vascular breathing on auscultation without any wheezes, stridor, rhonchi GI: Abdomen soft, nontender, nondistended, normoactive bowel sounds present all 4 quadrants, having ileal conduit working with the bag attached and draining urine adequately, having midline scar below umbilicus of previous surgery Neuro: intact cranial nerves motor and sensory and cerebellar/coordination function without any focal neurological deficit Behavior: Appropriate and cooperative Extremities: Adequate palpable pulses and normal capillary refill, mild trace edema. Data 04/12/25 08:45 04/12/25 08:45 Micro: Microbiology 04/12/25 10:26 Blood Culture - Preliminary Blood SPECIMEN COLLECTED 04/12/25 10:31 Blood Culture - Preliminary Blood SPECIMEN COLLECTED A&P Assessment and plan 1. Severe sepsis: 2 sets of blood cultures, urine cultures, chest x-ray Lactate series, patient having adequate capillary refill after fluid bolus and is fluid responsive, Maintain 2 IV bore cannulas Broad-spectrum antibiotics coverage with Zosyn and vancomycin guided by the pharmacy as per kidney function/GFR IV fluid bolus and continue maintenance fluids since the patient is fluid responsive Maintain MAP above 65 Hold antihypertensives, beta-blockers or any blood pressure lowering medications Ileal conduit care with adequate intake and output monitoring Monitor renal functions 2. Pyelonephritis: CT abdomen pelvis showing features of pyelonephritis, Patient having severe ARNOLD/class III Nephrology consult Continue broad-spectrum antibiotics as mentioned above Monitor intake and output through the ileal conduit Correction and monitoring of electrolytes accordingly Adequate hydration to continue 3. ARNOLD (acute kidney injury): Workup for ARNOLD Likely related to underlying pyelonephritis/septic shock possible prerenal? Nephrology consulted and follow the recommendation CT abdomen pelvis did not show any features of obstructive uropathy, Urine studies with urine electrolytes, urine osmolarity, urine protein/microalbumin, urine sodium, uric acid, urine creatinine, ultrasound kidneys Monitor renal parameters Correction and monitoring of electrolytes Monitor intake and output 4. Type 2 diabetes mellitus without complications: HbA1c TSH Sliding scale insulin with further monitoring Continue home dose statins 5. Malignant neoplasm of overlapping sites of bladder: Currently stable, no active/features of hematuria or any weight loss or B symptoms Patient is not following up with any urologist at the moment Urology referral at the time of discharge, he used to follow at [place] 6. Neuropathy: Patient on pregabalin per review of home medications To resume after reconciliation 7. Anxiety: Patient on sertraline, and lorazepam as needed for anxiety Resume sertraline and lorazepam as needed for anxiety Monitor for any symptoms 8. Hypocalcemia: albumin normal, low calcium 2gm yaya gluconate FU in the morning telemetry Plan: Diet: Renal nondialysis VTE: Heparin twice daily PDMP PDMP Reviewed: Not Reviewed Attestations Medical Necessity Statement*: Kip Henry's hospital stay will require greater than 2 midnights for management of complicated pyelonephritis leading to septic shock, fluid responsive and further management accordingly Time Spent in Patient Care: 16 - 35 minutes (>than 50% of time spent in counselling and/or direct pt care on unit). Critical Care Time: The high probability of a clinically significant, sudden or life threatening deterioration, as referenced in this documentation, required my full and direct attention, intervention and personal management. The critical care time shown is in addition to time spent performing any reported separately billable procedures and includes the following: [x] Data and vital sign review and interpretation [x] Patient assessment, examination and intervention [x] Medication orders and management [x] Patient/Family updates as able [x] Care Coordination and Documentation. Critical Care Time (min): 35 Other Attestations: Patient condition has been discussed at length with the patient/family, I have independently reviewed the chart labs imaging/diagnostics/EKG. the goals of care and code status with the patient/family/NOK/legal petroleum products sales representative, and documented accordingly. The management has been done according to the current clinical condition with respect to patient goals of care and based on recommendations/guidelines. The patient/family has been informed about the current condition and further plan of care. Agreed with the plan of care and understood without any language barrier. Every effort was made to ensure accuracy of semaphore operator. Any obvious errors or omissions should be clarified with the author of the document. Coding Level of Care Code Critical Care >/= 30 minutes Diagnoses Severe sepsis A41.9; R65.20 Pyelonephritis N12 ARNOLD (acute kidney injury) N17.9 Type 2 diabetes mellitus without complications E11.9 Malignant neoplasm of overlapping sites of bladder C67.8 Neuropathy G62.9 Anxiety F41.9 Hypocalcemia E83.51
--- NOTE | 2025-04-12 13:47 | US_ITS ---
WS: [id number] RENAL ULTRASOUND HISTORY: ARNOLD on CKD? COMPARISON: 05/31/2018 and 04/12/2025 TECHNIQUE: 2-D and color Doppler imaging of the kidney submitted. Right kidney: 14.5 cm x 7.2 cm x 7.7 cm. Cortex: 1.6 cm Normal echogenicity with no hydronephrosis or mass. Left kidney: Prior LEFT nephrectomy. Aorta: Normal. Urinary Bladder: Prior cystectomy. US/US renal BI* [id number] IMPRESSION: 1. Normal RIGHT kidney. No hydronephrosis. No perinephric stranding or abscess . 2. Status post LEFT nephrectomy and cystectomy.
--- NOTE | 2025-04-12 14:02 | PM.CONSULT ---
Providers/Reason For Consult Consulting Physician/Specialty*: Elroy Ruiz MD/ tele-nephrology Reason for Consult*: Acute kidney injury metabolic acidosis and hyponatremia Requesting Physician: Dr Myrick Attending Physician: Dr Myrick Primary Care Provider: Jh Morejon History of Present Illness History of Present Illness Kip Henry is a 70 year old male history of bladder cancer status post left nephrectomy cystectomy prostatectomy ileal conduit in right lower quadrant with urostomy. Patient has underlying obesity diabetes hypertension. The patient states that he has been having fevers chills weakness for the last couple days mild nausea and not feeling well had some vomiting. He states that his urine output has been decreasing however is now improving urine output. He has fevers chills weakness dyspnea no orthopnea no shortness of breath at rest. No diarrhea. Patient states that he did not take his medications for the last couple days however he is on metformin and atenolol and amlodipine. Review of Systems Narrative: Weak lethargic nausea, not eating well denies diarrhea 1 episode of vomiting no here worsening changes. Decreased urine output weakness. Medications/Allergies Home Medications ?Medication ?Instructions ?Recorded ?Confirmed ?Last Taken ?Type atenolol 25 mg tablet 25 mg PO DAILY 08/08/19 04/12/25 04/11/25 History atorvastatin 40 mg tablet 40 mg PO DAILY 08/08/19 04/12/25 04/11/25 History omeprazole 20 mg capsule,delayed 20 mg PO DAILY 08/08/19 04/12/25 04/11/25 History release sertraline 100 mg tablet 100 mg PO BID 08/21/20 04/12/25 04/11/25 History albuterol sulfate 90 mcg/actuation 2 puff inhalation Q6H PRN 04/12/25 04/12/25 Unknown History aerosol inhaler (Ventolin HFA) Shortness Of Breath amlodipine 5 mg tablet 5 mg PO DAILY 04/12/25 04/12/25 04/11/25 History azithromycin 250 mg tablet See Rx Instructions .Route .COMPLEX 04/12/25 04/12/25 04/11/25 History fenofibrate nanocrystallized 48 mg 48 mg PO DAILY 04/12/25 04/12/25 04/11/25 History tablet lorazepam 1 mg tablet 1 mg PO Q8H PRN Anxiety 04/12/25 04/12/25 04/11/25 History metformin 500 mg tablet,extended 1,000 mg PO BID 04/12/25 04/12/25 04/11/25 History release 24 hr mirtazapine 30 mg tablet 30 mg PO BEDTIME 04/12/25 04/12/25 04/11/25 History oxycodone-acetaminophen 10 mg-325 1 tab PO Q8H PRN Severe Pain 04/12/25 04/12/25 Unknown History mg tablet (Scale Score 7-10) pregabalin 50 mg capsule 50 mg PO BEDTIME 04/12/25 04/12/25 04/11/25 History prochlorperazine maleate 10 mg 10 mg PO TID PRN Nausea 04/12/25 04/12/25 Unknown History tablet silver sulfadiazine 1 % topical 1 applic topical DAILY 04/12/25 04/12/25 Unknown History cream tizanidine 4 mg tablet 4 mg PO Q8H 04/12/25 04/12/25 04/11/25 History Allergies Allergy/AdvReac Type Severity Reaction Status Date / Time No Known Allergies Allergy Verified 11/16/24 20:54 Current Medications Generic Name Dose Route Start Last Admin Trade Name Freq PRN Reason Stop Dose Admin Sodium Chloride 1,000 mls @ 100 mls/hr 04/12/25 11:26 04/12/25 12:05 Sodium Chloride 0.9% IV 100 mls/hr .Q10H KEV Administration PFSH Acute PFSH: Medical History (Updated 04/12/25 @ 13:51 by Jessica Myrick MD) Type 2 diabetes mellitus without complications ED (erectile dysfunction) Testicular dysfunction Malignant neoplasm of overlapping sites of bladder Surgical History H/O transurethral destruction of bladder lesion Family History Family/Other Cancer CAD (coronary artery disease) Mother , at age 63 Brain tumor Father , at age 83 No problems noted. Social History Smoking and tobacco/nicotine status: current every day tobacco/nicotine user Alcohol intake: current Alcohol intake frequency: few times a month Substance/Drug Use: unknown Adopted: No Caregiver/support person: No Lives independently: No Household members: spouse Marital status: Current occupational status: disabled Current gender identity: Male Vitals/I&O/Wt Last Vital Signs Temp 101.0 F H 04/12/25 08:58 Pulse 82 04/12/25 12:00 Resp 29 H 04/12/25 12:00 BP 100/65 04/12/25 12:00 Pulse Ox 94 04/12/25 12:00 O2 Del Method Room Air 04/12/25 08:58 04/11/25 04/12/25 04/12/25 22:59 06:59 14:59 Intake Total 3190 / 3190 Balance 3190 / 3190 Weight last 48 hrs Weight 99.79 kg Physical Exam Narrative: Vital signs noted. Patient lying in bed no apparent distress. HEENT normocephalic atraumatic. Neck is supple Lungs are clear to auscultation. Heart is regular no rubs or gallops. Abdomen soft positive bowel sounds. Patient is a urostomy tube Extremities no edema Neuro awake alert oriented x 3 Data 04/12/25 08:45 04/12/25 08:45 Micro: Microbiology 04/12/25 10:26 Blood Culture - Preliminary Blood SPECIMEN COLLECTED 04/12/25 10:31 Blood Culture - Preliminary Blood SPECIMEN COLLECTED A&P Assessment and plan 1. ARNOLD (acute kidney injury): 70 year old male history of bladder cancer status post left nephrectomy cystectomy prostatectomy ileal conduit in right lower quadrant with urostomy. Patient has underlying obesity diabetes hypertension. 1. Sepsis evaluation likely UTI as per hospitalist broad-spectrum antibiotics please dose for renal failure 2. Acute kidney injury-abdominal CT scan reviewed he has a patent right-sided ileal conduit. It appears that he also has some stranding and edema by the right kidney with dilatation of right proximal ureter suspicious for pyelonephritis. Please treat with antibiotics may need urology evaluation. -Urinalysis turbid 2+ protein 3+ blood 3+ leuk esterase 21-50 RBC, greater than 100 white cells 4+ bacteria. - Will check urine electrolytes microalbumin and protein and creatinine. 3. Patient has CKD in 2019 his creatinine 0.7 in 2021 creatinine is 1.2 since his nephrectomy in January 2025 his creatinine is 1.7 likely due to diabetes obesity hypertension nephrectomy comes in now with acute kidney injury on CKD 4. Increased anion gap metabolic acidosis will check lactic acid and ABG and beta hydroxybutyrate to ensure the patient does not have metformin associated lactic acidosis or that he has DKA. Please do not give metformin at this time. Will treat with lactated Ringer's. 5. Hyponatremia check urine electrolytes. Check TSH and a.m. cortisol level. 6. Anemia likely from nephrectomy and history of underlying neoplasm of urological system. Patient seen examined using telehealth used audiovisual equipment and the aid of a nurse. The patient consented to telehealth. Plan: See above. PDMP PDMP Reviewed: Not Reviewed Consult Attestations Medical Necessity Statement: Acute kidney injury, sepsis, hyponatremia, increased anion gap metabolic acidosis Time Spent in Patient Care: Greater than 35 minutes (>than 50% of time spent in counselling and/or direct pt care on unit). Coding Level of Care Code Acute Code for Chg Fwd Diagnoses ARNOLD (acute kidney injury) N17.9
[2025-04-12] MEDS: morphine 4 mg/mL SDV 1 mL 2 MG IVP (14:10)
[2025-04-12] MEDS: heparin 5,000 unit/mL INJ 1 mL 5000 UNIT SUBCUT (14:11)
[2025-04-12 14:15] LABS: Estmated Average Glucose 134; Hemoglobin A1C 6.3 % (4.0-6.0)
[2025-04-12 14:19] LABS: Thyroid Stimulating Hormone 1.19 uIU/mL (0.27-4.20); Uric Acid 9.3 mg/dL (3.4-7.0)
--- NOTE | 2025-04-12 15:41 | PC.NURSE ---
arrived from ed, transferred self to bed
[2025-04-12 15:57] LABS: ABG PCO2 29.7 mmHg (35-45); ABG PH Result 7.27 (7.35-7.45); Alveolar-Arterial Oxygen Gradi 4.6 mmHg (5-10); Arterial Blood Gas Hematocrit 31.6 % (42-52); Blood Gas Allen Test Pos; Blood Gas Operator Identificat BROMA; Blood Gas Sample Site Radial, right; Blood Gas Sample Type Arterial; Carboxyhemoglobin < 0.3 %THgb (0.4-20.1); Glucose Level-ABG 103.0 mg/dL (70-115); HCO3 ABG 13.6 mmol/L (22-26); Ionized Calcium Level - ABG 1.1 mmol/L (1.1-1.4); Methemoglobin 1.3 % (0.4-1.5); Oxygen Saturation ABG 93.5; PO2 ABG 76.2 mmHg (80.0-100.0); PO2 FiO2 Ratio Arterial Blood 362; Potassium Level - ABG 4.2 mmol/L (3.5-5.0); Sodium Level - ABG 137.0 mmol/L (131-143)
[2025-04-12 17:47] LABS: Lactate (Lactic Acid level) 0.5 mmol/L (0.5-2.2)
[2025-04-12 17:48] LABS: Alanine Aminotransferase 27 U/L (0-41); Albumin Level 3.5 g/dL (3.5-5.2); Alkaline Phosphatase 66 U/L (40-130); Anion Gap 19.3 (5-19); Aspartate Amino Transferase 30 U/L (0-40); Blood Urea Nitrogen 64 mg/dL (8-23); Calcium 7.4 mg/dL (8.5-10.5); Carbon Dioxide 15 mmol/L (22-29); Chloride 109 mmol/L (98-107); Globulin 2.8 g/dL (1.3-4.6); Glucose 101 mg/dL (65-115); Osmolality Calculated 306 mOsm/kg (285-295); Potassium 4.3 mmol/L (3.5-5.1); Sodium 139 mmol/L (136-145); Total Protein 6.3 g/dL (6.6-8.7)
[2025-04-12] MEDS: HYDROcodone-acetaminophen 5-325 mg Tablet 1 TAB PO (18:09)
[2025-04-12 18:47] LABS: Creatinine Urine, Random 75 mg/dL (39-259); Potassium, Radom Urine 13 mmol/L; Urine Random Chloride 56 mmol/L; Urine Random Sodium 73 mmol/L
[2025-04-12 18:48] LABS: Microalbum Creatinine Ratio Ur 200 mg/dL (0-20)
[2025-04-12] MEDS: calcium gluconate 0.9% NaCL 1 GM/50 ML PREMIX IV ×2 (19:02→19:45)
[2025-04-12] MEDS: morphine 4 mg/mL SDV 1 mL IVP (19:55)
[2025-04-13] VITALS (17 sets, daily range): BP systolic 87–184; BP diastolic 44–77; PULSE 59–76; RESP 15–21; TEMP 36.5–37.1; O2SAT 92–99
[2025-04-13] MEDS: heparin 5,000 unit/mL INJ 1 mL 5000 UNIT SUBCUT ×2 (01:26→13:10)
[2025-04-13] MEDS: pantoprazole 40 mg SDV IVP (04:26)
[2025-04-13] MEDS: HYDROcodone-acetaminophen 5-325 mg Tablet 1 TAB PO ×4 (04:29→21:45)
[2025-04-13 05:20] LABS: Hematocrit 31.4 % (37-53); Hemoglobin 9.90 g/dL (11.27-16.99); Mean Corpuscular HGB Conc 31.5 g/dL (30-55); Mean Corpuscular Hemoglobin 28.0 pg (27-33); Mean Corpuscular Volume 88.7 fl (82-101); Nucleated Red Blood Cells % 0 %; Platelet Count 145 10^3/cmm (157-399); Red Blood Count 3.54 10^6/uL (3.85-5.65); White Blood Count 4.02 10^3/uL (3.29-11.43)
[2025-04-13 05:44] LABS: Alanine Aminotransferase 26 U/L (0-41); Albumin Level 3.3 g/dL (3.5-5.2); Alkaline Phosphatase 70 U/L (40-130); Anion Gap 19.2 (5-19); Aspartate Amino Transferase 28 U/L (0-40); Blood Urea Nitrogen 60 mg/dL (8-23); Calcium 8.5 mg/dL (8.5-10.5); Carbon Dioxide 14 mmol/L (22-29); Chloride 110 mmol/L (98-107); Globulin 3.1 g/dL (1.3-4.6); Glucose 92 mg/dL (65-115); Iron 22 ug/dL (59-158); Magnesium 1.8 mg/dL (1.7-2.3); Osmolality Calculated 305 mOsm/kg (285-295); Potassium 4.2 mmol/L (3.5-5.1); Sodium 139 mmol/L (136-145); Total Iron Binding Capacity 225 mcg/dl; Total Protein 6.4 g/dL (6.6-8.7); Unsaturated Iron Binding 203 ug/dL (112-347)
[2025-04-13 05:45] LABS: Calcium 8.3 mg/dL (8.5-10.5)
--- NOTE | 2025-04-13 07:47 | PHA.VACGOAL ---
Vancomycin Goal - Goal Vancomycin Goal:: 15-20 mg/L Vancomycin Indication:: Other (SEPSIS/UTI) - Therapy Day of therpy:: Day []of [] . Actual body weight (kg): 225 lb 8 oz - Data Labs: WBC 4.02 10^3/uL (3.29-11.43) 04/13/25 04:27 RBC 3.54 10^6/uL (3.85-5.65) L 04/13/25 04:27 Hgb 9.90 g/dL (11.27-16.99) L 04/13/25 04:27 Hct 31.4 % (37-53) L 04/13/25 04:27 MCV 88.7 fl (82-101) 04/13/25 04:27 MCH 28.0 pg (27-33) 04/13/25 04:27 MCHC 31.5 g/dL (30-55) 04/13/25 04:27 RDW 15.3 % (12.1-15.1) H 04/13/25 04:27 Sodium 139 mmol/L (136-145) 04/13/25 04:27 Potassium 4.2 mmol/L (3.5-5.1) 04/13/25 04:27 Chloride 110 mmol/L (98-107) H 04/13/25 04:27 Carbon Dioxide 14 mmol/L (22-29) L 04/13/25 04:27 Anion Gap 19.2 (5-19) H 04/13/25 04:27 BUN 60 mg/dL (8-23) H 04/13/25 04:27 Creatinine 4.2 mg/dL (0.7-1.2) H 04/13/25 04:27 GFR Calculation 14.2 mL/min (90-130) L 04/13/25 04:27 Last dialysis session:: N/A Treatment plan:: new consult Regimen:: INITIAL LOADING DOSE OF 1000 MG. PLAN TO PULSE DOSE DUE TO RENAL FUNCTION. WILL OBTAIN A LEVEL 24 HOURS POST LOADING DOSE. Follow up:: LEVEL 04/13 @1500
--- NOTE | 2025-04-13 09:18 | P.PN_ITS ---
Subjective 2 Subjective: no new c/o Medications: Reviewed: Yes Vitals/I&O/Wt Last Vital Signs Temp 98.8 F 04/13/25 04:00 Pulse 65 04/13/25 06:00 Resp 19 H 04/13/25 06:00 BP 100/58 04/13/25 06:00 Pulse Ox 94 04/13/25 06:00 O2 Del Method Room Air 04/12/25 15:07 04/12/25 04/13/25 04/13/25 22:59 06:59 14:59 Intake Total 2005.833 / 5195.833 1000 / 6195.833 Output Total 1500 / 1500 1850 / 3350 Balance 505.833 / 3695.833 -850 / 2845.833 Weight last 48 hrs Weight 102.285 kg Weight 99.79 kg Physical Exam 2 Narrative: Vital signs noted. Patient lying in bed no apparent distress. HEENT normocephalic atraumatic. Neck is supple Lungs are clear to auscultation. Heart is regular no rubs or gallops. Abdomen soft positive bowel sounds. Patient is a urostomy tube Extremities no edema Neuro awake alert oriented x 3 Data 04/13/25 04:27 04/13/25 04:27 Micro: Microbiology 04/12/25 09:35 Urine Culture - Preliminary Urine,Clean Catch Gram Negative Rods Gram Negative Rods#2 04/12/25 10:26 Blood Culture - Preliminary Blood SPECIMEN COLLECTED 04/12/25 10:31 Blood Culture - Preliminary Blood SPECIMEN COLLECTED A&P Assessment and plan 1. ARNOLD (acute kidney injury): 70 year old male history of bladder cancer status post left nephrectomy cystectomy prostatectomy ileal conduit in right lower quadrant with urostomy. Patient has underlying obesity diabetes hypertension. 1. Sepsis: likely UTI , on broad-spectrum antibiotics 2. Acute kidney injury-abdominal CT scan reviewed he has a patent right-sided ileal conduit. It appears that he also has some stranding and edema by the right kidney with dilatation of right proximal ureter suspicious for pyelonephritis. -Urinalysis turbid 2+ protein 3+ blood 3+ leuk esterase 21-50 RBC, greater than 100 white cells 4+ bacteria. - Will check urine electrolytes microalbumin and protein and creatinine. - Cr improving - switched IVFs from LR to bicarbonate drip 3. Patient has CKD in 2019 his creatinine 0.7 in 2021 creatinine is 1.2 since his nephrectomy in January 2025 his creatinine is 1.7 likely due to diabetes obesity hypertension nephrectomy 4. Increased anion gap metabolic acidosis , lactate normal , placed on bicarb drip 5. Hyponatremia improved 6. Anemia likely from nephrectomy and history of underlying neoplasm of urological system. Patient seen examined using telehealth used audiovisual equipment and the aid of a nurse. The patient consented to telehealth. Plan: See above. PDMP PDMP Reviewed: Not Reviewed Attestations 2 Medical Necessity Statement*: per chantel Coding Level of Care Code Acute Code for Chg Fwd Diagnoses ARNOLD (acute kidney injury) N17.9
--- NOTE | 2025-04-13 11:13 | P.PN_ITS ---
Subjective 2 Subjective: the patient is better and signs and symptoms have been improved labs and imaging reviewed stable to be transferred patient did not voice any complains. Medications: Reviewed: Yes Vitals/I&O/Wt Last Vital Signs Temp 98.8 F 04/13/25 04:00 Pulse 71 04/13/25 10:14 Resp 19 H 04/13/25 06:00 BP 100/58 04/13/25 06:00 Pulse Ox 96 04/13/25 10:14 O2 Del Method Room Air 04/13/25 10:14 04/12/25 04/13/25 04/13/25 22:59 06:59 14:59 Intake Total 2005.833 / 5195.833 1000 / 6195.833 Output Total 1500 / 1500 1850 / 3350 Balance 505.833 / 3695.833 -850 / 2845.833 Weight last 48 hrs Weight 102.285 kg Weight 99.79 kg Physical Exam 2 Narrative: General: Alert and oriented, lying comfortably without any distress at room air HEENT: Normocephalic, atraumatic, grossly unremarkable exam Cardio: normal rate rhythm, normal S1-S2 without any murmurs, rubs, or gallops and JVD normal Respiratory: normal vascular breathing on auscultation without any wheezes, stridor, rhonchi GI: Abdomen soft, nontender, nondistended, normoactive bowel sounds present all 4 quadrants, having ileal conduit working with the bag attached and draining urine adequately, having midline scar below umbilicus of previous surgery Neuro: intact cranial nerves motor and sensory and cerebellar/coordination function without any focal neurological deficit Behavior: Appropriate and cooperative Extremities: Adequate palpable pulses and normal capillary refill, mild trace edema that is improving Data 04/13/25 04:27 04/13/25 04:27 Micro: Microbiology 04/12/25 10:26 Blood Culture - Preliminary Blood NEGATIVE TO DATE 04/12/25 10:31 Blood Culture - Preliminary Blood NEGATIVE TO DATE 04/12/25 09:35 Urine Culture - Preliminary Urine,Clean Catch Gram Negative Rods Gram Negative Rods#2 A&P Assessment and plan 1. Severe sepsis: - 2 sets of blood cultures prelim negative - urine cultures growing gram negative rods and to follow the culture sensitivity, chest x-ray was unremarkable - Lactate series unremarkable - patient having adequate capillary refill. Broad-spectrum antibiotics coverage with Zosyn renally adjusted 2.25 q8h and vancomycin guided by the pharmacy as per kidney function/GFR cont maintenance fluids Maintain MAP above 65 Hold antihypertensives, beta-blockers or any blood pressure lowering medications Ileal conduit care with adequate intake and output monitoring Monitor renal functions 2. Pyelonephritis: CT abdomen pelvis showing features of pyelonephritis, Patient having severe ARNOLD/class III currently improving Nephrology consulted and onboard for further management Continue broad-spectrum antibiotics as mentioned above keep I/O charting, and monitor renal parameters 3. ARNOLD (acute kidney injury): Workup for ARNOLD, renal parameters improving Likely related to underlying pyelonephritis/septic shock possible prerenal? Nephrology onboard CT abdomen pelvis did not show any features of obstructive uropathy, urine studies reviewed, cortisol in the morning PTH normal, low yaya, low Vit D, with chronic anemia, possibility of CKD element?, referral to nephrology at the time of discharge as well. Correction and monitoring of electrolytes Monitor I/O, daily renal paremeters 4. Type 2 diabetes mellitus without complications: HbA1c: 6.3 TSH:normal Sliding scale insulin with further monitoring Continue home dose statins, fenofibrates 5. Malignant neoplasm of overlapping sites of bladder: Currently stable, no active/features of hematuria or any weight loss or B symptoms Patient is not following up with any urologist at the moment Urology referral at the time of discharge, he used to follow at [place] 6. Neuropathy: cont home dose pregabalin and adequate analgesia as per pain scale 7. Anxiety: Patient on sertraline, and lorazepam as needed for anxiety Resume sertraline and lorazepam as needed for anxiety Monitor for any symptoms 8. Hypocalcemia: albumin normal, low calcium and corrected after ca glu supplementation telemetry Plan: Diet: Renal nondialysis VTE: Heparin twice daily PDMP PDMP Reviewed: Not Reviewed Attestations 2 Medical Necessity Statement*: Kip Henry's hospital stay will require greater than 2 midnights for management of complicated pyelonephritis leading to septic shock currently improving and out of shock transfer to floors and to follow the cultures sensitivity Time Spent in Patient Care: 16 - 35 minutes (>than 50% of time sp ent in counselling and/or direct pt care on unit) . Other Attestations: Patient condition has been discussed at length with the patient/family, I have independently reviewed the chart labs imaging/diagnostics/EKG. the goals of care and code status with the patient/family/NOK/legal account development representative, and documented accordingly. The management has been done according to the current clinical condition with respect to patient goals of care and based on recommendations/guidelines. The patient/family has been informed about the current condition and further plan of care. Agreed with the plan of care and understood without any language barrier. Every effort was made to ensure accuracy of disease and insect control boss. Any obvious errors or omissions should be clarified with the author of the document. Coding Level of Care Code 21171 Diagnoses Severe sepsis A41.9; R65.20 Pyelonephritis N12 ARNOLD (acute kidney injury) N17.9 Type 2 diabetes mellitus without complications E11.9 Malignant neoplasm of overlapping sites of bladder C67.8 Neuropathy G62.9 Anxiety F41.9 Hypocalcemia E83.51
--- NOTE | 2025-04-13 12:15 | PC.NURSE ---
Report given to Geri Suazowilliam. All questions answered. Pt to transfer after eatng lunch.
[2025-04-13] MEDS: piperacillin-tazobactam 2.25 GM in sodium chloride 0.9% (plus) 50 ML IV ×2 (13:08→21:46)
--- NOTE | 2025-04-13 13:50 | PC.NURSE ---
Pt transfered to [facility]. ALl belonings with pt. Pt settled into room 279-2, Oriented to room, all light and TV.
[2025-04-13 14:55] LABS: MRSA PCR OZH (swab) NOT DETECTED (Negative)
--- NOTE | 2025-04-13 15:15 | XRR_ITS ---
PROCEDURE INFORMATION: Exam: XR Right Elbow Exam date and time: 04/13/2025 5:07 PM Age: 70 years old Clinical indication: Elbow; Right; Lt lower ext pain after fall x 3 days ago; PT found unresponsive at [facility] TECHNIQUE: Imaging protocol: Radiologic exam of the right elbow. Views: 1 or 2 views. COMPARISON: No relevant prior studies available. FINDINGS: Bones/joints: No acute fracture or dislocation. Small well-corticated ossific density along the medial epicondyle likely represents a congenital/developmental variant or old fracture. A joint effusion is present. Soft tissues: Unremarkable. XR/XR elbow RT 2V [id number] IMPRESSION: While no distinct fracture is identified, a joint effusion is present, which raises concern for an occult fracture. Suggest follow-up radiographs in 7-10 days, as fractures typically become more apparent with healing. No joint malalignment.
[2025-04-14] VITALS (10 sets, daily range): BP systolic 119–137; BP diastolic 67–83; PULSE 66–102; RESP 14–20; TEMP 36.7–37.4; O2SAT 92–98
[2025-04-14] MEDS: heparin 5,000 unit/mL INJ 1 mL 5000 UNIT SUBCUT ×2 (01:51→12:30)
[2025-04-14 04:07] LABS: Hematocrit 33.0 % (37-53); Hemoglobin 10.40 g/dL (11.27-16.99); Mean Corpuscular HGB Conc 31.5 g/dL (30-55); Mean Corpuscular Hemoglobin 27.5 pg (27-33); Mean Corpuscular Volume 87.3 fl (82-101); Nucleated Red Blood Cells % 0 %; Platelet Count 147 10^3/cmm (157-399); Red Blood Count 3.78 10^6/uL (3.85-5.65); White Blood Count 3.77 10^3/uL (3.29-11.43)
[2025-04-14 04:29] LABS: Alanine Aminotransferase 34 U/L (0-41); Albumin Level 3.7 g/dL (3.5-5.2); Alkaline Phosphatase 94 U/L (40-130); Anion Gap 14.1 (5-19); Aspartate Amino Transferase 34 U/L (0-40); Blood Urea Nitrogen 48 mg/dL (8-23); Calcium 8.3 mg/dL (8.5-10.5); Carbon Dioxide 22 mmol/L (22-29); Chloride 108 mmol/L (98-107); Globulin 2.1 g/dL (1.3-4.6); Glucose 166 mg/dL (65-115); Magnesium 1.8 mg/dL (1.7-2.3); Osmolality Calculated 306 mOsm/kg (285-295); Potassium 4.1 mmol/L (3.5-5.1); Sodium 140 mmol/L (136-145); Total Protein 5.8 g/dL (6.6-8.7)
--- NOTE | 2025-04-14 05:22 | PM.PN ---
Subjective Subjective: no new c/o Medications: Reviewed: Yes Vitals/I&O/Wt Last Vital Signs Temp 98.7 F 04/14/25 01:00 Pulse 66 04/14/25 01:00 Resp 17 04/14/25 01:00 BP 119/74 04/14/25 01:00 Pulse Ox 95 04/14/25 01:00 O2 Del Method Room Air 04/13/25 17:00 04/13/25 04/13/25 04/14/25 14:59 22:59 06:59 Intake Total 750 / 750 1989 / 2740 220 / 2960 Output Total 1000 / 1000 2402 / 3402 Balance -250 / -250 -412 / -662 220 / -442 Weight last 48 hrs Weight 102.285 kg Weight 99.79 kg Physical Exam Narrative: Vital signs noted. Patient lying in bed no apparent distress. HEENT normocephalic atraumatic. Neck is supple Lungs are clear to auscultation. Heart is regular no rubs or gallops. Abdomen soft positive bowel sounds. Patient is a urostomy tube Extremities no edema Neuro awake alert oriented x 3 Data 04/14/25 03:27 04/14/25 03:27 Micro: Microbiology 04/12/25 10:26 Blood Culture - Preliminary Blood NEGATIVE TO DATE 04/12/25 10:31 Blood Culture - Preliminary Blood NEGATIVE TO DATE 04/12/25 09:35 Urine Culture - Preliminary Urine,Clean Catch Gram Negative Rods Gram Negative Rods#2 A&P Assessment and plan 1. ARNOLD (acute kidney injury): 70 year old male history of bladder cancer status post left nephrectomy cystectomy prostatectomy ileal conduit in right lower quadrant with urostomy. Patient has underlying obesity diabetes hypertension. 1. Sepsis: likely UTI , on broad-spectrum antibiotics 2. Acute kidney injury-abdominal CT scan reviewed he has a patent right-sided ileal conduit. It appears that he also has some stranding and edema by the right kidney with dilatation of right proximal ureter suspicious for pyelonephritis. -Urinalysis turbid 2+ protein 3+ blood 3+ leuk esterase 21-50 RBC, greater than 100 white cells 4+ bacteria. - Will check urine electrolytes microalbumin and protein and creatinine. - Cr improving - on bicarbonate drip - will DC 3. Patient has CKD in 2019 his creatinine 0.7 in 2021 creatinine is 1.2 since his nephrectomy in January 2025 his creatinine is 1.7 likely due to diabetes obesity hypertension nephrectomy 4. Increased anion gap metabolic acidosis , lactate normal , s/p bicarb drip 5. Hyponatremia improved 6. Anemia likely from nephrectomy Patient seen examined using telehealth used audiovisual equipment and the aid of a nurse. The patient consented to telehealth. Plan: See above. PDMP PDMP Reviewed: Not Reviewed Attestations Medical Necessity Statement*: per arshnc Coding Level of Care Code Acute Code for [facility] Fwd Diagnoses ARNOLD (acute kidney injury) N17.9
[2025-04-14] MEDS: piperacillin-tazobactam 2.25 GM in sodium chloride 0.9% (plus) 50 ML IV ×3 (05:25→21:38)
[2025-04-14] MEDS: pantoprazole 40 mg SDV IVP (05:26)
--- NOTE | 2025-04-14 08:41 | P.PN_ITS ---
Subjective 2 Subjective: the patient is doing well, no complains labs and diagnostics reviewed, currently improving Medications: Reviewed: Yes Vitals/I&O/Wt Last Vital Signs Temp 99.0 F 04/14/25 07:54 Pulse 86 04/14/25 07:54 Resp 15 04/14/25 07:54 BP 120/74 04/14/25 07:54 Pulse Ox 92 04/14/25 07:54 O2 Del Method Room Air 04/14/25 07:54 04/13/25 04/14/25 04/14/25 22:59 06:59 14:59 Intake Total 1989 1111.667 / 3851.667 Output Total 2402 / 3402 1650 / 5052 Balance -412 / -662 -538.333 / -1200.333 Weight last 48 hrs Weight 102.058 kg Weight 102.285 kg Weight 99.79 kg Physical Exam 2 Narrative: General: Alert and oriented, lying comfortably without any distress at room air HEENT: Normocephalic, atraumatic, grossly unremarkable exam Cardio: normal rate rhythm, normal S1-S2 without any murmurs, rubs, or gallops and JVD normal Respiratory: normal vascular breathing on auscultation without any wheezes, stridor, rhonchi GI: Abdomen soft, nontender, nondistended, normoactive bowel sounds present all 4 quadrants, having ileal conduit working with the bag attached and draining urine adequately, having midline scar below umbilicus of previous surgery Neuro: intact cranial nerves motor and sensory and cerebellar/coordination function without any focal neurological deficit Behavior: Appropriate and cooperative Extremities: Adequate palpable pulses and normal capillary refill, mild trace edema that is improving, having right elbow swelling with tenderness and hot to touch, ROM is also limited, Data 04/14/25 03:27 04/14/25 03:27 Micro: Microbiology 04/12/25 10:26 Blood Culture - Preliminary Blood NEGATIVE TO DATE 04/12/25 10:31 Blood Culture - Preliminary Blood NEGATIVE TO DATE 04/12/25 09:35 Urine Culture - Preliminary Urine,Clean Catch Gram Negative Rods Gram Negative Rods#2 A&P Assessment and plan 1. Severe sepsis: - 2 sets of blood cultures prelim negative - urine cultures growing gram negative rods and to follow the culture sensitivity, chest x-ray was unremarkable - Lactate series unremarkable and patient having adequate capillary refill. - Broad-spectrum antibiotics coverage with Zosyn renally adjusted 2.25 q8h, MRSA negative, discont vancomycin - cont maintenance fluids - Maintain MAP above 65 - Hold antihypertensives, beta-blockers or any blood pressure lowering medications - Ileal conduit care with adequate intake and output monitoring - Monitor renal functions 2. Pyelonephritis: CT abdomen pelvis showing features of pyelonephritis, Patient having severe ARNOLD/class III currently improving Nephrology consulted and onboard for further management Continue broad-spectrum antibiotics as mentioned above keep I/O charting, and monitor renal parameters 3. ARNOLD (acute kidney injury): Workup for ARNOLD, renal parameters improving Nephrology onboard, pt on bicarb drip for low bicarb and improved CT abdomen pelvis did not show any features of obstructive uropathy, urine studies reviewed cortisol am: normal PTH normal, low yaya, low Vit D, with chronic anemia, possibility of CKD element?, referral to nephrology at the time of discharge as well. Correction and monitoring of electrolytes Monitor I/O, daily renal paremeters 4. Elbow effusion: patient had right elbow pain, XR showed mild effusion and tender to touch ROM is limited MR rt elbow, ortho onbaord cont on abx adequate analgesia as per pain scale 5. Type 2 diabetes mellitus without complications: HbA1c: 6.3 TSH:normal Sliding scale insulin with further monitoring Continue home dose statins, fenofibrates 6. Malignant neoplasm of overlapping sites of bladder: Currently stable, no active/features of hematuria or any weight loss or B symptoms Patient is not following up with any urologist at the moment Urology referral at the time of discharge, he used to follow at [place] 7. Neuropathy: cont home dose pregabalin and adequate analgesia as per pain scale 8. Anxiety: Patient on sertraline, and lorazepam as needed for anxiety Resume sertraline and lorazepam as needed for anxiety Monitor for any symptoms 9. Hypocalcemia: corrected cont to monitor Plan: Diet: Renal nondialysis VTE: Heparin twice daily PDMP PDMP Reviewed: Not Reviewed Attestations 2 Medical Necessity Statement*: the patient will stay more than 2 midnights for the management of pyelonephritis and right elbow effusion Time Spent in Patient Care: 16 - 35 minutes (>than 50% of time sp ent in counselling and/or direct pt care on unit) . Other Attestations: Patient condition has been discussed at length with the patient/family, I have independently reviewed the chart labs imaging/diagnostics/EKG. the goals of care and code status with the patient/family/NOK/legal business center representative, and documented accordingly. The management has been done according to the current clinical condition with respect to patient goals of care and based on recommendations/guidelines. The patient/family has been informed about the current condition and further plan of care. Agreed with the plan of care and understood without any language barrier. Every effort was made to ensure accuracy of psychology clinician. Any obvious errors or omissions should be clarified with the author of the document. Coding Level of Care Code 09391 Diagnoses Severe sepsis A41.9; R65.20 Pyelonephritis N12 ARNOLD (acute kidney injury) N17.9 Elbow effusion M25.429 Type 2 diabetes mellitus without complications E11.9 Malignant neoplasm of overlapping sites of bladder C67.8 Neuropathy G62.9 Anxiety F41.9 Hypocalcemia E83.51
--- NOTE | 2025-04-14 12:50 | PM.CONSULT ---
Providers/Reason For Consult Consulting Physician/Specialty*: Hospitalist Reason for Consult*: Elbow swelling Attending Physician: Jessica Myrick MD Primary Care Provider: Jh Morejon History of Present Illness History of Present Illness Kip Henry is a 70 year old male with elbow swelling since Wednesday. Did not hit it just are getting worse. Review of Systems Const: Denies: fever(s) or chills Card: Denies: chest pain Resp: Denies: dyspnea GI: Denies: abdominal pain : Denies: dysuria, urinary frequency or urinary urgency Musc: Denies: neck pain or back pain Skin/Breast: Denies: rash Medications/Allergies Home Medications ?Medication ?Instructions ?Recorded ?Confirmed ?Last Taken ?Type atenolol 25 mg tablet 25 mg PO DAILY 08/08/19 04/12/25 04/11/25 History atorvastatin 40 mg tablet 40 mg PO DAILY 08/08/19 04/12/25 04/11/25 History omeprazole 20 mg capsule,delayed 20 mg PO DAILY 08/08/19 04/12/25 04/11/25 History release sertraline 100 mg tablet 100 mg PO BID 08/21/20 04/12/25 04/11/25 History albuterol sulfate 90 mcg/actuation 2 puff inhalation Q6H PRN 04/12/25 04/12/25 Unknown History aerosol inhaler (Ventolin HFA) Shortness Of Breath amlodipine 5 mg tablet 5 mg PO DAILY 04/12/25 04/12/25 04/11/25 History azithromycin 250 mg tablet See Rx Instructions .Route .COMPLEX 04/12/25 04/12/25 04/11/25 History fenofibrate nanocrystallized 48 mg 48 mg PO DAILY 04/12/25 04/12/25 04/11/25 History tablet lorazepam 1 mg tablet 1 mg PO Q8H PRN Anxiety 04/12/25 04/12/25 04/11/25 History metformin 500 mg tablet,extended 1,000 mg PO BID 04/12/25 04/12/25 04/11/25 History release 24 hr mirtazapine 30 mg tablet 30 mg PO BEDTIME 04/12/25 04/12/25 04/11/25 History oxycodone-acetaminophen 10 mg-325 1 tab PO Q8H PRN Severe Pain 04/12/25 04/12/25 Unknown History mg tablet (Scale Score 7-10) pregabalin 50 mg capsule 50 mg PO BEDTIME 04/12/25 04/12/25 04/11/25 History prochlorperazine maleate 10 mg 10 mg PO TID PRN Nausea 04/12/25 04/12/25 Unknown History tablet silver sulfadiazine 1 % topical 1 applic topical DAILY 04/12/25 04/12/25 Unknown History cream tizanidine 4 mg tablet 4 mg PO Q8H 04/12/25 04/12/25 04/11/25 History Allergies Allergy/AdvReac Type Severity Reaction Status Date / Time No Known Allergies Allergy Verified 11/16/24 20:54 Current Medications Generic Name Dose Route Start Last Admin Trade Name Freq PRN Reason Stop Dose Admin Hydrocodone Bitart/Acetaminophen 1 tab 04/12/25 13:04 04/13/25 21:45 Hydrocodone-Acetaminophen 5-325 Mg Tablet PO 1 tab Q4H PRN Administration MODERATE PAIN Atorvastatin Calcium 40 mg 04/13/25 05:00 04/14/25 05:26 Atorvastatin 40 Mg Tablet PO 40 mg DAILY KEV Administration Fenofibrate 48 mg 04/13/25 05:00 04/14/25 05:26 Fenofibrate 48 Mg Tablet PO 48 mg DAILY KEV Administration Heparin Sodium (Porcine) 5,000 unit 04/12/25 13:15 04/14/25 12:30 Heparin 5,000 Unit/Ml Inj 1 Ml SUBCUT 5,000 unit Q12H KEV Administration Piperacillin Sod/Tazobactam 50 mls @ 100 mls/hr 04/13/25 12:00 04/14/25 12:30 Sod 2.25 gm/ Sodium Chloride IV 100 mls/hr Q8H KEV Administration Protocol Insulin Human Lispro 0 unit 04/12/25 18:00 04/14/25 12:17 Insulin Lispro 100 Unit/1 Ml SUBCUT Not Given WM&BEDTIME KEV Protocol Lorazepam 1 mg 04/12/25 13:52 04/13/25 21:45 Lorazepam 1 Mg Tablet PO 1 mg Q8H PRN Administration ANXIETY Mirtazapine 30 mg 04/12/25 21:00 04/13/25 21:45 Mirtazapine 30 Mg Tablet PO 30 mg BEDTIME KEV Administration Morphine Sulfate 4 mg 04/12/25 13:04 04/12/25 19:55 Morphine 4 Mg/Ml Sdv 1 Ml IVP 4 mg Q4H PRN Administration SEVERE PAIN Pantoprazole Sodium 40 mg 04/13/25 05:00 04/14/25 05:26 Pantoprazole 40 Mg Sdv IVP 40 mg DAILY KEV Administration Pregabalin 50 mg 04/12/25 21:00 04/13/25 21:45 Pregabalin 50 Mg Capsule PO 50 mg BEDTIME KEV Administration Senna 17.2 mg 04/12/25 21:00 04/13/25 21:45 Sennosides 8.6 Mg Tablet PO 17.2 mg BEDTIME KEV Administration Sertraline HCl 100 mg 04/12/25 17:00 04/14/25 05:27 Sertraline 100 Mg Tablet PO 100 mg BID KEV Administration PFSH Acute PFSH: Medical History (Updated 04/14/25 @ 12:53 by Tim Jaquez DO) Type 2 diabetes mellitus without complications ED (erectile dysfunction) Testicular dysfunction Malignant neoplasm of overlapping sites of bladder Surgical History H/O transurethral destruction of bladder lesion Family History Family/Other Cancer CAD (coronary artery disease) Mother , at age 63 Brain tumor Father , at age 83 No problems noted. Social History Smoking and tobacco/nicotine status: current every day tobacco/nicotine user Alcohol intake: current Alcohol intake frequency: few times a month Substance/Drug Use: unknown Adopted: No Caregiver/support person: No Lives independently: No Household members: spouse Marital status: Current occupational status: disabled Current gender identity: Male Vitals/I&O/Wt Last Vital Signs Temp 99.3 F 04/14/25 12:00 Pulse 102 H 04/14/25 12:00 Resp 15 04/14/25 12:00 BP 134/74 04/14/25 12:00 Pulse Ox 94 04/14/25 12:00 O2 Del Method Room Air 04/14/25 12:00 04/13/25 04/14/25 04/14/25 22:59 06:59 14:59 Intake Total 1989 1111.667 / 3851.667 50 / 50 Output Total 240 / 3402 1650 / 5052 Balance -412 / -662 -538.333 / -1200.333 50 / 50 Weight last 48 hrs Weight 225 lb Weight 225 lb 8 oz Physical Exam Narrative: Patient is right elbow is somewhat swollen do not really appreciate any erythema Data 04/14/25 03:27 04/14/25 03:27 Micro: Microbiology 04/12/25 10:26 Blood Culture - Preliminary Blood NEGATIVE TO DATE 04/12/25 10:31 Blood Culture - Preliminary Blood NEGATIVE TO DATE 04/12/25 09:35 Urine Culture - Preliminary Urine,Clean Catch Gram Negative Rods Gram Negative Rods#2 A&P Assessment and plan 1. Effusion of right elbow: Patient has right elbow swelling Will get an MRI to evaluate. PDMP PDMP Reviewed: Not Reviewed Coding Level of Care Code Acute Code for [facility] Fwd Diagnoses Effusion of right elbow M25.421 Laterality: right
[2025-04-14] MEDS: HYDROcodone-acetaminophen 5-325 mg Tablet 1 TAB PO (14:24)
[2025-04-14] MEDS: oxyCODONE-APAP 10-325 mg Tablet 1 TAB PO (22:33)
[2025-04-15] VITALS (8 sets, daily range): BP systolic 103–138; BP diastolic 58–71; PULSE 63–80; RESP 16–18; TEMP 36.9–37.2; O2SAT 90–95
[2025-04-15] MEDS: heparin 5,000 unit/mL INJ 1 mL 5000 UNIT SUBCUT ×2 (01:07→12:08)
[2025-04-15 04:33] LABS: Hematocrit 30.2 % (37-53); Hemoglobin 8.90 g/dL (11.27-16.99); Mean Corpuscular HGB Conc 29.5 g/dL (30-55); Mean Corpuscular Hemoglobin 27.6 pg (27-33); Mean Corpuscular Volume 93.8 fl (82-101); Nucleated Red Blood Cells % 0 %; Platelet Count 140 10^3/cmm (157-399); Red Blood Count 3.22 10^6/uL (3.85-5.65); White Blood Count 4.52 10^3/uL (3.29-11.43)
[2025-04-15] MEDS: piperacillin-tazobactam 2.25 GM in sodium chloride 0.9% (plus) 50 ML IV ×2 (04:53→12:08)
[2025-04-15] MEDS: pantoprazole 40 mg SDV IVP (04:53)
[2025-04-15 05:02] LABS: Alanine Aminotransferase 24 U/L (0-41); Albumin Level 3.5 g/dL (3.5-5.2); Alkaline Phosphatase 77 U/L (40-130); Blood Urea Nitrogen 33 mg/dL (8-23); Calcium 8.0 mg/dL (8.5-10.5); Carbon Dioxide 25 mmol/L (22-29); Chloride 107 mmol/L (98-107); Globulin 2.1 g/dL (1.3-4.6); Glucose 103 mg/dL (65-115); Magnesium 1.5 mg/dL (1.7-2.3); Osmolality Calculated 302 mOsm/kg (285-295); Sodium 142 mmol/L (136-145); Total Protein 5.6 g/dL (6.6-8.7)
[2025-04-15 05:05] LABS: Anion Gap 14.1 (5-19); Aspartate Amino Transferase 23 U/L (0-40); Potassium 4.1 mmol/L (3.5-5.1)
--- NOTE | 2025-04-15 07:59 | P.PN_ITS ---
Documented by User: Day Meraz NP 04/15/25 12:42 Subjective 2 Subjective: Patient resting in bed this morning, on room air. Patient just finished breakfast. Patient states he is a 7/10 on pain scale with located of right elbow. He states nurse is bringing pain meds. MRI of right elbow scheduled for tomorrow. Vital signs and labs reviewed this a.m. Medications: Reviewed: Yes Vitals/I&O/Wt Last Vital Signs Temp 98.4 F 04/15/25 05:25 Pulse 70 04/15/25 07:35 Resp 18 04/15/25 07:35 BP 110/64 04/15/25 05:25 Pulse Ox 95 04/15/25 07:35 O2 Del Method Nasal Cannula 04/15/25 07:35 O2 Flow Rate 2 04/15/25 07:35 04/14/25 04/15/25 04/15/25 22:59 06:59 14:59 Intake Total 790 / 890 240 / 1130 50 / 50 Output Total 1650 / 1650 950 / 2600 Balance -860 / -760 -710 / -1470 50 / 50 Weight last 48 hrs Weight 102.058 kg Weight 102.058 kg Physical Exam 2 Narrative: General: A&O x4, lying comfortably in bed w/o distress, noted to be on at RA. HEENT: Normocephalic, atraumatic, grossly unremarkable exam Cardio: NSR, S1-S2 w/o any murmurs, rubs, or gallops. JVD normal Respiratory: Clear bilaterally on auscultation w/o any wheezes, stridor, rhonchi GI: Abdomen soft, non-tender, non-distended, normo-active bowel sounds present, ileal conduit working with the bag attached and draining urine adequately, midline scar noted below umbilicus of previous surgery Neuro: Intact cranial nerves motor and sensory and cerebellar/coordination function w/o any focal neurological deficit Behavior: Appropriate and cooperative Extremities: Adequate palpable pulses and normal capillary refill, right elbow swelling w/ tenderness and hot to touch, ROM is limited. Data 04/15/25 04:24 04/15/25 04:24 Micro: Microbiology 04/12/25 09:35 Urine Culture - Final Urine,Clean Catch Klebsiella pneumoniae Escherichia coli Providencia rettgeri A&P Assessment and plan 1. Severe sepsis: 2. Pyelonephritis: 3. ARNOLD (acute kidney injury): 4. Elbow effusion: 5. Type 2 diabetes mellitus without complications: 6. Malignant neoplasm of overlapping sites of bladder: 7. Neuropathy: 8. Anxiety: 9. Hypocalcemia: Plan: Severe Sepsis ? 04/12: Chest x-ray was unremarkable. Lactate series unremarkable ? MRSA negative ? Maintain MAP above 65 ? Hold antihypertensives, beta-blockers or any blood pressure lowering medications - Ileal conduit care with adequate intake and output monitoring ? 04/15: 2 sets of blood cultures NGTD ? Urine cultures reviewed and resulted on 04/14: Growth of 3 organisms ( Klebsiella, E. coli, providentia sp) sensitive to IV Zosyn. 04/15: Appreciate infectious disease consultation and management with Dr. Fuller. Will continue IV abx due to present right elbow effusion. Pyelonephritis ARNOLD ? Patient having severe ARNOLD/class III, improving. ? 04/15 labs- Apprentice Embalmer: 2.2, BUN: 33. Trending down. ? 04/14 Bicarbonate drip completed, per nephrology orders. ? CMP dly, monitor renal parameters. Correction and monitoring of electrolytes. ? 04/13 Labs: PTH normal, low yaya, low Vit D, with chronic anemia, possibility of CKD element? ? 04/12: CT abd/plevis reviewed and reported: Mild inflammatory stranding and edema about the RIGHT kidney with mild dilatation of the RIGHT ureter with surrounding induration suspicious for pyelonephritis. No visualized obstructing lesions. Ileal conduit appears patent. Prior postoperative changes LEFT nephrectomy with cystectomy and prostatectomy. Ileal conduit in the RIGHT lower quadrant ? Nephrology consulted for further management ? Continue broad-spectrum IV abx of Zoysn ? Measure I&Os q12hr ? Urine cultures reviewed and resulted on 04/14: Growth of 3 organisms ( Klebsiella, E. coli, providentia sp) sensitive to IV zosyn. Will continue IV abx due to present right elbow effusion. ? Outpatient referral to nephrology upon D/C. ? Beta-Hydroxybutyrate, pending Right Elbow pain, POA Elbow Effusion ? Patient c/o right elbow pain, ROM is limited ? 04/14: Right elbow XR reviewed and reports: No distinct fracture is identified, a joint effusion is present, which raises concern for an occult fracture. ? MR right elbow ordered, scheduled for 04/16/2025. ? Ortho consulted. ? Continue IV abx of Zoysn ? Adequate analgesia as per pain scale. IVP morphine 4 mg q4h, oxycodone 10-325 mg q8h ordered PRN DM2 ? HbA1c: 6.3, TSH: 1.9 on 04/12 ? Low-dose sliding scale insulin ? Blood glucose monitoring, ACHS ? Hypoglycemia protocol ? Continue home medication atorvastatin 40 mg PO dly, fenofibrates 48mg PO dly Malignant Neoplasm of overlapping sites of the bladder ? Currently stable, no active/features of hematuria or any weight loss or B symptoms ? Urology referral at the time of discharge, he used to follow at [facility] ? Continue home medication pregabalin 50mg dly and adequate analgesia as per pain scale Anxiety ? Resume home medication of sertraline 100mg PO BID, lorazepam 1mg PO q8hr PRN for anxiety Hypocalcemia, resloved ? Continue to monitor CODE STATUS: Full code GI prophylaxis: Protonix IVP 40 mg dly DVT prophylaxis: Heparin, subcu BID PDMP PDMP Reviewed: Not Reviewed Coding Level of Care Code 17424 Diagnoses Severe sepsis A41.9; R65.20 Pyelonephritis N12 ARNOLD (acute kidney injury) N17.9 Elbow effusion M25.429 Type 2 diabetes mellitus without complications E11.9 Malignant neoplasm of overlapping sites of bladder C67.8 Neuropathy G62.9 Anxiety F41.9 Hypocalcemia E83.51 Documented by User: Ashlee Campos NP 04/15/25 14:33 Subjective 2 Subjective: Patient resting in bed this morning, on room air. Patient just finished breakfast. Patient states he is a 7/10 on pain scale with located of right elbow. Patient denies new or worsening symptoms. He states nurse is bringing pain meds. MRI of right elbow scheduled for tomorrow. Vital signs and labs reviewed this a.m., hemoglobin 8.90, creatinine improved 2.20. Reached out to infectious disease Dr. Dwyer who graciously agrees for consultation and management of continued antibiotic therapy. Data 04/15/25 04:24 04/15/25 04:24 A&P Assessment and plan 1. Severe sepsis: 2. Pyelonephritis: 3. ARNOLD (acute kidney injury): 4. Elbow effusion: 5. Type 2 diabetes mellitus without complications: 6. Malignant neoplasm of overlapping sites of bladder: 7. Neuropathy: 8. Anxiety: 9. Hypocalcemia: PDMP PDMP Reviewed: Not Reviewed Attestations 2 Medical Necessity Statement*: the patient will stay more than 2 midnights for the management of pyelonephritis and right elbow effusion Coding Level of Care Code 45846 Diagnoses Severe sepsis A41.9; R65.20 Pyelonephritis N12 ARNOLD (acute kidney injury) N17.9 Elbow effusion M25.429 Type 2 diabetes mellitus without complications E11.9 Malignant neoplasm of overlapping sites of bladder C67.8 Neuropathy G62.9 Anxiety F41.9 Hypocalcemia E83.51
--- NOTE | 2025-04-15 15:16 | P.PN_ITS ---
Subjective 2 Subjective: no new c/o Medications: Reviewed: Yes Vitals/I&O/Wt Last Vital Signs Temp 98.7 F 04/15/25 11:40 Pulse 65 04/15/25 11:40 Resp 18 04/15/25 11:40 BP 120/71 04/15/25 11:40 Pulse Ox 93 04/15/25 11:40 O2 Del Method Room Air 04/15/25 11:40 O2 Flow Rate 2 04/15/25 07:35 04/15/25 04/15/25 04/15/25 06:59 14:59 22:59 Intake Total 240 / 1130 700 / 700 Output Total 950 / 2600 Balance -710 / -1470 700 / 700 Weight last 48 hrs Weight 102.058 kg Weight 102.058 kg Physical Exam 2 Narrative: Vital signs noted. Patient lying in bed no apparent distress. HEENT normocephalic atraumatic. Neck is supple Lungs are clear to auscultation. Heart is regular no rubs or gallops. Abdomen soft positive bowel sounds. Patient is a urostomy tube Extremities no edema Neuro awake alert oriented x 3 Data 04/16/25 03:11 04/16/25 03:11 Micro: Microbiology 04/12/25 09:35 Urine Culture - Final Urine,Clean Catch Klebsiella pneumoniae Escherichia coli Providencia rettgeri A&P Assessment and plan 1. ARNOLD (acute kidney injury): 70 year old male history of bladder cancer status post left nephrectomy cystectomy prostatectomy ileal conduit in right lower quadrant with urostomy. Patient has underlying obesity diabetes hypertension. 1. Sepsis: likely UTI , on broad-spectrum antibiotics 2. Acute kidney injury-abdominal CT scan reviewed he has a patent right-sided ileal conduit. It appears that he also has some stranding and edema by the right kidney with dilatation of right proximal ureter suspicious for pyelonephritis. -Urinalysis turbid 2+ protein 3+ blood 3+ leuk esterase 21-50 RBC, greater than 100 white cells 4+ bacteria. - Will check urine electrolytes microalbumin and protein and creatinine. - Cr improving 3. Patient has CKD in 2019 his creatinine 0.7 in 2021 creatinine is 1.2 since his nephrectomy in January 2025 his creatinine is 1.7 likely due to diabetes obesity hypertension nephrectomy 4. Increased anion gap metabolic acidosis , lactate normal , s/p bicarb drip 5. Hyponatremia improved 6. Anemia likely from nephrectomy Patient seen examined using telehealth used audiovisual equipment and the aid of a nurse. The patient consented to telehealth. Plan: See above. PDMP PDMP Reviewed: Not Reviewed Attestations 2 Medical Necessity Statement*: per chantel Coding Level of Care Code Acute Code for Chg Fwd Diagnoses ARNOLD (acute kidney injury) N17.9
[2025-04-15] MEDS: oxyCODONE-APAP 10-325 mg Tablet 1 TAB PO (16:29)
--- NOTE | 2025-04-15 18:58 | PM.CONSULT ---
Providers/Reason For Consult Consulting Physician/Specialty*: Shanthi Fuller MD/ Infectious Disease Reason for Consult*: UTI Requesting Physician: Ashlee Campos NP Attending Physician: Ashlee Campos NP Primary Care Provider: Jh Morejon History of Present Illness History of Present Illness Kip Henry is a 70 year old male With a past medical history of left ureteral cancer, high-grade TCCA, status post nephroureterectomy, currently with a urinary diversion and ileal conduit, type 2 diabetes mellitus, obesity presented to the emergency room on 04/12/2025 with fever and chills. He was diagnosed with sepsis upon admission and started treatment with empiric Zosyn and vancomycin, of which vancomycin has been discontinued. Diagnosis at the time was that of pyelonephritis. CT of the abdomen and pelvis without contrast showed mild inflammatory surrounding about the right kidney with mild dilatation of the right ureter with surrounding induration. Ileal conduit was patent. He is status post left nephrectomy with cystectomy and prostatectomy. Renal ultrasound performed on the same day did not show any evidence of hydronephrosis. No perinephric stranding or abscess. He presented with a creatinine of 6.3, previous known baseline at 1.7. During the course of this admission creatinine is downtrending at 2.2. Urine output currently over 1000 cc over the last 24 hours. Urine analysis showed 21-50 RBC, greater than 100 WBC, 3+ leukocyte esterase. Blood culture remains negative to date. Urine culture showing multiple organisms including Klebsiella pneumonia, E. coli, Providencia sensitive to ceftriaxone and Zosyn. Currently patient has swelling of the right elbow. States he noticed it on the same day as the onset of fever and chills however only after coming to the hospital. There is noted to be some bruising in the antecubital fossa and the area just proximal to where it from previous IVs. Review of chart shows that he has previously had left knee pain with acutely painful swollen left knee joint in 02/2023. Synovial fluid aspirate was negative for infection at that time. He was diagnosed with a Rao's cyst and inflammatory swelling. No crystals were found. Additionally he has had MRI in January 2025 due to acute pain and swelling of the right shoulder and left knee. With current treatment he is now afebrile. Tmax 101 Fahrenheit on 04/12/2025. No leukocytosis. Patient reports he has a presumptive diagnosis of gout as an outpatient however typically the swelling affects his left great toe. He states he gets gouty attacks typically once every month though they have been less frequent recently. He states he has been instructed to watch his diet to avoid gout flares. He does not appear to be any daily gout prophylaxis. Review of Systems General: Reports: 10 or more systems reviewed and unremarkable except in HPI and below Const: Denies: fever(s), chills or body aches Eyes: Denies: change in vision, blurry vision or photophobia ENMT: Reports: hoarseness; Denies: throat pain, enlarged tonsils, odynophagia or nasal congestion Card: Denies: chest pain, palpitations, irregular heart rhythm, edema, swelling of feet/ankles, lightheadedness, pre-syncope, dyspnea on exertion or orthopnea Resp: Denies: dyspnea, productive cough, non-productive cough, wheezing, stridor, pain on inspiration, change in phlegm color, hemoptysis or chest congestion GI: Denies: abdominal pain, nausea, vomiting, hematemesis, coffee ground emesis, dysphagia, heartburn, diarrhea, constipation, GI cramping, change in stool character, hematochezia or melena : Denies: flank pain, dysuria, urinary frequency, urinary urgency, urinary hesitancy or hematuria Musc: Denies: neck pain, back pain, extremity pain, joint swelling, joint warmth or deformity Neuro: Denies: headache(s), numbness in extremities, weakness in extremities, sensory changes, difficulty walking, frequent falls, dizziness, vertigo, behavioral changes, Slurred speech present or seizure-like activity Psych: Denies: anxiety, depression, suicidal ideation or homicidal ideation Endo: Denies: polyuria, polydipsia, tired all the time, cold intolerance or hot flashes Ted/Lymph: Denies: easy bruising or easy bleeding Medications/Allergies Home Medications ?Medication ?Instructions ?Recorded ?Confirmed ?Last Taken ?Type atenolol 25 mg tablet 25 mg PO DAILY 08/08/19 04/12/25 04/11/25 History atorvastatin 40 mg tablet 40 mg PO DAILY 08/08/19 04/12/25 04/11/25 History omeprazole 20 mg capsule,delayed 20 mg PO DAILY 08/08/19 04/12/25 04/11/25 History release sertraline 100 mg tablet 100 mg PO BID 08/21/20 04/12/25 04/11/25 History albuterol sulfate 90 mcg/actuation 2 puff inhalation Q6H PRN 04/12/25 04/12/25 Unknown History aerosol inhaler (Ventolin HFA) Shortness Of Breath amlodipine 5 mg tablet 5 mg PO DAILY 04/12/25 04/12/25 04/11/25 History azithromycin 250 mg tablet See Rx Instructions .Route .COMPLEX 04/12/25 04/12/25 04/11/25 History fenofibrate nanocrystallized 48 mg 48 mg PO DAILY 04/12/25 04/12/25 04/11/25 History tablet lorazepam 1 mg tablet 1 mg PO Q8H PRN Anxiety 04/12/25 04/12/25 04/11/25 History metformin 500 mg tablet,extended 1,000 mg PO BID 04/12/25 04/12/25 04/11/25 History release 24 hr mirtazapine 30 mg tablet 30 mg PO BEDTIME 04/12/25 04/12/25 04/11/25 History oxycodone-acetaminophen 10 mg-325 1 tab PO Q8H PRN Severe Pain 04/12/25 04/12/25 Unknown History mg tablet (Scale Score 7-10) pregabalin 50 mg capsule 50 mg PO BEDTIME 04/12/25 04/12/25 04/11/25 History prochlorperazine maleate 10 mg 10 mg PO TID PRN Nausea 04/12/25 04/12/25 Unknown History tablet silver sulfadiazine 1 % topical 1 applic topical DAILY 04/12/25 04/12/25 Unknown History cream tizanidine 4 mg tablet 4 mg PO Q8H 04/12/25 04/12/25 04/11/25 History Allergies Allergy/AdvReac Type Severity Reaction Status Date / Time No Known Allergies Allergy Verified 11/16/24 20:54 Current Medications Generic Name Dose Route Start Last Admin Trade Name Freq PRN Reason Stop Dose Admin Albuterol Sulfate 2.5 mg 04/14/25 20:47 04/14/25 21:17 Albuterol 2.5 Mg/0.5 Ml Neb INHALATION 2.5 mg Q6H.RESP PRN Administration WHEEZING Atorvastatin Calcium 40 mg 04/13/25 05:00 04/15/25 04:53 Atorvastatin 40 Mg Tablet PO 40 mg DAILY KEV Administration Fenofibrate 48 mg 04/13/25 05:00 04/15/25 04:53 Fenofibrate 48 Mg Tablet PO 48 mg DAILY KEV Administration Heparin Sodium (Porcine) 5,000 unit 04/12/25 13:15 04/15/25 12:08 Heparin 5,000 Unit/Ml Inj 1 Ml SUBCUT 5,000 unit Q12H KEV Administration Piperacillin Sod/Tazobactam 50 mls @ 100 mls/hr 04/13/25 12:00 04/15/25 13:12 Sod 2.25 gm/ Sodium Chloride IV Infused Q8H KEV Infusion Protocol Insulin Human Lispro 0 unit 04/12/25 18:00 04/15/25 16:32 Insulin Lispro 100 Unit/1 Ml SUBCUT Not Given WM&BEDTIME KEV Protocol Lorazepam 1 mg 04/12/25 13:52 04/13/25 21:45 Lorazepam 1 Mg Tablet PO 1 mg Q8H PRN Administration ANXIETY Mirtazapine 30 mg 04/12/25 21:00 04/14/25 21:39 Mirtazapine 30 Mg Tablet PO 30 mg BEDTIME KEV Administration Morphine Sulfate 4 mg 04/12/25 13:04 04/12/25 19:55 Morphine 4 Mg/Ml Sdv 1 Ml IVP 4 mg Q4H PRN Administration SEVERE PAIN Oxycodone/Acetaminophen 1 tab 04/14/25 14:39 04/15/25 16:29 Oxycodone-Apap 10-325 Mg Tablet PO 1 tab Q8H PRN Administration MODERATE PAIN Pantoprazole Sodium 40 mg 04/13/25 05:00 04/15/25 04:53 Pantoprazole 40 Mg Sdv IVP 40 mg DAILY KEV Administration Pregabalin 50 mg 04/12/25 21:00 04/14/25 21:38 Pregabalin 50 Mg Capsule PO 50 mg BEDTIME KEV Administration Senna 17.2 mg 04/12/25 21:00 04/14/25 21:38 Sennosides 8.6 Mg Tablet PO 17.2 mg BEDTIME KEV Administration Sertraline HCl 100 mg 04/12/25 17:00 04/15/25 16:29 Sertraline 100 Mg Tablet PO 100 mg BID KEV Administration Additional Medication Information ceftriaxone 1 g iv on 04/12 Zosyn 04/12- current Vancomycin 04/12 PFSH Acute PFSH: Medical History (Updated 04/15/25 @ 19:29 by Shanthi Fuller MD) Type 2 diabetes mellitus without complications ED (erectile dysfunction) Testicular dysfunction Malignant neoplasm of overlapping sites of bladder Surgical History H/O transurethral destruction of bladder lesion Family History Family/Other Cancer CAD (coronary artery disease) Mother , at age 63 Brain tumor Father , at age 83 No problems noted. Social History Smoking and tobacco/nicotine status: current every day tobacco/nicotine user Alcohol intake: current Alcohol intake frequency: few times a month Substance/Drug Use: unknown Adopted: No Caregiver/support person: No Lives independently: No Household members: spouse Marital status: Current occupational status: disabled Current gender identity: Male Vitals/I&O/Wt Last Vital Signs Temp 98.8 F 04/15/25 16:00 Pulse 80 04/15/25 16:00 Resp 18 04/15/25 16:29 BP 128/58 04/15/25 16:00 Pulse Ox 93 04/15/25 16:00 O2 Del Method Room Air 04/15/25 16:00 O2 Flow Rate 2 04/15/25 07:35 04/15/25 04/15/25 04/15/25 06:59 14:59 22:59 Intake Total 240 / 1130 700 / 700 360 / 1060 Output Total 950 / 2600 Balance -710 / -1470 700 / 700 360 / 1060 Weight last 48 hrs Weight 102.058 kg Weight 102.058 kg Physical Exam Narrative: General: No acute distress, AO x3 HEENT: PERRLA, pupils bilaterally equal and reactive, pallors not present Chest: Normal vesicular breath sounds, no added sounds, equal good air entry bilaterally CVS: S1-S2 regular, no murmurs, no tachycardia, no gallops, no rubs Abdomen: Soft, nontender, no organomegaly, bowel sounds present Neuro: No focal deficits, no facial deformity, AO x3, power 5/5 in all limbs Extremities: Right elbow swollen with painful range of motion, erythema and swelling noted. Additionally noted some hematoma in the antecubital fossa in the area just proximal to it. Data 04/15/25 04:24 04/15/25 04:24 Other Labs: Radiology Impressions Chest X-Ray 04/12/25 09:02 IMPRESSION: No significant chest abnormality. Abdomen/Pelvis CT 04/12/25 09:22 IMPRESSION: 1. Mild inflammatory stranding and edema about the RIGHT kidney with mild dilatation of the RIGHT ureter with surrounding induration suspicious for pyelonephritis. No visualized obstructing lesions. 2. Ileal conduit appears patent. 3. Prior postoperative changes LEFT nephrectomy with cystectomy and prostatectomy. Ileal conduit in the RIGHT lower quadrant. Notified Mike Randall DO at 04/12/2025 10:26 AM. Renal Ultrasound 04/12/25 13:47 IMPRESSION: 1. Normal RIGHT kidney. No hydronephrosis. No perinephric stranding or abscess. 2. Status post LEFT nephrectomy and cystectomy. Elbow X-Ray 04/13/25 15:15 IMPRESSION: While no distinct fracture is identified, a joint effusion is present, which raises concern for an occult fracture. Suggest follow-up radiographs in 7-10 days, as fractures typically become more apparent with healing. No joint malalignment. Laboratory Results WBC 4.52 10^3/uL (3.29-11.43) 04/15/25 04:24 RBC 3.22 10^6/uL (3.85-5.65) L 04/15/25 04:24 Hgb 8.90 g/dL (11.27-16.99) L 04/15/25 04:24 Hct 30.2 % (37-53) L 04/15/25 04:24 MCV 93.8 fl (82-101) 04/15/25 04:24 MCH 27.6 pg (27-33) 04/15/25 04:24 MCHC 29.5 g/dL (30-55) L D 04/15/25 04:24 RDW 15.3 % (12.1-15.1) H 04/15/25 04:24 Plt Count 140 10^3/cmm (157-399) L 04/15/25 04:24 MPV 11.1 fL (7.4-10.4) H 04/15/25 04:24 Neut % (Auto) 54.4 % 04/15/25 04:24 Lymph % (Auto) 32.3 % 04/15/25 04:24 Coffee % (Auto) 10.2 % 04/15/25 04:24 Eos % (Auto) 1.8 % 04/15/25 04:24 Baso % (Auto) 1.1 % 04/15/25 04:24 Neut # (Auto) 2.46 10^3/uL (1.8-7.7) 04/15/25 04:24 Lymph # (Auto) 1.5 10^3/uL (0.8-4.8) 04/15/25 04:24 Coffee # (Auto) 0.5 10^3/uL (0.2-0.9) 04/15/25 04:24 Eos # (Auto) 0.1 10^3/uL (0.0-0.8) 04/15/25 04:24 Baso # (Auto) 0.1 10^3/uL (0.0-0.1) 04/15/25 04:24 Nucleated RBC % (auto) 0 % 04/15/25 04:24 Nucleated RBCs # 0.0 /100WBC 04/15/25 04:24 Specimen Type Arterial 04/12/25 15:45 Sample Site Radial, right 04/12/25 15:45 ABG pH 7.27 (7.35-7.45) L 04/12/25 15:45 ABG pCO2 29.7 mmHg (35-45) L 04/12/25 15:45 ABG pO2 76.2 mmHg (80.0-100.0) L 04/12/25 15:45 ABG PO2/FiO2 Ratio 362 04/12/25 15:45 ABG HCO3 13.6 mmol/L (22-26) L 04/12/25 15:45 ABG O2 Saturation 93.5 04/12/25 15:45 ABG Base Excess -12.1 mmol/L (-2.0-2.0) L 04/12/25 15:45 Ismael Test Pos 04/12/25 15:45 A-a O2 Gradient 4.6 mmHg (5-10) L 04/12/25 15:45 Hematocrit 31.6 % (42-52) L 04/12/25 15:45 Hgb O2 Saturation 92.1 % (95-100) L 04/12/25 15:45 Carboxyhemoglobin < 0.3 %THgb (0.4-20.1) L 04/12/25 15:45 Methemoglobin 1.3 % (0.4-1.5) 04/12/25 15:45 Total Hemoglobin 10.3 g/dL (14-18) L 04/12/25 15:45 Sodium 137.0 mmol/L (131-143) 04/12/25 15:45 Potassium 4.2 mmol/L (3.5-5.0) 04/12/25 15:45 Glucose 103.0 mg/dL (70-115) 04/12/25 15:45 Ionized Calcium 1.1 mmol/L (1.1-1.4) 04/12/25 15:45 O2 Delivery Device Room air 04/12/25 15:45 FiO2 21.0 % 04/12/25 15:45 Guest Services ID Broma 04/12/25 15:45 Sodium 142 mmol/L (136-145) 04/15/25 04:24 Potassium 4.1 mmol/L (3.5-5.1) 04/15/25 04:24 Chloride 107 mmol/L (98-107) 04/15/25 04:24 Carbon Dioxide 25 mmol/L (22-29) 04/15/25 04:24 Anion Gap 14.1 (5-19) 04/15/25 04:24 BUN 33 mg/dL (8-23) H 04/15/25 04:24 Creatinine 2.2 mg/dL (0.7-1.2) H 04/15/25 04:24 GFR Calculation 29.9 mL/min (90-130) L 04/15/25 04:24 Glucose 103 mg/dL (65-115) 04/15/25 04:24 POC Glucose 140 mg/dL (70-110) H 04/15/25 16:21 Estimat Average Glucose 134 04/12/25 08:45 Hemoglobin A1c 6.3 % (4.0-6.0) H 04/12/25 08:45 Calculated Osmolality 302 mOsm/kg (285-295) H 04/15/25 04:24 Lactic Acid 1.1 mmol/L (0.5-2.2) 04/12/25 08:45 Lactate 0.5 mmol/L (0.5-2.2) 04/12/25 16:27 Uric Acid 9.3 mg/dL (3.4-7.0) H 04/12/25 08:45 Calcium 8.0 mg/dL (8.5-10.5) L 04/15/25 04:24 Phosphorus 3.0 mg/dL (2.5-4.5) 04/15/25 04:24 Magnesium 1.5 mg/dL (1.7-2.3) L 04/15/25 04:24 Iron 22 ug/dL (59-158) L 04/13/25 04:27 TIBC 225 mcg/dl 04/13/25 04:27 % Saturation 9.7 % (20-50) L 04/13/25 04:27 Unsat Iron Binding 203 ug/dL (112-347) 04/13/25 04:27 Total Bilirubin 0.4 mg/dL (0.15-1.2) 04/15/25 04:24 AST 23 U/L (0-40) 04/15/25 04:24 ALT 24 U/L (0-41) 04/15/25 04:24 Alkaline Phosphatase 77 U/L (40-130) 04/15/25 04:24 Total Protein 5.6 g/dL (6.6-8.7) L 04/15/25 04:24 Albumin 3.5 g/dL (3.5-5.2) 04/15/25 04:24 Globulin 2.1 g/dL (1.3-4.6) 04/15/25 04:24 25-OH Vitamin D Total 10 ng/mL (30-100) L 04/13/25 04:27 TSH 1.19 uIU/mL (0.27-4.20) 04/12/25 08:45 PTH Intact 52.5 pg/mL (15-65) 04/13/25 04:27 Calcium (PTH Intact) 8.3 mg/dL (8.5-10.5) L 04/13/25 04:27 Random Cortisol 14.13 ug/dL (2.47-19.5) 04/14/25 03:27 Urine Color Yellow (Yellow) 04/12/25 09:35 Urine Appearance Turbid (CLEAR) A 04/12/25 09:35 Urine pH 7.0 (5-7) 04/12/25 09:35 Ur Specific [place] 1.016 (1.005-1.030) 04/12/25 09:35 Urine Protein 2+ (Negative) A 04/12/25 09:35 Urine Glucose (UA) Negative (Normal) 04/12/25 09:35 Urine Ketones Trace (Negative) 04/12/25 09:35 Urine Blood 3+ (Negative) A 04/12/25 09:35 Urine Nitrate Negative (Negative) 04/12/25 09:35 Urine Bilirubin Negative (Negative) 04/12/25 09:35 Urine Urobilinogen 1.0 mg/dL (Negative) 04/12/25 09:35 Ur Leukocyte Esterase 3+ (Negative) A 04/12/25 09:35 Urine RBC 21-50 /hpf (0-2) H 04/12/25 09:35 Urine WBC >100 /hpf (0-5) H 04/12/25 09:35 Ur Squamous Epith Cells 0-5 /hpf (0-5) 04/12/25 09:35 Amorphous Sediment Not Reportable 04/12/25 09:35 Urine Bacteria 4+ /hpf (NONE) H 04/12/25 09:35 Hyaline Casts 22.33 /lpf 04/12/25 09:35 Ur Oval Fat Bodies Rare /hpf 04/12/25 09:35 Ur Random Microalbumin 15 ug/dL (0-20) 04/12/25 17:15 U Random Total Protein 47 mg/dL 04/12/25 17:15 Ur Random Sodium 73 mmol/L 04/12/25 17:15 Ur Random Potassium 13 mmol/L 04/12/25 17:15 Ur Random Chloride 56 mmol/L 04/12/25 17:15 Urine Creatinine 74 mg/dL (39-259) 04/12/25 17:15 Urine Creatinine 75 mg/dL (39-259) 04/12/25 17:15 Microalb/Creat Ratio 200 mg/dL (0-20) H 04/12/25 17:15 Nasal MRSA (PCR) Not detected (Negative) 04/13/25 13:25 Random Vancomycin 6.9 ug/mL (20.0-40.0) L 04/13/25 16:09 Serum Ketones Negative (Negative) 04/12/25 08:45 Hepatitis C Antibody Non-reactive (Nonreactive) 04/12/25 16:27 Influenza A (PCR) Negative (Negative) 04/12/25 09:16 Influenza Type B (PCR) Negative (Negative) 04/12/25 09:16 RSV (PCR) Negative (Negative) 04/12/25 09:16 SARS-CoV-2 (PCR) Negative (Negative) 04/12/25 09:16 Micro: Microbiology 04/12/25 09:35 Urine Culture - Final Urine,Clean Catch Klebsiella pneumoniae Escherichia coli Providencia rettgeri NAME: Kip Henry LOC: [facility] #: [id number] AGE/SX: 70/M ROOM: [facility] RE04/12/[address]: Ashlee Campos : 1955 BED: 2 DIS: FAX #: STATUS: ADM IN TLOC: Spec #: [id number] Claudine: 04/12/25 Status: COMP Req #: [id number] Recd: 04/12/[address]: Mike Randall DO Src: Urine CC SpDesc: Ordered: Procedure Result Verified Site Urine Culture Final 04/14/25-4174 Organism 1 Klebsiella pneumoniae [place] Count >100,000 CFU/ml Organism 2 Escherichia coli [place] Count >100,000 CFU/ml Organism 3 Providencia rettgeri [place] Count >100,000 CFU/ml DAY 2 Kleb pneum E coli Pro rettge M.I.C. RX M.I.C. RX M.I.C. RX --------- ------ --------- ------ --------- ------ * Amikacin <=16 S <=16 S <=16 S * Amoxicillin/Clavulanate <=8/4 S <=8/4 S * Ampicillin >16 R * Ampicillin/Sulbactam <=8/4 S >16/8 R <=8/4 S * Aztreonam <=4 S <=4 S 8 S * Cefepime <=8 S <=8 S <=8 S * Ceftriaxone <=1 S <=1 S <=1 S * Cefuroxime <=4 S 8 S 8 S * Ciprofloxacin <=1 S >2 R <=1 S * Gentamicin <=2 S <=2 S <=2 S * Imipenem <=1 S <=1 S 2 I * Levofloxacin <=2 S >4 R <=2 S * Nitrofurantoin <=32 S <=32 S * Tetracycline <=4 S >8 R * Trimethoprim/Sulfamethoxazole <=2/38 S >2/38 R <=2/38 S * Piperacillin/Tazobactam <=16 S <=16 S <=16 S A&P Assessment and plan 1. Fever: Patient admitted to the hospital on 04/12/2025 which shows, diagnosed with sepsis. He was diagnosed with pyelonephritis at the time. Additionally has a right elbow swelling which started on the same day as symptoms. 2. UTI (urinary tract infection): Patient has an ileal conduit. He denies any obstruction prior to the onset of symptoms.States urine was high colored but draining appropriately Polymicrobes are isolated from urine culture, however not unexpected given the ileal conduit with surgery in 2022. Difficult to distinguish colonization from UTI at this time given clinical symptoms of fever and chills. CT abdomen pelvis and renal ultrasound without any obstructive pathology. Discontinue piperacillin/tazobactam, changed to ceftriaxone 1 g IV every 24 hours given sensitivity 3. Effusion of right elbow: Noted to have an effusion of the right elbow. MRI of the elbow has been ordered for further diagnostics. Differentials include septic arthritis versus crystal arthropathy versus inflammatory arthritis. Patient reports a history of gout with recurrent flares typically affecting the toes. Cannot rule out possibility of acute gout flare being the cause of his symptoms. If MRI shows effusion, recommend synovial fluid aspiration for cell count crystals Gram stain and culture. Start treatment for presumptive gout flare with prednisone 40 mg twice daily and evaluate for improvement in symptoms. NSAIDs and colchicine are being avoided related to ARNOLD. He is on appropriate PUD prophylaxis currently Check uric acid level 4. ARNOLD (acute kidney injury): Currently improving creatinine down to 2.2 now. Plan: Await MRI, Ortho assessment for synovitis fluid aspiration. If no evidence of joint infection, patient can likely be discharged on oral antibiotics for possible UTI. If synovial fluid aspiration does indeed confirm joint infection and will need IV antibiotics instead. will follow PDMP PDMP Reviewed: Not Reviewed Consult Attestations Medical Necessity Statement: Per admitting Coding Level of Care Code Acute Code for Chg Fwd High MDM includes number and complexity of problems actively addressed during encounter, amount and/or complexity of data reviewed/ordered and described risk of complication, morbidity or mortality of management as documented Diagnoses Fever R50.9 UTI (urinary tract infection) N39.0 Effusion of right elbow M25.421 Laterality: right ARNOLD (acute kidney injury) N17.9
[2025-04-15] MEDS: cefTRIAXone 1,000 mg SDV 1000 MG IVP (21:44)
[2025-04-16] VITALS (8 sets, daily range): BP systolic 108–121; BP diastolic 62–76; PULSE 51–66; RESP 16–18; TEMP 36.5–37.2; O2SAT 92–98
[2025-04-16] MEDS: heparin 5,000 unit/mL INJ 1 mL 5000 UNIT SUBCUT ×2 (03:04→13:25)
[2025-04-16 03:50] LABS: Hematocrit 32.7 % (37-53); Hemoglobin 9.80 g/dL (11.27-16.99); Mean Corpuscular HGB Conc 30.0 g/dL (30-55); Mean Corpuscular Hemoglobin 27.5 pg (27-33); Mean Corpuscular Volume 91.6 fl (82-101); Nucleated Red Blood Cells % 0 %; Platelet Count 176 10^3/cmm (157-399); Red Blood Count 3.57 10^6/uL (3.85-5.65); White Blood Count 5.05 10^3/uL (3.29-11.43)
[2025-04-16 04:15] LABS: Alanine Aminotransferase 23 U/L (0-41); Albumin Level 3.2 g/dL (3.5-5.2); Alkaline Phosphatase 80 U/L (40-130); Anion Gap 15.7 (5-19); Aspartate Amino Transferase 23 U/L (0-40); Blood Urea Nitrogen 29 mg/dL (8-23); Calcium 8.7 mg/dL (8.5-10.5); Carbon Dioxide 21 mmol/L (22-29); Chloride 106 mmol/L (98-107); Creatinine Clr Calc Pharmacy 47.0129; Globulin 3.4 g/dL (1.3-4.6); Glucose 158 mg/dL (65-115); Magnesium 1.5 mg/dL (1.7-2.3); Osmolality Calculated 295 mOsm/kg (285-295); Potassium 4.7 mmol/L (3.5-5.1); Sodium 138 mmol/L (136-145); Total Protein 6.6 g/dL (6.6-8.7); Uric Acid 5.5 mg/dL (3.4-7.0)
[2025-04-16] MEDS: pantoprazole 40 mg SDV IVP (04:45)
--- NOTE | 2025-04-16 07:00 | MR_ITS ---
WS: [id number] EXAMINATION: MR elbow RT wo con* [id number] ORDER DATE: 04/16/2025 12:30 PM COMPARISON: None. HISTORY: Effusion of right elbow CONTRAST: None. TECHNIQUE: Axial T1, axial T2 fat sat, coronal T1, coronal proton density fat sat, coronal STIR, sagittal proton density fat sat, and axial fat sat 3D performed. FINDINGS: Moderate joint effusion. No evidence of osteomyelitis. Distal triceps appears intact. Normal radial head. Normal olecranon. Normal coronoid process. No acute fractures. Mild degenerative arthritis. Mild diffuse soft tissue edema. Recommend correlation for cellulitis. No drainable abscess or fluid collection. No visualized acute fractures. MR/MR elbow RT wo con* [id number] IMPRESSION: 1. Moderate joint effusion. No evidence of osteomyelitis. 2. No visualized fractures. 3. Diffuse soft tissue edema. Recommend correlation for cellulitis.
--- NOTE | 2025-04-16 07:03 | P.PN_ITS ---
Documented by User: Day Meraz NP 04/16/25 12:08 Subjective 2 Subjective: Patient resting in bed, on room air. He reports continued pain to his right elbow. Discussed plan of care today involving scheduled MRI this morning, and scheduled venous duplex of right upper extremity. Vital signs and labs reviewed this a.m. Hgb: 9.80, Business Center Attendant: 1.8 , and uric acid level: 5.5. Vitals/I&O/Wt Last Vital Signs Temp 98.8 F 04/16/25 04:00 Pulse 62 04/16/25 04:00 Resp 16 04/16/25 04:00 BP 110/76 04/16/25 04:00 Pulse Ox 98 04/16/25 04:00 O2 Del Method Room Air 04/16/25 04:00 O2 Flow Rate 2 04/15/25 07:35 04/15/25 04/16/25 04/16/25 22:59 06:59 14:59 Intake Total 480 / 1180 Balance 480 / 1180 Weight last 48 hrs Weight 103.447 kg Weight 102.058 kg Physical Exam 2 Narrative: General: A&O x4, lying comfortably in bed, on RA. HEENT: Normocephalic, atraumatic, grossly unremarkable exam Cardio: NSR, S1-S2 w/o any murmurs, rubs, or gallops. JVD normal Respiratory: Clear bilaterally on auscultation w/o any wheezes, stridor, rhonchi GI: Abdomen soft, non-tender, non-distended, normo-active bowel sounds present, ileal conduit working with the bag attached and draining urine adequately, midline scar noted below umbilicus of previous surgery Neuro: Intact cranial nerves motor and sensory and cerebellar/coordination function w/o any focal neurological deficit Behavior: Appropriate and cooperative Extremities: Adequate palpable pulses and normal capillary refill, right elbow swelling w/ tenderness and hot to touch, ROM is limited. Data 04/16/25 03:11 04/16/25 03:11 A&P Assessment and plan 1. Severe sepsis: 2. Pyelonephritis: 3. RANOLD (acute kidney injury): 4. Elbow effusion: 5. Type 2 diabetes mellitus without complications: 6. Malignant neoplasm of overlapping sites of bladder: 7. Neuropathy: 8. Anxiety: 9. Hypocalcemia: Plan: Severe Sepsis ? 04/12: Chest x-ray was unremarkable. Lactate series unremarkable ? MRSA negative ? Maintain MAP above 65 ? Hold antihypertensives, beta-blockers or any blood pressure lowering medications - Ileal conduit care with adequate intake and output monitoring ? 04/16: 2 sets of blood cultures NGTD ? Urine cultures reviewed and resulted on 04/14: Growth of 3 organisms ( Klebsiella, E. coli, providentia sp) ? 04/15: Appreciate infectious disease consultation and management with Dr. Fuller. ? IV abx Zoysn d/c 04/15. Abx switched to IV Rocephin per ID recommendations on 04/15 Pyelonephritis ARNOLD ? Patient having severe ARNOLD/class III, improving. ? 04/16 labs- Business Center Attendant: 1.8, BUN:29. Trending down. ? CMP dly, monitor renal parameters. Correction and monitoring of electrolytes. ? 04/12: CT abd/plevis reviewed and reported: Mild inflammatory stranding and edema about the RIGHT kidney with mild dilatation of the RIGHT ureter with surrounding induration suspicious for pyelonephritis. No visualized obstructing lesions. Ileal conduit appears patent. Prior postoperative changes LEFT nephrectomy with cystectomy and prostatectomy. Ileal conduit in the RIGHT lower quadrant ? Nephrology consulted for further management ? Continue broad-spectrum IV abx of Zoysn ? Measure I&Os q12hr ? Outpatient referral to nephrology upon D/C. ? Beta-Hydroxybutyrate, pending Right Elbow pain, POA Elbow Effusion ? Patient c/o right elbow pain, ROM is limited ? 04/14: Right elbow XR reviewed and reports: No distinct fracture is identified, a joint effusion is present, which raises concern for an occult fracture. ? MR right elbow ordered, scheduled for 04/16/2025. ? Ortho consulted. ? IV abx Zoysn d/c 04/15. Abx switched to IV Rocephin per ID recommendations on 04/15 ? Uric acid level ordered per ID to r/o gout and reviewed resulted: 5.5mg/dL on 04/16 ? Upper right extremity venous duplex ordered 04/16, pending per ID r/o dvt. ? Adequate analgesia as per pain scale. IVP morphine 4 mg q4h, oxycodone 10-325 mg q8h ordered PRN DM2 ? HbA1c: 6.3, TSH: 1.9 on 04/12 ? Low-dose sliding scale insulin ? Blood glucose monitoring, ACHS ? Hypoglycemia protocol ? Continue home medication atorvastatin 40 mg PO dly, fenofibrates 48mg PO dly Malignant Neoplasm of overlapping sites of the bladder ? Currently stable, no active/features of hematuria or any weight loss or B symptoms ? Urology referral at the time of discharge, he used to follow at [facility] ? Continue home medication pregabalin 50mg dly and adequate analgesia as per pain scale Anxiety ? Resume home medication of sertraline 100mg PO BID, lorazepam 1mg PO q8hr PRN for anxiety Hypocalcemia, resloved ? Continue to monitor CODE STATUS: Full code GI prophylaxis: Protonix IVP 40 mg dly DVT prophylaxis: Heparin, subcu BID PDMP PDMP Reviewed: Not Reviewed Attestations 2 Medical Necessity Statement*: the patient will stay more than 2 midnights for the management of pyelonephritis and right elbow effusion Coding Level of Care Code Acute Code for Chg Fwd Diagnoses Severe sepsis A41.9; R65.20 Pyelonephritis N12 ARNOLD (acute kidney injury) N17.9 Elbow effusion M25.429 Type 2 diabetes mellitus without complications E11.9 Malignant neoplasm of overlapping sites of bladder C67.8 Neuropathy G62.9 Anxiety F41.9 Hypocalcemia E83.51 Documented by User: Ashlee Campos NP 04/16/25 12:17 Subjective 2 Subjective: Patient resting in bed, on room air. He reports continued pain to his right elbow. Discussed plan of care today involving scheduled MRI this morning, and scheduled venous duplex of right upper extremity. Vital signs and labs reviewed this a.m. Hgb: 9.80, Business Center Attendant: 1.8 , and uric acid level: 5.5. Magnesium 1.5, replenishing this morning. Will continue IV antibiotic therapy, await MRI results and further plans before transitioning to oral antibiotics. Working with case management and patient on discharge plans, still to be determined. Data 04/16/25 03:11 04/16/25 03:11 A&P Assessment and plan 1. Severe sepsis: 2. Pyelonephritis: 3. ARNOLD (acute kidney injury): 4. Elbow effusion: 5. Type 2 diabetes mellitus without complications: 6. Malignant neoplasm of overlapping sites of bladder: 7. Neuropathy: 8. Anxiety: 9. Hypocalcemia: PDMP PDMP Reviewed: Not Reviewed Coding Level of Care Code Acute Code for [facility] Fwd Diagnoses Severe sepsis A41.9; R65.20 Pyelonephritis N12 ARNOLD (acute kidney injury) N17.9 Elbow effusion M25.429 Type 2 diabetes mellitus without complications E11.9 Malignant neoplasm of overlapping sites of bladder C67.8 Neuropathy G62.9 Anxiety F41.9 Hypocalcemia E83.51
[2025-04-16] MEDS: cefTRIAXone 1,000 mg SDV 1000 MG IVP ×2 (08:05→19:36)
--- NOTE | 2025-04-16 09:20 | P.PN_ITS ---
Subjective 2 Subjective: no new complaints awaiting MRI Medications: Reviewed: Yes Vitals/I&O/Wt Last Vital Signs Temp 97.7 F 04/16/25 07:36 Pulse 51 L 04/16/25 07:36 Resp 17 04/16/25 07:36 BP 118/62 04/16/25 07:36 Pulse Ox 96 04/16/25 07:36 O2 Del Method Room Air 04/16/25 07:36 O2 Flow Rate 2 04/15/25 07:35 04/15/25 04/16/25 04/16/25 22:59 06:59 14:59 Intake Total 480 / 1180 480 / 480 Balance 480 / 1180 480 / 480 Weight last 48 hrs Weight 103.447 kg Weight 102.058 kg Physical Exam 2 Narrative: Vital signs noted. Patient lying in bed no apparent distress. HEENT normocephalic atraumatic. Neck is supple Lungs are clear to auscultation. Heart is regular no rubs or gallops. Abdomen soft positive bowel sounds. Patient is a urostomy tube Extremities no edema Neuro awake alert oriented x 3 Data 04/16/25 03:11 04/16/25 03:11 A&P Assessment and plan 1. ARNOLD (acute kidney injury): 70 year old male history of bladder cancer status post left nephrectomy cystectomy prostatectomy ileal conduit in right lower quadrant with urostomy. Patient has underlying obesity diabetes hypertension. 1. Sepsis: likely UTI , on broad-spectrum antibiotics 2. Acute kidney injury-abdominal CT scan reviewed he has a patent right-sided ileal conduit. It appears that he also has some stranding and edema by the right kidney with dilatation of right proximal ureter suspicious for pyelonephritis. -Urinalysis turbid 2+ protein 3+ blood 3+ leuk esterase 21-50 RBC, greater than 100 white cells 4+ bacteria. - Will check urine electrolytes microalbumin and protein and creatinine. - Cr improving , Follow up with Nephrology as out pt 3. Patient has CKD in 2019 his creatinine 0.7 in 2021 creatinine is 1.2 since his nephrectomy in January 2025 his creatinine is 1.7 likely due to diabetes obesity hypertension nephrectomy 4. Increased anion gap metabolic acidosis , lactate normal , s/p bicarb drip 5. Hyponatremia improved 6. Elbow effusion , awaiting MRI Patient seen examined using telehealth used audiovisual equipment and the aid of a nurse. The patient consented to telehealth. Plan: See above. PDMP PDMP Reviewed: Not Reviewed Attestations 2 Medical Necessity Statement*: per medicine Coding Level of Care Code Acute Code for g Fwd Diagnoses ARNOLD (acute kidney injury) N17.9
--- NOTE | 2025-04-16 12:36 | P.PN_ITS ---
Subjective 2 Subjective: Infectious diseaseProgress note. No new complaints this morning. Right upper extremity Doppler taken, results are pending MRI pending this morning. Medications: Reviewed: Yes Medication Review Details: ceftriaxone 1 g iv on 04/12 Zosyn 04/12- current Vancomycin 04/12 Vitals/I&O/Wt Last Vital Signs Temp 98.3 F 04/16/25 11:34 Pulse 55 L 04/16/25 11:34 Resp 18 04/16/25 11:34 BP 114/62 04/16/25 11:34 Pulse Ox 93 04/16/25 11:34 O2 Del Method Room Air 04/16/25 11:34 O2 Flow Rate 2 04/15/25 07:35 04/15/25 04/16/25 04/16/25 22:59 06:59 14:59 Intake Total 480 / 1180 480 / 480 Balance 480 / 1180 480 / 480 Weight last 48 hrs Weight 103.447 kg Weight 102.058 kg Physical Exam 2 Narrative: General: No acute distress, AO x3 HEENT: PERRLA, pupils bilaterally equal and reactive, pallors not present Chest: Normal vesicular breath sounds, no added sounds, equal good air entry bilaterally CVS: S1-S2 regular, no murmurs, no tachycardia, no gallops, no rubs Abdomen: Soft, nontender, no organomegaly, bowel sounds present Neuro: No focal deficits, no facial deformity, AO x3, power 5/5 in all limbs Extremities: Right elbow swollen with painful range of motion, erythema and swelling noted. Additionally noted some hematoma in the antecubital fossa in the area just proximal to it. Data 04/16/25 03:11 04/16/25 03:11 A&P Assessment and plan 1. Fever: Patient admitted to the hospital on 04/12/2025 which shows, diagnosed with sepsis. He was diagnosed with pyelonephritis at the time. Additionally has a right elbow swelling which started on the same day as symptoms. 2. UTI (urinary tract infection): Patient has an ileal conduit. He denies any obstruction prior to the onset of symptoms.States urine was high colored but draining appropriately Polymicrobes are isolated from urine culture, however not unexpected given the ileal conduit with surgery in 2022. Difficult to distinguish colonization from UTI at this time given clinical symptoms of fever and chills. CT abdomen pelvis and renal ultrasound without any obstructive pathology. Discontinue piperacillin/tazobactam, changed to ceftriaxone 1 g IV every 24 hours given sensitivity 3. Effusion of right elbow: Noted to have an effusion of the right elbow. MRI of the elbow has been ordered for further diagnostics. Differentials include septic arthritis versus crystal arthropathy versus inflammatory arthritis. Patient reports a history of gout with recurrent flares typically affecting the toes. Cannot rule out possibility of acute gout flare being the cause of his symptoms. If MRI shows effusion, recommend synovial fluid aspiration for cell count crystals Gram stain and culture. Start treatment for presumptive gout flare with prednisone 40 mg twice daily and evaluate for improvement in symptoms. NSAIDs and colchicine are being avoided related to ARNOLD. He is on appropriate PUD prophylaxis currently Check uric acid level 4. ARNOLD (acute kidney injury): Currently improving creatinine down to 2.2 now. Plan: Await MRI, Ortho assessment for synovitis fluid aspiration. If no evidence of joint infection, patient can likely be discharged on oral antibiotics for possible UTI. If synovial fluid aspiration does indeed confirm joint infection and will need IV antibiotics instead. will follow 04/16/25: No new changes today. Pending MRI and right upper extremity Doppler. Continue ceftriaxone In the interim.Continue prednisone Will follow PDMP PDMP Reviewed: Not Reviewed Attestations 2 Medical Necessity Statement*: Per admitting Coding Level of Care Code Acute Code for Chg Fwd Diagnoses Fever R50.9 UTI (urinary tract infection) N39.0 Effusion of right elbow M25.421 Laterality: right ARNOLD (acute kidney injury) N17.9
[2025-04-16] MEDS: magnesium sulfate premix 2 GM/50 ML PIGGYBACK IV (13:25)
--- NOTE | 2025-04-16 13:29 | P.PN_ITS ---
Subjective 2 Subjective: MRIs reviewed does show effusion. Vitals/I&O/Wt Last Vital Signs Temp 98.3 F 04/16/25 11:34 Pulse 55 L 04/16/25 11:34 Resp 18 04/16/25 11:34 BP 114/62 04/16/25 11:34 Pulse Ox 93 04/16/25 11:34 O2 Del Method Room Air 04/16/25 11:34 O2 Flow Rate 2 04/15/25 07:35 04/15/25 04/16/25 04/16/25 22:59 06:59 14:59 Intake Total 480 / 1180 720 / 720 Output Total 1400 / 1400 Balance 480 / 1180 -680 / -680 Weight last 48 hrs Weight 228 lb 1 oz Weight 225 lb Data 04/16/25 03:11 04/16/25 03:11 A&P Assessment and plan 1. Effusion of right elbow: Recommend aspiration ultrasound-guided from radiology PDMP PDMP Reviewed: Not Reviewed Attestations 2 Medical Necessity Statement*: Per primary service Coding Level of Care Code Acute Code for Chg Fwd Diagnoses Effusion of right elbow M25.421 Laterality: right
--- NOTE | 2025-04-16 19:32 | USCV_ITS ---
Kip Henry Age: 70 Gender: M : 1955 Exam Date: 04/16/2025 09:41 Ordering Phys: Shanthi Fuller MD Technologist: RAS Exam Location: [facility] [place] Indication: Bruising, Swelling HISTORY: Upper extremity swelling. Upper extremity pain. PROCEDURES: Venous duplex imaging was performed in only the right upper extremity. The following venous structures were evaluated: internal jugular vein, subclavian vein, axillary vein, and brachial veins. In addition, the basilic vein, cephalic vein, radial vein, and ulnar vein. Serial compression, augmentation maneuvers, and spectral Doppler flow evaluation were performed. FINDINGS: No DVT/SVT noted in any vessel at this time CONCLUSIONS No evidence of thrombus of the right upper extremity veins. Demetri Manuel MD (Electronically Signed) Final Date: 16 April 2025 15:54 S
[2025-04-17] MEDS: heparin 5,000 unit/mL INJ 1 mL 5000 UNIT SUBCUT ×2 (01:00→12:32)
[2025-04-17 03:44] VITALS: BP 108/77; PULSE 66; RESP 16; TEMP 36.8; O2SAT 95
[2025-04-17] MEDS: pantoprazole 40 mg SDV IVP (06:04)
[2025-04-17 06:12] LABS: Hematocrit 30.6 % (37-53); Hemoglobin 9.10 g/dL (11.27-16.99); Mean Corpuscular HGB Conc 29.7 g/dL (30-55); Mean Corpuscular Hemoglobin 27.6 pg (27-33); Mean Corpuscular Volume 92.7 fl (82-101); Nucleated Red Blood Cells % 0 %; Platelet Count 180 10^3/cmm (157-399); Red Blood Count 3.30 10^6/uL (3.85-5.65); White Blood Count 6.13 10^3/uL (3.29-11.43)
[2025-04-17 06:26] LABS: Alanine Aminotransferase 19 U/L (0-41); Albumin Level 3.1 g/dL (3.5-5.2); Alkaline Phosphatase 63 U/L (40-130); Anion Gap 15.4 (5-19); Aspartate Amino Transferase 15 U/L (0-40); Blood Urea Nitrogen 41 mg/dL (8-23); Calcium 8.4 mg/dL (8.5-10.5); Carbon Dioxide 20 mmol/L (22-29); Chloride 108 mmol/L (98-107); Globulin 3.1 g/dL (1.3-4.6); Glucose 238 mg/dL (65-115); Magnesium 1.9 mg/dL (1.7-2.3); Osmolality Calculated 304 mOsm/kg (285-295); Potassium 5.4 mmol/L (3.5-5.1); Sodium 138 mmol/L (136-145); Total Protein 6.2 g/dL (6.6-8.7)
[2025-04-17] MEDS: cefTRIAXone 1,000 mg SDV 1000 MG IVP ×2 (06:32→17:39)
--- NOTE | 2025-04-17 07:09 | P.PN_ITS ---
Documented by User: Day Meraz NP 04/17/25 13:13 Subjective 2 Subjective: Patient resting in bed on room air, reports continued pain to right elbow and bowel movement this morning. Discussed plans for today of ultrasound-guided puncture aspiration of right elbow, patient agreed to plan of care. Vital signs and labs reviewed this am. New orders of magnesium to be replaced and IVF 500 mL bolus ordered. Medications: Reviewed: Yes Medication Review Details: ceftriaxone 1 g iv on 04/12 Zosyn 04/12- current Vancomycin 04/12 Vitals/I&O/Wt Last Vital Signs Temp 98.2 F 04/17/25 03:44 Pulse 66 04/17/25 03:44 Resp 16 04/17/25 03:44 BP 108/77 04/17/25 03:44 Pulse Ox 95 04/17/25 03:44 O2 Del Method Room Air 04/17/25 03:44 O2 Flow Rate 2 04/15/25 07:35 04/16/25 04/17/25 04/17/25 22:59 06:59 14:59 Intake Total 600 / 1370 Output Total 1150 / 2550 150 / 2700 Balance -550 / -1180 -150 / -1330 Weight last 48 hrs Weight 103.901 kg Weight 103.447 kg Physical Exam 2 Narrative: General: A&O x4, lying comfortably in bed, on RA. HEENT: Normocephalic, atraumatic, grossly unremarkable exam Cardio: NSR, S1-S2 w/o any murmurs, rubs, or gallops. JVD normal Respiratory: Clear bilaterally on auscultation w/o any wheezes, stridor, rhonchi GI: Abdomen soft, non-tender, non-distended, normo-active bowel sounds present, ileal conduit working with the bag attached and draining urine adequately, midline scar noted below umbilicus of previous surgery Extremities: Adequate palpable pulses and normal capillary refill, right elbow swelling w/ tenderness and hot to touch, ROM is limited. Data 04/17/25 05:41 04/17/25 11:52 A&P Assessment and plan 1. Severe sepsis: 2. Pyelonephritis: 3. ARNOLD (acute kidney injury): 4. Elbow effusion: 5. Type 2 diabetes mellitus without complications: 6. Malignant neoplasm of overlapping sites of bladder: 7. Neuropathy: 8. Anxiety: 9. Hypocalcemia: Plan: Severe Sepsis ? 04/12: Chest x-ray was unremarkable. Lactate series unremarkable ? MRSA negative ? Maintain MAP above 65 ? Hold antihypertensives, beta-blockers or any blood pressure lowering medications - Ileal conduit care with adequate intake and output monitoring ? 04/16: 2 sets of blood cultures NGTD ? Urine cultures reviewed and resulted on 04/14: Growth of 3 organisms ( Klebsiella, E. coli, providentia sp) ? 04/15: Appreciate infectious disease consultation and management with Dr. Fuller. ? Continue IV Rocephin per ID recommendations Pyelonephritis ARNOLD ? Patient having severe ARNOLD/class III, improving. ? 04/17 labs- Intellectual Property Paralegal: 1.7, BUN: 41. ? CMP dly, monitor renal parameters. Correction and monitoring of electrolytes. ? 04/12: CT abd/plevis reviewed and reported: Mild inflammatory stranding and edema about the RIGHT kidney with mild dilatation of the RIGHT ureter with surrounding induration suspicious for pyelonephritis. No visualized obstructing lesions. Ileal conduit appears patent. Prior postoperative changes LEFT nephrectomy with cystectomy and prostatectomy. Ileal conduit in the RIGHT lower quadrant ? Nephrology consulted for further management ? Continue broad-spectrum IV abx of Zoysn ? Measure I&Os q12hr ? Outpatient referral to nephrology upon D/C. ? Beta-Hydroxybutyrate resulted at 0.46 on 04/16 Right Elbow pain, POA Elbow Effusion ? Patient c/o right elbow pain, ROM is limited ? Ultrasound-guided soft tissue fluid drainage cath ordered for 04/17 afternoon, Synovial fluid testing. ? Continue IV antibiotics pending synovial fluid testing results- this is a barrier to discharge ? 04/17 Upper right extremity venous duplex reviewed and demonstrated: No DVT/SVT noted in any vessel at this time ? 04/17 MRI of right elbow reviewed and reported: Moderate joint effusion. No evidence of osteomyelitis. No visualized fractures. Diffuse soft tissue edema. Recommend correlation for cellulitis. ? 04/14: Right elbow XR reviewed and reports: No distinct fracture is identified, a joint effusion is present, which raises concern for an occult fracture. ? Uric acid level: 5.5mg/dL on 04/16 ? Ortho consulted. ? Adequate analgesia as per pain scale. IVP morphine 4 mg q4h, oxycodone 10-325 mg q8h ordered PRN DM2 ? HbA1c: 6.3, TSH: 1.9 on 04/12 ? Low-dose sliding scale insulin ? Blood glucose monitoring, ACHS ? Hypoglycemia protocol ? Continue home medication atorvastatin 40 mg PO dly, fenofibrates 48mg PO dly Malignant Neoplasm of overlapping sites of the bladder ? Currently stable, no active/features of hematuria or any weight loss or B symptoms ? Urology referral at the time of discharge, he used to follow at [place] [facility] ? Continue home medication pregabalin 50mg dly and adequate analgesia as per pain scale Anxiety ? Resume home medication of sertraline 100mg PO BID, lorazepam 1mg PO q8hr PRN for anxiety Hypocalcemia, resloved ? Continue to monitor CODE STATUS: Full code GI prophylaxis: Protonix IVP 40 mg dly DVT prophylaxis: Heparin, subcu BID PDMP PDMP Reviewed: Not Reviewed Attestations 2 Medical Necessity Statement*: the patient will stay more than 2 midnights for the management of pyelonephritis and right elbow effusion Coding Level of Care Code 96958 Diagnoses Severe sepsis A41.9; R65.20 Pyelonephritis N12 ARNOLD (acute kidney injury) N17.9 Elbow effusion M25.429 Type 2 diabetes mellitus without complications E11.9 Malignant neoplasm of overlapping sites of bladder C67.8 Neuropathy G62.9 Anxiety F41.9 Hypocalcemia E83.51 Documented by User: Ashlee Campos NP 04/17/25 13:17 Subjective 2 Subjective: Patient resting in bed on room air, reports continued pain to right elbow and bowel movement this morning. Discussed plans for today of ultrasound-guided puncture aspiration of right elbow, patient agreed to plan of care. Vital signs and labs reviewed this am. Magnesium replinished 1.9, mild volume depletion and IVF 500 mL bolus ordered. Spoke with Dr. Fuller, pending aspiration of effusion to determine course of antibiotics whether continued IV or oral. All questions and concerns addressed with patient at bedside today. Data 04/17/25 05:41 04/17/25 11:52 A&P Assessment and plan 1. Severe sepsis: 2. Pyelonephritis: 3. ARNOLD (acute kidney injury): 4. Elbow effusion: 5. Type 2 diabetes mellitus without complications: 6. Malignant neoplasm of overlapping sites of bladder: 7. Neuropathy: 8. Anxiety: 9. Hypocalcemia: PDMP PDMP Reviewed: Not Reviewed Coding Level of Care Code 99769 Diagnoses Severe sepsis A41.9; R65.20 Pyelonephritis N12 ARNOLD (acute kidney injury) N17.9 Elbow effusion M25.429 Type 2 diabetes mellitus without complications E11.9 Malignant neoplasm of overlapping sites of bladder C67.8 Neuropathy G62.9 Anxiety F41.9 Hypocalcemia E83.51
[2025-04-17 07:50] VITALS: BP 118/66; PULSE 43; RESP 17; TEMP 36.6; O2SAT 94
[2025-04-17] MEDS: citric acid-sodium citrate 30 mL UDC 60 ML PO (07:59)
--- NOTE | 2025-04-17 09:43 | P.PN_ITS ---
Subjective 2 Subjective: K ELEVATED Medications: Reviewed: Yes Vitals/I&O/Wt Last Vital Signs Temp 97.8 F 04/17/25 07:50 Pulse 43 L 04/17/25 07:50 Resp 17 04/17/25 07:50 BP 118/66 04/17/25 07:50 Pulse Ox 94 04/17/25 07:50 O2 Del Method Room Air 04/17/25 07:50 O2 Flow Rate 2 04/15/25 07:35 04/16/25 04/17/25 04/17/25 22:59 06:59 14:59 Intake Total 600 / 1370 480 / 480 Output Total 1150 / 2550 150 / 2700 1400 / 1400 Balance -550 / -1180 -150 / -1330 -920 / -920 Weight last 48 hrs Weight 103.901 kg Weight 103.447 kg Physical Exam 2 Narrative: Vital signs noted. Patient lying in bed no apparent distress. HEENT normocephalic atraumatic. Neck is supple Lungs are clear to auscultation. Heart is regular no rubs or gallops. Abdomen soft positive bowel sounds. Patient is a urostomy tube Extremities no edema Neuro awake alert oriented x 3 Data 04/17/25 05:41 04/17/25 05:41 A&P Assessment and plan 1. ARNOLD (acute kidney injury): 70 year old male history of bladder cancer status post left nephrectomy cystectomy prostatectomy ileal conduit in right lower quadrant with urostomy. Patient has underlying obesity diabetes hypertension. 1. Sepsis: likely UTI , on broad-spectrum antibiotics 2. Acute kidney injury-abdominal CT scan reviewed he has a patent right-sided ileal conduit. It appears that he also has some stranding and edema by the right kidney with dilatation of right proximal ureter suspicious for pyelonephritis. -Urinalysis turbid 2+ protein 3+ blood 3+ leuk esterase 21-50 RBC, greater than 100 white cells 4+ bacteria. - Will check urine electrolytes microalbumin and protein and creatinine. - Cr improving , Follow up with Nephrology as out pt 3. Patient has CKD in 2018 his creatinine 0.7 in 2021 creatinine is 1.2 since his nephrectomy in January 2025 his creatinine is 1.7 likely due to diabetes obesity hypertension nephrectomy 4. Increased anion gap metabolic acidosis , lactate normal , s/p bicarb drip 5. Hyperkalemia - s/p kayexylate, low k diet 6. Elbow effusion , awaiting MRI Patient seen examined using telehealth used audiovisual equipment and the aid of a nurse. The patient consented to telehealth. Plan: See above. PDMP PDMP Reviewed: Not Reviewed Attestations 2 Medical Necessity Statement*: per medicine Coding Level of Care Code Acute Code for Chg Fwd Diagnoses ARNOLD (acute kidney injury) N17.9
[2025-04-17 09:55] VITALS: RESP 16; O2SAT 94
[2025-04-17 11:53] VITALS: BP 119/60; PULSE 50; RESP 18; TEMP 36.6; O2SAT 94
[2025-04-17 12:16] LABS: Alanine Aminotransferase 20 U/L (0-41); Albumin Level 3.5 g/dL (3.5-5.2); Alkaline Phosphatase 67 U/L (40-130); Anion Gap 13.7 (5-19); Aspartate Amino Transferase 14 U/L (0-40); Blood Urea Nitrogen 39 mg/dL (8-23); Calcium 8.3 mg/dL (8.5-10.5); Carbon Dioxide 25 mmol/L (22-29); Chloride 106 mmol/L (98-107); Globulin 2.7 g/dL (1.3-4.6); Glucose 203 mg/dL (65-115); Osmolality Calculated 305 mOsm/kg (285-295); Potassium 4.7 mmol/L (3.5-5.1); Sodium 140 mmol/L (136-145); Total Protein 6.2 g/dL (6.6-8.7)
--- NOTE | 2025-04-17 14:12 | US_ITS ---
WS: [id number] INDICATION: Elbow effusion TECHNIQUE: Ultrasound-guided elbow drainage FINDINGS: The procedure including risks, benefits capital and complications were discussed with the patient who agreed to proceed. Timeout was performed. Patient was prepped and draped in usual sterile fashion. After 1% lidocaine, using ultrasound guidance 10 cc of fluid was aspirated from the RIGHT elbow utilizing a 20-gauge spinal needle without complication. Fluid was sent for requested diagnostic tests. No immediate complications. US/ [place] [id number] IMPRESSION: Uncomplicated ultrasound-guided RIGHT elbow fluid aspiration
[2025-04-17 16:00] VITALS: BP 133/66; PULSE 56; RESP 17; TEMP 36.8; O2SAT 93
--- NOTE | 2025-04-17 18:35 | PM.MISC ---
Miscellaneous Note Purpose of Documentation: MRI of the elbow performed yesterday showed moderate joint effusion without evidence of osteomyelitis. There was diffuse soft tissue edema overlying. No significant change with presumptive steroid course defer this has been discontinued. IR guided aspiration has been performed this afternoon, awaiting synovial fluid analysis to guide further treatment. Add empiric vancomycin
[2025-04-17 18:39] LABS: RBC Synovial Fluid 10 10^3/uL (0-0); Synovial Fluid Mononuclear # 1.637 10^3/uL; Synovial Fluid Mononuclear % 5.900 %; Synovial Fluid Polynuclear # 25.906 10^3/uL; Synovial Fluid Polynuclear % 94.100 %
[2025-04-17 18:42] LABS: Color Synovial Fluid PALE YELLOW (PALE YELLOW)
[2025-04-17 19:00] LABS: PATH Referal YES
[2025-04-17 19:01] LABS: Cyto Order Verification No Order
--- NOTE | 2025-04-17 19:18 | PHA.VACGOAL ---
Vancomycin Goal - Goal Vancomycin Goal:: 15-20 mg/L Vancomycin Indication:: Other (SEPSIS) - Therapy Current therapy:: Other Antibiotic (CEFTRIAXONE) Day of therpy:: Day []of [] . Actual body weight (kg): 229 lb 1 oz - Data Labs: WBC 6.13 10^3/uL (3.29-11.43) 04/17/25 05:41 RBC 3.30 10^6/uL (3.85-5.65) L 04/17/25 05:41 Hgb 9.10 g/dL (11.27-16.99) L 04/17/25 05:41 Hct 30.6 % (37-53) L 04/17/25 05:41 MCV 92.7 fl (82-101) 04/17/25 05:41 MCH 27.6 pg (27-33) 04/17/25 05:41 MCHC 29.7 g/dL (30-55) L 04/17/25 05:41 RDW 14.8 % (12.1-15.1) 04/17/25 05:41 Sodium 140 mmol/L (136-145) 04/17/25 11:52 Potassium 4.7 mmol/L (3.5-5.1) 04/17/25 11:52 Chloride 106 mmol/L (98-107) 04/17/25 11:52 Carbon Dioxide 25 mmol/L (22-29) 04/17/25 11:52 Anion Gap 13.7 (5-19) 04/17/25 11:52 BUN 39 mg/dL (8-23) H 04/17/25 11:52 Creatinine 1.6 mg/dL (0.7-1.2) H 04/17/25 11:52 GFR Calculation 43.2 mL/min (90-130) L 04/17/25 11:52 Treatment plan:: new consult Regimen:: PATIENT WAS ON VANCOMYCIN UNTIL DISCONTINUED ON 04/14/25. PATIENT IS BEING RESTARTED ON VANCOMYCIN PER DR. AMADOR. PATIENT RENAL FUNCTION HAS SIGNIFICANTLY IMPROVED SINCE PATIENT WAS LAST STARTED ON VANCOMYCIN. STARTING MAINTENANCE DOSE OF 750 MG Q12H. WILL CONTINUE TO MONITOR DAILY AND PLAN TO OBTAIN TROUGH PRIOR TO 4TH DOSE.
[2025-04-17 20:00] VITALS: BP 148/81; PULSE 73; RESP 16; TEMP 36.6; O2SAT 96
--- NOTE | 2025-04-17 21:18 | P.PN_ITS ---
Subjective 2 Subjective: Infectious Disease progress note Patient underwent IR aspiration earlier this afternoon. Synovial fluid analysis results are now available. Wbc count > 01454 with 94% PMNLs. right elbow without signifcant improvement. Medications: Reviewed: Yes Medication Review Details: ceftriaxone 1 g iv on 04/12- current Zosyn 04/12- current Vancomycin 04/12 x 1 Vitals/I&O/Wt Last Vital Signs Temp 98.3 F 04/17/25 16:00 Pulse 56 L 04/17/25 16:00 Resp 17 04/17/25 16:00 BP 133/66 04/17/25 16:00 Pulse Ox 93 04/17/25 16:00 O2 Del Method Room Air 04/17/25 16:00 O2 Flow Rate 2 04/15/25 07:35 04/17/25 04/17/25 04/17/25 06:59 14:59 22:59 Intake Total 1460 / 1460 730 / 2190 Output Total 150 / 2700 1400 / 1400 Balance -150 / -1330 60 / 60 730 / 790 Weight last 48 hrs Weight 103.901 kg Weight 103.447 kg Physical Exam 2 Narrative: General: No acute distress, AO x3 HEENT: PERRLA, pupils bilaterally equal and reactive, pallors not present Chest: Normal vesicular breath sounds, no added sounds, equal good air entry bilaterally CVS: S1-S2 regular, no murmurs, no tachycardia, no gallops, no rubs Abdomen: Soft, nontender, no organomegaly, bowel sounds present Neuro: No focal deficits, no facial deformity, AO x3, power 5/5 in all limbs Extremities: Right elbow swollen with painful range of motion, erythema and swelling noted. Additionally noted some hematoma in the antecubital fossa in the area just proximal to it. Data 04/17/25 05:41 04/17/25 11:52 Micro: Microbiology 04/12/25 10:26 Blood Culture - Final Blood NO GROWTH AFTER 5 DAYS 04/12/25 10:31 Blood Culture - Final Blood NO GROWTH AFTER 5 DAYS A&P Assessment and plan 1. Fever: Patient admitted to the hospital on 04/12/2025 which shows, diagnosed with sepsis. He was diagnosed with pyelonephritis at the time. Additionally has a right elbow swelling which started on the same day as symptoms. 2. UTI (urinary tract infection): Patient has an ileal conduit. He denies any obstruction prior to the onset of symptoms.States urine was high colored but draining appropriately Polymicrobes are isolated from urine culture, however not unexpected given the ileal conduit with surgery in 2022. Difficult to distinguish colonization from UTI at this time given clinical symptoms of fever and chills. CT abdomen pelvis and renal ultrasound without any obstructive pathology. Discontinue piperacillin/tazobactam, changed to ceftriaxone 1 g IV every 24 hours given sensitivity 3. Effusion of right elbow: Noted to have an effusion of the right elbow. MRI of the elbow has been ordered for further diagnostics. Differentials include septic arthritis versus crystal arthropathy versus inflammatory arthritis. Patient reports a history of gout with recurrent flares typically affecting the toes. Cannot rule out possibility of acute gout flare being the cause of his symptoms. If MRI shows effusion, recommend synovial fluid aspiration for cell count crystals Gram stain and culture. Start treatment for presumptive gout flare with prednisone 40 mg twice daily and evaluate for improvement in symptoms. NSAIDs and colchicine are being avoided related to ARNOLD. He is on appropriate PUD prophylaxis currently Check uric acid level 4. ARNOLD (acute kidney injury): Currently improving creatinine down to 2.2 now. Plan: Await MRI, Ortho assessment for synovitis fluid aspiration. If no evidence of joint infection, patient can likely be discharged on oral antibiotics for possible UTI. If synovial fluid aspiration does indeed confirm joint infection and will need IV antibiotics instead. will follow 04/16/25: No new changes today. Pending MRI and right upper extremity Doppler. Continue ceftriaxone In the interim.Continue prednisone Will follow 04/17/25 : no significant improvement over the right elbow. S/p synovial fluid [place] [address], with 94% PMNLs. given that the elevated WBC count is after being in abx since at least 04/12 and steroids over the last 48 hrs, concerned about septic arthritis. Gram stain and cx pending, however negative results will need to be interpreted with caution as he has been on abx for several days. pending crystal fluid analysis, expected TAT 5-7 days from path. Discussed case with Dr. Jaquez, given concern for septic joint and lack of improvement thus far, planned for joint washout tomorrow. Will additionally plan to treat with 4 weeks of iv abx. For now, changed ceftriaxone to cefepime, added vancomycin. Follow cx from aspirate today and from OR tomorrow, hope to narrow abx based on cx. PDMP PDMP Reviewed: Not Reviewed Attestations 2 Medical Necessity Statement*: per admitting note Coding Level of Care Code Acute Code for Chg Fwd Diagnoses Fever R50.9 UTI (urinary tract infection) N39.0 Effusion of right elbow M25.421 Laterality: right ARNOLD (acute kidney injury) N17.9
[2025-04-18] VITALS (16 sets, daily range): BP systolic 118–196; BP diastolic 67–100; PULSE 57–114; RESP 15–18; TEMP 36.2–36.7; O2SAT 91–96; BMI 32.8
[2025-04-18] MEDS: oxyCODONE-APAP 10-325 mg Tablet 1 TAB PO
[2025-04-18] MEDS: heparin 5,000 unit/mL INJ 1 mL 5000 UNIT SUBCUT (01:21)
[2025-04-18] MEDS: cefepime 2,000 mg SDV 2000 MG IVP (04:38)
[2025-04-18] MEDS: pantoprazole 40 mg SDV IVP (04:38)
--- NOTE | 2025-04-18 04:48 | P.PN_ITS ---
Subjective 2 Subjective: events noted Medications: Reviewed: Yes Vitals/I&O/Wt Last Vital Signs Temp 98.1 F 04/18/25 00:00 Pulse 57 L 04/18/25 00:00 Resp 17 04/18/25 00:00 BP 118/69 04/18/25 00:00 Pulse Ox 95 04/18/25 00:00 O2 Del Method Room Air 04/18/25 00:00 O2 Flow Rate 2 04/15/25 07:35 04/17/25 04/17/25 04/18/25 14:59 22:59 06:59 Intake Total 1460 / 1460 730 / 2190 Output Total 1400 / 1400 200 / 1600 Balance 60 / 60 530 / 590 Weight last 48 hrs Weight 103.901 kg Weight 103.447 kg Physical Exam 2 Narrative: Vital signs noted. Patient lying in bed no apparent distress. HEENT normocephalic atraumatic. Neck is supple Lungs are clear to auscultation. Heart is regular no rubs or gallops. Abdomen soft positive bowel sounds. Patient is a urostomy tube Extremities no edema Neuro awake alert oriented x 3 Data 04/18/25 05:11 04/18/25 05:11 Micro: Microbiology 04/12/25 10:26 Blood Culture - Final Blood NO GROWTH AFTER 5 DAYS 04/12/25 10:31 Blood Culture - Final Blood NO GROWTH AFTER 5 DAYS A&P Assessment and plan 1. ARNOLD (acute kidney injury): 70 year old male history of bladder cancer status post left nephrectomy cystectomy prostatectomy ileal conduit in right lower quadrant with urostomy. Patient has underlying obesity diabetes hypertension. 1. Sepsis: likely UTI , on broad-spectrum antibiotics 2. Acute kidney injury-abdominal CT scan reviewed he has a patent right-sided ileal conduit. It appears that he also has some stranding and edema by the right kidney with dilatation of right proximal ureter suspicious for pyelonephritis. -Urinalysis turbid 2+ protein 3+ blood 3+ leuk esterase 21-50 RBC, greater than 100 white cells 4+ bacteria. - Will check urine electrolytes microalbumin and protein and creatinine. - Cr improving , Follow up with Nephrology as out pt 3. Patient has CKD in 2019 his creatinine 0.7 in 2021 creatinine is 1.2 since his nephrectomy in January 2025 his creatinine is 1.7 likely due to diabetes obesity hypertension nephrectomy 4. Increased anion gap metabolic acidosis , lactate normal , s/p bicarb drip 5. Hyperkalemia - s/p kayexylate, low k diet 6. Elbow effusion , awaiting MRI Patient seen examined using telehealth used audiovisual equipment and the aid of a nurse. The patient consented to telehealth. Plan: See above. PDMP PDMP Reviewed: Not Reviewed Attestations 2 Medical Necessity Statement*: per arshmt Coding Level of Care Code Acute Code for g Fwd Diagnoses ARNOLD (acute kidney injury) N17.9
[2025-04-18 05:24] LABS: Hematocrit 29.7 % (37-53); Hemoglobin 9.10 g/dL (11.27-16.99); Mean Corpuscular HGB Conc 30.6 g/dL (30-55); Mean Corpuscular Hemoglobin 27.2 pg (27-33); Mean Corpuscular Volume 88.7 fl (82-101); Nucleated Red Blood Cells % 0 %; Platelet Count 187 10^3/cmm (157-399); Red Blood Count 3.35 10^6/uL (3.85-5.65); White Blood Count 6.21 10^3/uL (3.29-11.43)
[2025-04-18 05:43] LABS: Alanine Aminotransferase 23 U/L (0-41); Albumin Level 3.1 g/dL (3.5-5.2); Alkaline Phosphatase 63 U/L (40-130); Anion Gap 13.7 (5-19); Aspartate Amino Transferase 20 U/L (0-40); Blood Urea Nitrogen 39 mg/dL (8-23); Calcium 7.9 mg/dL (8.5-10.5); Carbon Dioxide 22 mmol/L (22-29); Chloride 112 mmol/L (98-107); Globulin 2.4 g/dL (1.3-4.6); Glucose 219 mg/dL (65-115); Osmolality Calculated 314 mOsm/kg (285-295); Potassium 3.7 mmol/L (3.5-5.1); Sodium 144 mmol/L (136-145); Total Protein 5.5 g/dL (6.6-8.7)
--- NOTE | 2025-04-18 07:08 | P.PN_ITS ---
Documented by User: Day Meraz NP 04/18/25 10:08 Subjective 2 Subjective: Patient resting in bed, on room air. Patient states pain to right elbow is much better today. Discussed GOC scheduled for today including irrigation debridement of right elbow w/ Dr. Jaquez and ordered PICC line placement with plans to go home on IV antibiotics due to septic arthritis. I spoke with via telephone and updated her on GOC. Vital signs and labs reviewed this a.m. Synovial fluid analysis resulted and reviewed as follows: Cloudy, pale yellow, synovial WBC 71392, synovial RBC 10. Gram stain and fluid crystals pending. All questions and concerns addressed with patient at bedside. Medications: Reviewed: Yes Vitals/I&O/Wt Last Vital Signs Temp 98.0 F 04/18/25 04:00 Pulse 64 04/18/25 04:00 Resp 18 04/18/25 04:00 BP 138/73 04/18/25 04:00 Pulse Ox 93 04/18/25 04:00 O2 Del Method Room Air 04/18/25 04:00 O2 Flow Rate 2 04/15/25 07:35 04/17/25 04/18/25 04/18/25 22:59 06:59 14:59 Intake Total 730 / 2190 Output Total 200 / 1600 350 / 1950 Balance 530 / 590 -350 / 240 Weight last 48 hrs Weight 103.873 kg Weight 103.873 kg Weight 103.901 kg Physical Exam 2 Narrative: General: A&O x4, lying comfortably in bed, on RA. No apparent distress. HEENT: Normocephalic, atraumatic, grossly unremarkable exam Cardio: NSR, S1-S2 w/o any murmurs, rubs, or gallops. JVD normal Respiratory: Clear bilaterally on auscultation w/o any wheezes, stridor, rhonchi GI: Abdomen soft, non-tender, non-distended, normo-active bowel sounds present, ileal conduit working with the bag attached and draining urine adequately, midline scar noted below umbilicus of previous surgery Extremities: Adequate palpable pulses and normal capillary refill, right elbow swelling w/ tenderness and dressing in place S/P drainage, ROM is limited. Data 04/18/25 05:11 04/18/25 05:11 Micro: Microbiology 04/12/25 10:26 Blood Culture - Final Blood NO GROWTH AFTER 5 DAYS 04/12/25 10:31 Blood Culture - Final Blood NO GROWTH AFTER 5 DAYS A&P Assessment and plan 1. Severe sepsis: 2. Pyelonephritis: 3. ARNOLD (acute kidney injury): 4. Septic arthritis: 5. Elbow effusion: 6. Type 2 diabetes mellitus without complications: 7. Malignant neoplasm of overlapping sites of bladder: 8. Neuropathy: 9. Anxiety: 10. Hypocalcemia: Plan: Severe Sepsis ? 04/12: Chest x-ray was unremarkable. Lactate series unremarkable ? MRSA negative ? Hold antihypertensives, beta-blockers or any blood pressure lowering medications - Ileal conduit care with adequate intake and output monitoring ? 04/16: 2 sets of blood cultures NGTD ? Urine cultures reviewed and resulted on 04/14: Growth of 3 organisms ( Klebsiella, E. coli, providentia sp) ? 04/15: Appreciate infectious disease consultation and management with Dr. Fuller. ? Continue IV Rocephin per ID recommendations Pyelonephritis ARNOLD ? Patient having severe ARNOLD/class III, improving. ? 04/17 labs- Vp [employer]: 1.7, BUN: 41. ? CMP dly, monitor renal parameters. Correction and monitoring of electrolytes. ? 04/12: CT abd/plevis reviewed and reported: Mild inflammatory stranding and edema about the RIGHT kidney with mild dilatation of the RIGHT ureter with surrounding induration suspicious for pyelonephritis. No visualized obstructing lesions. Ileal conduit appears patent. Prior postoperative changes LEFT nephrectomy with cystectomy and prostatectomy. Ileal conduit in the RIGHT lower quadrant ? Nephrology consulted for further management ? Measure I&Os q12hr ? Outpatient referral to nephrology upon D/C. ? Beta-Hydroxybutyrate resulted at 0.46 on 04/16 Septic Arthritis Right Elbow pain, POA Elbow Effusion ? Patient c/o right elbow pain, ROM is limited ? 04/18: Synovial fluid testing results as follows: Synovial fluid analysis resulted and reviewed as follows: Cloudy, pale yellow, synovial WBC 03873, synovial RBC 10. Gram stain and cx and crystal fluid analysis pending. ? Irrigation debridement of right elbow w/ Dr. Jaquez scheduled 04/18 ? PICC line placement ordered, d/c IV ABX x 4 weeks per ID recommendations ? ABX switched from ceftriaxone to cefepime plus vancomycin per ID recommendations on 04/17 ? 04/17 Upper right extremity venous duplex reviewed and demonstrated: No DVT/SVT noted in any vessel at this time ? 04/17 MRI of right elbow reviewed and reported: Moderate joint effusion. No evidence of osteomyelitis. No visualized fractures. Diffuse soft tissue edema. Recommend correlation for cellulitis. ? 04/14: Right elbow XR reviewed and reports: No distinct fracture is identified, a joint effusion is present, which raises concern for an occult fracture. ? Uric acid level: 5.5mg/dL on 04/16 ? Ortho consulted. ? Adequate analgesia as per pain scale. IVP morphine 4 mg q4h, oxycodone 10-325 mg q8h ordered PRN DM2 ? Low-dose sliding scale insulin ? Blood glucose monitoring, ACHS ? Hypoglycemia protocol ? Continue home medication atorvastatin 40 mg PO dly, fenofibrates 48mg PO dly Malignant Neoplasm of overlapping sites of the bladder ? Currently stable, no active/features of hematuria or any weight loss or B symptoms ? Urology referral at the time of discharge, he used to follow at [facility] ? Continue home medication pregabalin 50mg dly and adequate analgesia as per pain scale Anxiety ? Resume home medication of sertraline 100mg PO BID, lorazepam 1mg PO q8hr PRN for anxiety Hypocalcemia, resloved ? Continue to monitor CODE STATUS: Full code GI prophylaxis: Protonix IVP 40 mg dly DVT prophylaxis: Heparin, subcu BID PDMP PDMP Reviewed: Not Reviewed Attestations 2 Medical Necessity Statement*: The patient will stay more than 2 midnights for the management of pyelonephritis and septic arthritis. Coding Level of Care Code 36983 Diagnoses Severe sepsis A41.9; R65.20 Pyelonephritis N12 ARNOLD (acute kidney injury) N17.9 Septic arthritis M00.9 Elbow effusion M25.429 Type 2 diabetes mellitus without complications E11.9 Malignant neoplasm of overlapping sites of bladder C67.8 Neuropathy G62.9 Anxiety F41.9 Hypocalcemia E83.51 Documented by User: Ashlee Campos NP 04/18/25 10:19 Data 04/18/25 05:11 04/18/25 05:11 A&P Assessment and plan 1. Severe sepsis: 2. Pyelonephritis: 3. ARNOLD (acute kidney injury): 4. Septic arthritis: 5. Elbow effusion: 6. Type 2 diabetes mellitus without complications: 7. Malignant neoplasm of overlapping sites of bladder: 8. Neuropathy: 9. Anxiety: 10. Hypocalcemia: PDMP PDMP Reviewed: Not Reviewed Attestations 2 Medical Necessity Statement*: Continued inpatient management of septic arthritis with IV antibiotic therapy, ID consultation, orthopedic consultation with washout, and complex medical management. Coding Level of Care Code 72564 Diagnoses Severe sepsis A41.9; R65.20 Pyelonephritis N12 ARNOLD (acute kidney injury) N17.9 Septic arthritis M00.9 Elbow effusion M25.429 Type 2 diabetes mellitus without complications E11.9 Malignant neoplasm of overlapping sites of bladder C67.8 Neuropathy G62.9 Anxiety F41.9 Hypocalcemia E83.51
--- NOTE | 2025-04-18 09:12 | ANES.PREANE2 ---
Pre-Anesthetic Assessment Height/Weight: Height 1.78 m Weight 103.873 kg Temp Pulse Resp BP Pulse Ox O2 Del Method O2 Flow Rate 97.9 F 57 L 18 131/69 93 Room Air 2 04/18/25 07:37 04/18/25 07:37 04/18/25 07:37 04/18/25 07:37 04/18/25 07:37 04/18/25 07:37 04/15/25 07:35 Operation Date: 04/18/25 12:15 Proposed Procedures p Debridement Bone Upper Extremity(Right) - Tim Jaquez, DO Familial anesthetic complications: None Was Beta Demian taken within 24 hours: N/A Was Clonidine taken within 24 hours: N/A Last intake: > 8hrs Social Tobacco and No alcohol Exam alert, oriented x 3, clear to auscultation bilaterally and regular rate & rhythm Airway Mallampati: Class IV CV/HEM Hypertension one kidney s/p canccer GI Gastroesophageal Reflux Disease Metabolic Diabetes Mellitus, Hyperlipidemia and Morbid Obesity Anesthetic Plan ASA status: 3 Anesthesia: General Risk of > 500 ml blood loss (7ml/kg in children): No Medications/Allergies Home Medications ?Medication ?Instructions ?Recorded ?Confirmed ?Last Taken ?Type atenolol 25 mg tablet 25 mg PO DAILY 08/08/19 04/12/25 04/11/25 History atorvastatin 40 mg tablet 40 mg PO DAILY 08/08/19 04/12/25 04/11/25 History omeprazole 20 mg capsule,delayed 20 mg PO DAILY 08/08/19 04/12/25 04/11/25 History release sertraline 100 mg tablet 100 mg PO BID 08/21/20 04/12/25 04/11/25 History albuterol sulfate 90 mcg/actuation 2 puff inhalation Q6H PRN 04/12/25 04/12/25 Unknown History aerosol inhaler (Ventolin HFA) Shortness Of Breath amlodipine 5 mg tablet 5 mg PO DAILY 04/12/25 04/12/25 04/11/25 History azithromycin 250 mg tablet See Rx Instructions .Route .COMPLEX 04/12/25 04/12/25 04/11/25 History fenofibrate nanocrystallized 48 mg 48 mg PO DAILY 04/12/25 04/12/25 04/11/25 History tablet lorazepam 1 mg tablet 1 mg PO Q8H PRN Anxiety 04/12/25 04/12/25 04/11/25 History metformin 500 mg tablet,extended 1,000 mg PO BID 04/12/25 04/12/25 04/11/25 History release 24 hr mirtazapine 30 mg tablet 30 mg PO BEDTIME 04/12/25 04/12/25 04/11/25 History oxycodone-acetaminophen 10 mg-325 1 tab PO Q8H PRN Severe Pain 04/12/25 04/12/25 Unknown History mg tablet (Scale Score 7-10) pregabalin 50 mg capsule 50 mg PO BEDTIME 04/12/25 04/12/25 04/11/25 History prochlorperazine maleate 10 mg 10 mg PO TID PRN Nausea 04/12/25 04/12/25 Unknown History tablet silver sulfadiazine 1 % topical 1 applic topical DAILY 04/12/25 04/12/25 Unknown History cream tizanidine 4 mg tablet 4 mg PO Q8H 04/12/25 04/12/25 04/11/25 History Allergies Allergy/AdvReac Type Severity Reaction Status Date / Time No Known Allergies Allergy Verified 11/16/24 20:54 Current Medications Generic Name Dose Route Start Last Admin Trade Name Freq PRN Reason Stop Dose Admin Albuterol Sulfate 2.5 mg 04/14/25 20:47 04/14/25 21:17 Albuterol 2.5 Mg/0.5 Ml Neb INHALATION 2.5 mg On Hold: 04/18/25 09:02 Q6H.RESP PRN Administration Comment: Order held by Process WHEEZING Transfer Atorvastatin Calcium 40 mg 04/13/25 05:00 04/18/25 04:39 Atorvastatin 40 Mg Tablet PO 40 mg On Hold: 04/18/25 09:02 DAILY KEV Administration Comment: Order held by Process Transfer Cefepime HCl 2,000 mg 04/18/25 05:00 04/18/25 04:38 Cefepime 2,000 Mg Sdv IVP 2,000 mg Q12H KEV Administration Protocol Fenofibrate 48 mg 04/13/25 05:00 04/18/25 04:39 Fenofibrate 48 Mg Tablet PO 48 mg On Hold: 04/18/25 09:02 DAILY KEV Administration Comment: Order held by Process Transfer Heparin Sodium (Porcine) 5,000 unit 04/12/25 13:15 04/18/25 01:21 Heparin 5,000 Unit/Ml Inj 1 Ml SUBCUT 5,000 unit On Hold: 04/18/25 09:02 Q12H KEV Administration Comment: Order held by Process Transfer Vancomycin HCl 750 mg/ Sodium 250 mls @ 250 mls/hr 04/17/25 19:30 04/18/25 07:42 Chloride IV 250 mls/hr On Hold: 04/18/25 09:02 Q12H KEV Administration Comment: Order held by Process Transfer Insulin Human Lispro 0 unit 04/12/25 18:00 04/18/25 07:42 Insulin Lispro 100 Unit/1 Ml SUBCUT 4 unit On Hold: 04/18/25 09:02 WM&BEDTIME KEV Administration Comment: Order held by Process Protocol Transfer Lorazepam 1 mg 04/17/25 23:51 04/18/25 00:00 Lorazepam 1 Mg Tablet PO 1 mg On Hold: 04/18/25 09:02 Q8H PRN Administration Comment: Order held by Process ANXIETY Transfer Mirtazapine 30 mg 04/12/25 21:00 04/17/25 20:02 Mirtazapine 30 Mg Tablet PO 30 mg On Hold: 04/18/25 09:02 BEDTIME KEV Administration Comment: Order held by Process Transfer Oxycodone/Acetaminophen 1 tab 04/14/25 14:39 04/18/25 00:00 Oxycodone-Apap 10-325 Mg Tablet PO 1 tab On Hold: 04/18/25 09:02 Q8H PRN Administration Comment: Order held by Process MODERATE PAIN Transfer Pantoprazole Sodium 40 mg 04/13/25 05:00 04/18/25 04:38 Pantoprazole 40 Mg Sdv IVP 40 mg On Hold: 04/18/25 09:02 DAILY KEV Administration Comment: Order held by Process Transfer Pregabalin 50 mg 04/16/25 22:00 04/17/25 20:02 Pregabalin 50 Mg Capsule PO 50 mg On Hold: 04/18/25 09:02 BEDTIME KEV Administration Comment: Order held by Process Transfer Senna 17.2 mg 04/12/25 21:00 04/17/25 20:02 Sennosides 8.6 Mg Tablet PO 17.2 mg On Hold: 04/18/25 09:02 BEDTIME KEV Administration Comment: Order held by Process Transfer Sertraline HCl 100 mg 04/12/25 17:00 04/18/25 04:39 Sertraline 100 Mg Tablet PO 100 mg On Hold: 04/18/25 09:02 BID KEV Administration Comment: Order held by Process Transfer Additional Medication Information ceftriaxone 1 g iv on 04/12- current Zosyn 04/12- current Vancomycin 04/12 x 1 PFSH Anesthesia Medical History (Updated 04/17/25 @ 21:14 by Shanthi Fuller MD) Type 2 diabetes mellitus without complications ED (erectile dysfunction) Testicular dysfunction Malignant neoplasm of overlapping sites of bladder Surgical History H/O transurethral destruction of bladder lesion Family History Family/Other Cancer CAD (coronary artery disease) Mother , at age 63 Brain tumor Father , at age 83 No problems noted. Social History Smoking and tobacco/nicotine status: current every day tobacco/nicotine user Alcohol intake: current Alcohol intake frequency: few times a month Substance/Drug Use: unknown Adopted: No Caregiver/support person: No Lives independently: No Household members: spouse Marital status: Current occupational status: disabled Current gender identity: Male Data Anesthesia 04/18/25 05:11 04/18/25 05:11 Short CBC 04/17/25 04/18/25 Range/Units 05:41 05:11 WBC 6.13 6.21 (3.29-11.43) 10^3/uL Hgb 9.10 L 9.10 L (11.27-16.99) g/dL Hct 30.6 L 29.7 L (37-53) % MCV 92.7 88.7 (82-101) fl Plt Count 180 187 (157-399) 10^3/cmm Neut % (Auto) 75.5 61.3 % Neut # (Auto) 4.63 3.81 (1.8-7.7) 10^3/uL BMP 04/17/25 04/17/25 04/18/25 05:41 11:52 05:11 Sodium 138 140 144 Potassium 5.4 H 4.7 3.7 Chloride 108 H 106 112 H Carbon Dioxide 20 L 25 22 BUN 41 H 39 H 39 H Creatinine 1.7 H 1.6 H 1.6 H Glucose 238 H 203 H 219 H Calcium 8.4 L 8.3 L 7.9 L Cardiac Enzymes 04/18/25 Range/Units 05:11 Creatine Kinase 34 L (39-308) U/L Liver Function 04/17/25 04/17/25 04/18/25 Range/Units 05:41 11:52 05:11 Total Bilirubin 0.2 0.2 0.2 (0.15-1.2) mg/dL AST 15 14 20 (0-40) U/L ALT 19 20 23 (0-41) U/L Alkaline Phosphatase 63 67 63 (40-130) U/L Albumin 3.1 L 3.5 3.1 L (3.5-5.2) g/dL Coags 04/18/25 05:11 C-Reactive Protein 12.0 H Microbiology 04/12/25 10:26 Blood Culture - Final Blood NO GROWTH AFTER 5 DAYS 04/12/25 10:31 Blood Culture - Final Blood NO GROWTH AFTER 5 DAYS
--- NOTE | 2025-04-18 10:16 | W.PM.OPSUD ---
Surgery/Procedure H&P Update DATE OF PROCEDURE: April 18, 2025 DATE H&P PERFORMED: 04/16/25 H&P UPDATE INFORMATION: I have reviewed H&P completed within last 30 days, I have examined patient prior to procedure and No changes to prior documentation PLANNED PROCEDURE: Operation Date: 04/18/25 12:15 Proposed Procedures p Debridement Bone Upper Extremity(Right) - Tim Jaquez DO
--- NOTE | 2025-04-18 11:34 | PM.OP ---
Operative Report Date of procedure: April 18, 2025 Pre-op diagnosis: Right septic elbow Post-op diagnosis: same Procedure done: Irrigation debridement of right septic elbow Surgeon: Tim Jaquez DO Estimated blood loss (mL): 20 Procedure: Irrigation debridement of right septic elbow Patient is brought to the operative suite after undergoing anesthesia patient was placed in the supine position on the operating room table. All areas of impingement were well-padded. Skin incision was made over the olecranon and posterior humerus. The skin incision was made tricep tendon was split. Capsule was opened and cultures were taken fluid that came out was cloudy clear type fluid did not look like divya pus. At this point irrigate the joint was irrigated with saline there is a lobulated septum which was cut in order to facilitate getting the posterior capsule open. The arm was flexed and extended in order to get all the fluid out of the joint. And again the joint was irrigated with copious amounts of saline. The capsule was left open in order to facilitate drainage and the tricep tendon was closed and skin was closed with Vicryl and Monocryl suture. Sterile dressings were applied patient was transferred to the PACU in stable condition.
--- NOTE | 2025-04-18 11:41 | PM.PN ---
Subjective Subjective: Infectious Disease progress note Patient is taken to the OR today for joint washout. CX from synovial aspirate remain with no griwth thus far, however early still Medications: Reviewed: Yes Vitals/I&O/Wt Last Vital Signs Temp 97.6 F 04/18/25 09:10 Pulse 57 L 04/18/25 09:10 Resp 18 04/18/25 09:10 BP 140/67 04/18/25 09:10 Pulse Ox 96 04/18/25 09:10 O2 Del Method Room Air 04/18/25 09:25 O2 Flow Rate 2 04/15/25 07:35 04/17/25 04/18/25 04/18/25 22:59 06:59 14:59 Intake Total 730 / 2190 Output Total 200 / 1600 350 / 1950 Balance 530 / 590 -350 / 240 Weight last 48 hrs Weight 103.873 kg Weight 103.873 kg Weight 103.901 kg Physical Exam Narrative: patient is in the OR Data 04/18/25 05:11 04/18/25 05:11 Micro: Microbiology 04/12/25 10:26 Blood Culture - Final Blood NO GROWTH AFTER 5 DAYS 04/12/25 10:31 Blood Culture - Final Blood NO GROWTH AFTER 5 DAYS A&P Assessment and plan 1. Fever: Patient admitted to the hospital on 04/12/2025 which shows, diagnosed with sepsis. He was diagnosed with pyelonephritis at the time. Additionally has a right elbow swelling which started on the same day as symptoms. 2. UTI (urinary tract infection): Patient has an ileal conduit. He denies any obstruction prior to the onset of symptoms.States urine was high colored but draining appropriately Polymicrobes are isolated from urine culture, however not unexpected given the ileal conduit with surgery in 2022. Difficult to distinguish colonization from UTI at this time given clinical symptoms of fever and chills. CT abdomen pelvis and renal ultrasound without any obstructive pathology. Discontinue piperacillin/tazobactam, changed to ceftriaxone 1 g IV every 24 hours given sensitivity 3. Effusion of right elbow: Noted to have an effusion of the right elbow. MRI of the elbow has been ordered for further diagnostics. Differentials include septic arthritis versus crystal arthropathy versus inflammatory arthritis. Patient reports a history of gout with recurrent flares typically affecting the toes. Cannot rule out possibility of acute gout flare being the cause of his symptoms. If MRI shows effusion, recommend synovial fluid aspiration for cell count crystals Gram stain and culture. Start treatment for presumptive gout flare with prednisone 40 mg twice daily and evaluate for improvement in symptoms. NSAIDs and colchicine are being avoided related to ARNOLD. He is on appropriate PUD prophylaxis currently Check uric acid level 4. ARNOLD (acute kidney injury): Currently improving creatinine down to 2.2 now. Plan: Await MRI, Ortho assessment for synovitis fluid aspiration. If no evidence of joint infection, patient can likely be discharged on oral antibiotics for possible UTI. If synovial fluid aspiration does indeed confirm joint infection and will need IV antibiotics instead. will follow 04/16/25: No new changes today. Pending MRI and right upper extremity Doppler. Continue ceftriaxone In the interim.Continue prednisone Will follow 04/17/25 : no significant improvement over the right elbow. S/p synovial [place] [address], with 94% PMNLs. given that the elevated WBC count is after being in abx since at least 04/12 and steroids over the last 48 hrs, concerned about septic arthritis. Gram stain and cx pending, however negative results will need to be interpreted with caution as he has been on abx for several days. pending crystal fluid analysis, expected TAT 5-7 days from path. Discussed case with Dr. Jaquez, given concern for septic joint and lack of improvement thus far, planned for joint washout tomorrow. Will additionally plan to treat with 4 weeks of iv abx. For now, changed ceftriaxone to cefepime, added vancomycin. Follow cx from aspirate today and from OR tomorrow, hope to narrow abx based on cx. 04/18/25 Patient is in the OR this morning for I&D. Synovial fluid aspirate with no growth so far, CX pending from OR today. Anticipate that synovial fluid cx may remain negative as patient has been on abx for many days, therefore additionally requested biofire JI panel at [facility] Specimen cannot be shipped until Wednesday morning since [facility] cannot receive specimen over holidays. Picc line ordered. Case management arranging iv ceftriaxone 2 g iv daily and daptomycin 800mg iv every 24 hrs at the infusion center x 4 weeks for septic arthritis, cx negative. Will aim to narrow abx if cx data reveals growth as outpatient. Weekly labs including CBC, cr, LFT and CPK to be faxed to ID clinic for reveiw. F/up ID clinic on May 10. [facility] path awaited. PDMP PDMP Reviewed: Not Reviewed Attestations Medical Necessity Statement*: per admitting note Coding Level of Care Code Acute Code for Chg Fwd Diagnoses Fever R50.9 UTI (urinary tract infection) N39.0 Effusion of right elbow M25.421 Laterality: right ARNOLD (acute kidney injury) N17.9
[2025-04-18] MEDS: fentaNYL 50 mcg/mL INJ 2mL IVP (11:55)
--- NOTE | 2025-04-18 12:53 | PM.DCS ---
Discharge Providers Date of Admission: 04/12/25 14:42 Date of Discharge: April 18, 2025 Attending Provider at Admission: Jessica Myrick MD Attending Provider at Discharge: Ashlee Campos NP Primary Care Provider: Jh Morejon Diagnoses at Discharge Discharge Diagnosis 1. Fever: 2. UTI (urinary tract infection): 3. Effusion of right elbow: 4. ARNOLD (acute kidney injury): Reason for Visit Reason for Visit: fever - chills Brief History: Admission: Kip Henry is a 70 year old male with PMH of ED( erectile dysfunction) bladder cancer s/p surgery and ileal conduit with urinary diversion, type 2 DM, obesity was in his usual state of health when around 2-3 days he was feeling febrile associated with high grade fever and chills. he was also having mild nausea with feeling of being tired. He has been eating and well hydrated in the past. no previous frequent UTIs. his ileal conduit is working well however the patient has reported having dark colored urine and mild pain around the lower abdomen. but no hematuria or any pus or any decrease output noticed. No recent increased in his lower leg swellings. no flank tendernesses. no chest pain, chest pressure, sob, orthopnea or PND, rest of the review of the system is unremarkable, the patient use to follow up with the urology at [facility] however its been a while that he has seen the urologist and takes care of the ileal conduit by himself when he showers. Hospital Course Hospital Course Severe Sepsis ? 04/12: Chest x-ray was unremarkable. Lactate series unremarkable ? MRSA negative ? Hold antihypertensives, beta-blockers or any blood pressure lowering medications - Ileal conduit care with adequate intake and output monitoring ? 04/16: 2 sets of blood cultures NGTD ? Urine cultures reviewed and resulted on 04/14: Growth of 3 organisms (Klebsiella, E. coli, providentia sp) ? 04/15: Appreciate infectious disease consultation and management with Dr. Fuller. ? Continue IV Rocephin per ID recommendations Pyelonephritis ARNOLD ? Patient having severe ARNOLD/class III, improving. ? 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 ? CMP dly, monitor renal parameters. Correction and monitoring of electrolytes. ? 04/12: CT abd/plevis reviewed and reported: Mild inflammatory stranding and edema about the RIGHT kidney with mild dilatation of the RIGHT ureter with surrounding induration suspicious for pyelonephritis. No visualized obstructing lesions. Ileal conduit appears patent. Prior postoperative changes LEFT nephrectomy with cystectomy and prostatectomy. Ileal conduit in the RIGHT lower quadrant ? Nephrology consulted for further management ? Measure I&Os q12hr ? Outpatient referral to nephrology upon D/C. ? Beta-Hydroxybutyrate resulted at 0.46 on 04/16 Septic Arthritis Right Elbow pain, POA Elbow Effusion ? Patient c/o right elbow pain, ROM is limited ? 04/18: Synovial fluid testing results as follows: Synovial fluid analysis resulted and reviewed as follows: Cloudy, pale yellow, synovial WBC 40717, synovial RBC 10. Gram stain and cx and crystal fluid analysis pending. ? Irrigation debridement of right elbow w/ Dr. Jaquez scheduled 04/18 ? PICC line placement ordered, d/c IV ABX x 4 weeks per ID recommendations ? ABX switched from ceftriaxone to cefepime plus vancomycin per ID recommendations on 04/17 ? 04/17 Upper right extremity venous duplex reviewed and demonstrated: No DVT/SVT noted in any vessel at this time ? 04/17 MRI of right elbow reviewed and reported: Moderate joint effusion. No evidence of osteomyelitis. No visualized fractures. Diffuse soft tissue edema. Recommend correlation for cellulitis. ? 04/14: Right elbow XR reviewed and reports: No distinct fracture is identified, a joint effusion is present, which raises concern for an occult fracture. ? Uric acid level: 5.5mg/dL on 04/16 ? Ortho consulted. ? Adequate analgesia as per pain scale. IVP morphine 4 mg q4h, oxycodone 10-325 mg q8h ordered PRN DM2 ? Low-dose sliding scale insulin ? Blood glucose monitoring, ACHS ? Hypoglycemia protocol ? Continue home medication atorvastatin 40 mg PO dly, fenofibrates 48mg PO dly Malignant Neoplasm of overlapping sites of the bladder ? Currently stable, no active/features of hematuria or any weight loss or B symptoms ? Urology referral at the time of discharge, he used to follow at [place] [facility] ? Continue home medication pregabalin 50mg dly and adequate analgesia as per pain scale Anxiety ? Resume home medication of sertraline 100mg PO BID, lorazepam 1mg PO q8hr PRN for anxiety Hypocalcemia, resloved ? Continue to monitor Patient discharge is in stable condition in care of spouse. Greatly appreciate case management and coordination discharge planning, PICC line placed prior to discharge, patient will have outpatient antibiotic management through infusion clinic per for 4 weeks. Infectious disease has already coordinated with infusion clinic for continued IV antibiotic therapy with Rocephin 2 g IV daily and daptomycin 800 mg IV every 24 hours x 4 weeks, she will adjust these antibiotics pending cultures. Patient is status post washout right elbow with orthopedic surgeon who agrees to discharge and outpatient follow-up. Patient is advised to follow-up with primary care provider in 1 to 2 days, infusion clinic tomorrow, and orthopedic surgeon within 2 weeks. All questions and concerns addressed with the patient and his spouse prior to discharge. Physical Exam Narrative: General: A&O x4, lying comfortably in bed, on RA. No apparent distress. HEENT: Normocephalic, atraumatic, grossly unremarkable exam Cardio: NSR, S1-S2 w/o any murmurs, rubs, or gallops. JVD normal Respiratory: Clear bilaterally on auscultation w/o any wheezes, stridor, rhonchi GI: Abdomen soft, non-tender, non-distended, normo-active bowel sounds present, ileal conduit working with the bag attached and draining urine adequately, midline scar noted below umbilicus of previous surgery Extremities: Adequate palpable pulses and normal capillary refill, right elbow swelling w/ tenderness and dressing in place S/P drainage, ROM is limited. Discharge Data Studies Completed and Pending Completed Studies During Hospitalization Category Date Time Status CT abdomen pelvis wo con [id number] Stat Cat Scan 04/12/25 09:22 Completed XR chest 1V portable [id number] Stat Exams 04/12/25 09:02 Completed XR elbow RT 2V [id number] Routine Exams 04/13/25 15:15 Completed MR elbow RT wo con* [id number] Routine MRI 04/16/25 07:00 [place] [id number] Routine Ultrasound 04/16/25 19:32 Completed US renal BI* [id number] Routine Ultrasound 04/12/25 13:47 Completed US softtissue fl dr mckeon [id number] Routine Ultrasound 04/17/25 14:12 Completed Pending at discharge Category Date Time Status PORSCHE Profile Rheumatology Routine Lab 04/16/25 18:03 Received Anaerobic Culture Routine Lab 04/18/25 11:18 Received Body Fluid Culture & GS Routine Lab 04/16/25 17:51 Ordered Body Fluid Culture & GS Routine Lab 04/18/25 11:08 Ordered Miscellaneous Test Routine Lab 04/17/25 15:30 Received Vancomycin Trough Timed Lab 04/19/25 06:30 Ordered Radiology Impressions Chest X-Ray 04/12/25 09:02 IMPRESSION: No significant chest abnormality. Abdomen/Pelvis CT 04/12/25 09:22 IMPRESSION: 1. Mild inflammatory stranding and edema about the RIGHT kidney with mild dilatation of the RIGHT ureter with surrounding induration suspicious for pyelonephritis. No visualized obstructing lesions. 2. Ileal conduit appears patent. 3. Prior postoperative changes LEFT nephrectomy with cystectomy and prostatectomy. Ileal conduit in the RIGHT lower quadrant. Notified Mike Randall DO at 04/12/2025 10:26 AM. Renal Ultrasound 04/12/25 13:47 IMPRESSION: 1. Normal RIGHT kidney. No hydronephrosis. No perinephric stranding or abscess. 2. Status post LEFT nephrectomy and cystectomy. Elbow X-Ray 04/13/25 15:15 IMPRESSION: While no distinct fracture is identified, a joint effusion is present, which raises concern for an occult fracture. Suggest follow-up radiographs in 7-10 days, as fractures typically become more apparent with healing. No joint malalignment. Elbow MRI 04/16/25 07:00 IMPRESSION: 1. Moderate joint effusion. No evidence of osteomyelitis. 2. No visualized fractures. 3. Diffuse soft tissue edema. Recommend correlation for cellulitis. Drainage Catheter Insertion 04/17/25 14:12 IMPRESSION: Uncomplicated ultrasound-guided RIGHT elbow fluid aspiration Laboratory Results WBC 6.21 10^3/uL (3.29-11.43) 04/18/25 05:11 RBC 3.35 10^6/uL (3.85-5.65) L 04/18/25 05:11 Hgb 9.10 g/dL (11.27-16.99) L 04/18/25 05:11 Hct 29.7 % (37-53) L 04/18/25 05:11 MCV 88.7 fl (82-101) 04/18/25 05:11 MCH 27.2 pg (27-33) 04/18/25 05:11 MCHC 30.6 g/dL (30-55) 04/18/25 05:11 RDW 14.8 % (12.1-15.1) 04/18/25 05:11 Plt Count 187 10^3/cmm (157-399) 04/18/25 05:11 MPV 10.8 fL (7.4-10.4) H 04/18/25 05:11 Neut % (Auto) 61.3 % 04/18/25 05:11 Lymph % (Auto) 30.8 % 04/18/25 05:11 [place] % (Auto) 5.5 % 04/18/25 05:11 Eos % (Auto) 0.3 % 04/18/25 05:11 Baso % (Auto) 0.3 % 04/18/25 05:11 Neut # (Auto) 3.81 10^3/uL (1.8-7.7) 04/18/25 05:11 Lymph # (Auto) 1.9 10^3/uL (0.8-4.8) 04/18/25 05:11 [place] # (Auto) 0.3 10^3/uL (0.2-0.9) 04/18/25 05:11 Eos # (Auto) 0.0 10^3/uL (0.0-0.8) 04/18/25 05:11 Baso # (Auto) 0.0 10^3/uL (0.0-0.1) 04/18/25 05:11 Nucleated RBC % (auto) 0 % 04/18/25 05:11 Nucleated RBCs # 0.0 /100WBC 04/18/25 05:11 Specimen Type Arterial 04/12/25 15:45 Sample Site Radial, right 04/12/25 15:45 ABG pH 7.27 (7.35-7.45) L 04/12/25 15:45 ABG pCO2 29.7 mmHg (35-45) L 04/12/25 15:45 ABG pO2 76.2 mmHg (80.0-100.0) L 04/12/25 15:45 ABG PO2/FiO2 Ratio 362 04/12/25 15:45 ABG HCO3 13.6 mmol/L (22-26) L 04/12/25 15:45 ABG O2 Saturation 93.5 04/12/25 15:45 ABG Base Excess -12.1 mmol/L (-2.0-2.0) L 04/12/25 15:45 Ismael Test Pos 04/12/25 15:45 A-a O2 Gradient 4.6 mmHg (5-10) L 04/12/25 15:45 Hematocrit 31.6 % (42-52) L 04/12/25 15:45 Hgb O2 Saturation 92.1 % (95-100) L 04/12/25 15:45 Carboxyhemoglobin < 0.3 %THgb (0.4-20.1) L 04/12/25 15:45 Methemoglobin 1.3 % (0.4-1.5) 04/12/25 15:45 Total Hemoglobin 10.3 g/dL (14-18) L 04/12/25 15:45 Sodium 137.0 mmol/L (131-143) 04/12/25 15:45 Potassium 4.2 mmol/L (3.5-5.0) 04/12/25 15:45 Glucose 103.0 mg/dL (70-115) 04/12/25 15:45 Ionized Calcium 1.1 mmol/L (1.1-1.4) 04/12/25 15:45 O2 Delivery Device Room air 04/12/25 15:45 FiO2 21.0 % 04/12/25 15:45 Reinforced Concrete Inspector ID Broma 04/12/25 15:45 Sodium 144 mmol/L (136-145) 04/18/25 05:11 Potassium 3.7 mmol/L (3.5-5.1) 04/18/25 05:11 Chloride 112 mmol/L (98-107) H 04/18/25 05:11 Carbon Dioxide 22 mmol/L (22-29) 04/18/25 05:11 Anion Gap 13.7 (5-19) 04/18/25 05:11 BUN 39 mg/dL (8-23) H 04/18/25 05:11 Creatinine 1.6 mg/dL (0.7-1.2) H 04/18/25 05:11 GFR Calculation 43.2 mL/min (90-130) L 04/18/25 05:11 Glucose 219 mg/dL (65-115) H 04/18/25 05:11 POC Glucose 200 mg/dL (70-110) H 04/18/25 06:39 Estimat Average Glucose 134 04/12/25 08:45 Hemoglobin A1c 6.3 % (4.0-6.0) H 04/12/25 08:45 Calculated Osmolality 314 mOsm/kg (285-295) H 04/18/25 05:11 Lactic Acid 1.1 mmol/L (0.5-2.2) 04/12/25 08:45 Lactate 0.5 mmol/L (0.5-2.2) 04/12/25 16:27 Uric Acid 5.5 mg/dL (3.4-7.0) 04/16/25 03:11 Calcium 7.9 mg/dL (8.5-10.5) L 04/18/25 05:11 Phosphorus 3.0 mg/dL (2.5-4.5) 04/15/25 04:24 Magnesium 1.9 mg/dL (1.7-2.3) 04/17/25 05:41 Iron 22 ug/dL (59-158) L 04/13/25 04:27 TIBC 225 mcg/dl 04/13/25 04:27 % Saturation 9.7 % (20-50) L 04/13/25 04:27 Unsat Iron Binding 203 ug/dL (112-347) 04/13/25 04:27 Total Bilirubin 0.2 mg/dL (0.15-1.2) 04/18/25 05:11 AST 20 U/L (0-40) 04/18/25 05:11 ALT 23 U/L (0-41) 04/18/25 05:11 Alkaline Phosphatase 63 U/L (40-130) 04/18/25 05:11 Creatine Kinase 34 U/L (39-308) L 04/18/25 05:11 C-Reactive Protein 12.0 mg/L (0.0-4.9) H 04/18/25 05:11 Total Protein 5.5 g/dL (6.6-8.7) L 04/18/25 05:11 Albumin 3.1 g/dL (3.5-5.2) L 04/18/25 05:11 Globulin 2.4 g/dL (1.3-4.6) 04/18/25 05:11 25-OH Vitamin D Total 10 ng/mL (30-100) L 04/13/25 04:27 Beta-Hydroxybutyrate 0.46 mmol/L H 04/12/25 16:27 TSH 1.19 uIU/mL (0.27-4.20) 04/12/25 08:45 PTH Intact 52.5 pg/mL (15-65) 04/13/25 04:27 Calcium (PTH Intact) 8.3 mg/dL (8.5-10.5) L 04/13/25 04:27 Random Cortisol 14.13 ug/dL (2.47-19.5) 04/14/25 03:27 Urine Color Yellow (Yellow) 04/12/25 09:35 Urine Appearance Turbid (CLEAR) A 04/12/25 09:35 Urine pH 7.0 (5-7) 04/12/25 09:35 Ur Specific [place] 1.016 (1.005-1.030) 04/12/25 09:35 Urine Protein 2+ (Negative) A 04/12/25 09:35 Urine Glucose (UA) Negative (Normal) 04/12/25 09:35 Urine Ketones Trace (Negative) 04/12/25 09:35 Urine Blood 3+ (Negative) A 04/12/25 09:35 Urine Nitrate Negative (Negative) 04/12/25 09:35 Urine Bilirubin Negative (Negative) 04/12/25 09:35 Urine Urobilinogen 1.0 mg/dL (Negative) 04/12/25 09:35 Ur Leukocyte Esterase 3+ (Negative) A 04/12/25 09:35 Urine RBC 21-50 /hpf (0-2) H 04/12/25 09:35 Urine WBC >100 /hpf (0-5) H 04/12/25 09:35 Ur Squamous Epith Cells 0-5 /hpf (0-5) 04/12/25 09:35 Amorphous Sediment Not Reportable 04/12/25 09:35 Urine Bacteria 4+ /hpf (NONE) H 04/12/25 09:35 Hyaline Casts 22.33 /lpf 04/12/25 09:35 Ur Oval Fat Bodies Rare /hpf 04/12/25 09:35 Urine Osmolality 313 mOsm/kg (50-1200) 04/12/25 17:15 Ur Random Microalbumin 15 ug/dL (0-20) 04/12/25 17:15 U Random Total Protein 47 mg/dL 04/12/25 17:15 Ur Random Sodium 73 mmol/L 04/12/25 17:15 Ur Random Potassium 13 mmol/L 04/12/25 17:15 Ur Random Chloride 56 mmol/L 04/12/25 17:15 Urine Creatinine 74 mg/dL (39-259) 04/12/25 17:15 Urine Creatinine 75 mg/dL (39-259) 04/12/25 17:15 Microalb/Creat Ratio 200 mg/dL (0-20) H 04/12/25 17:15 Fluid Crystals See path consult 04/16/25 15:30 Synovial Color Pale yellow (PALE YELLOW) 04/17/25 15:30 Synovial Appearance Cloudy (CLEAR) 04/17/25 15:30 Synovial WBC 34080 /uL (0-150) H 04/17/25 15:30 Synovial RBC 10 10^3/uL (0-0) H 04/17/25 15:30 Synovial Mononuclear 1.637 10^3/uL 04/17/25 15:30 Synov Polynuclear WBCs 25.906 10^3/uL 04/17/25 15:30 Synovial Other Cells Not Reportable 04/17/25 15:30 Synovial Polynuclear % 94.100 % 04/17/25 15:30 Synovial Mononuclear % 5.900 % 04/17/25 15:30 Nasal MRSA (PCR) Not detected (Negative) 04/13/25 13:25 Random Vancomycin 6.9 ug/mL (20.0-40.0) L 04/13/25 16:09 Serum Ketones Negative (Negative) 04/12/25 08:45 Hepatitis C Antibody Non-reactive (Nonreactive) 04/12/25 16:27 Influenza A (PCR) Negative (Negative) 04/12/25 09:16 Influenza Type B (PCR) Negative (Negative) 04/12/25 09:16 RSV (PCR) Negative (Negative) 04/12/25 09:16 SARS-CoV-2 (PCR) Negative (Negative) 04/12/25 09:16 Path Cons w/Slide Yes 04/17/25 15:30 Vitals Last Vital Signs Temp 97.6 F 04/18/25 12:17 Pulse 77 04/18/25 12:17 Resp 15 04/18/25 12:17 BP 144/89 04/18/25 12:17 Pulse Ox 91 04/18/25 12:17 O2 Del Method Room Air 04/18/25 12:17 O2 Flow Rate 2 04/15/25 07:35 Discharge Plan Discharge Patient Disposition: Home Condition: Stable Prescriptions: Continued atorvastatin 40 mg tablet 40 mg PO DAILY omeprazole 20 mg capsule,delayed release(DR/EC) 20 mg PO DAILY atenolol 25 mg tablet 25 mg PO DAILY sertraline 100 mg tablet 100 mg PO BID mirtazapine 30 mg tablet 30 mg PO BEDTIME albuterol sulfate [Ventolin HFA] 90 mcg/actuation HFA aerosol inhaler 2 puff INHALATION Q6H PRN (Reason: Shortness Of Breath) metformin 500 mg tablet extended release 24 hr 1,000 mg PO BID silver sulfadiazine 1 % cream 1 applic TOPICAL DAILY azithromycin 250 mg tablet See Rx Instructions .ROUTE .COMPLEX Rx Instructions: TAKE 2 TABLETS BY MOUTH TODAY, THEN TAKE 1 TABLET DAILY ON DAYS 2-5 tizanidine 4 mg tablet 4 mg PO Q8H amlodipine 5 mg tablet 5 mg PO DAILY prochlorperazine maleate 10 mg tablet 10 mg PO TID PRN (Reason: Nausea) oxycodone-acetaminophen 10-325 mg tablet 1 tab PO Q8H PRN (Reason: Severe Pain (Scale Score 7-10)) lorazepam 1 mg tablet 1 mg PO Q8H PRN (Reason: Anxiety) pregabalin 50 mg capsule 50 mg PO BEDTIME fenofibrate nanocrystallized 48 mg tablet 48 mg PO DAILY Supervisor Filter Assembly OK for DC: Orthopedics Discharge Order = DC NOW: Discharge Order (Routine); Ordered 04/18/25 Ordered By: Ashlee Campos Other Ambulatory Orders: Miscellaneous Procedure (Order) Location: None Selected Ordered By: Ashlee Campos Referrals: [facility] [Provider Group, Infectious Disease] - 05/10/25 11:00 am [facility] [Outside] - 04/18/25 9:30 am Referral Note: On , Wednesday, Wednesday, and Wednesday (04/19-04/22) you will come in @ 0930. You will need to go to the ER to check in and then they will direct you to surgical services for the infusion. On Wednesday (04/23/25) you will present to the [facility] for your infusion @ 1:45pm and they will provide you with additional appointment information @ this visit. Jh Morejon [Primary Care Provider, Family Practice] Patient Instructions: Acute Wound Care (DC), Opioid Safety, Post Anesthesia Care, Patient Portal & [facility]it[facility] Instructions Activity Restrictions/Additional Instructions: Follow-up orthopedic clinic in 2 weeks Nonweightbearing right upper extremity Keep dressing clean dry and intact Discharge Attestations Time Spent in Discharge Care*: greater than 30 min Quality Metrics Clinical Quality Measures [ No reported AMI, CVA or VTE this stay] Coding Level of Care Code 45296 Diagnoses Fever R50.9 UTI (urinary tract infection) N39.0 Effusion of right elbow M25.421 Laterality: right ARNOLD (acute kidney injury) N17.9
--- NOTE | 2025-04-18 13:10 | XRR_ITS ---
PROCEDURE INFORMATION: Exam: XR Chest Exam date and time: 04/18/2025 3:01 PM Age: 70 years old Clinical indication: Device placement; Picc; Additional info: Unsuccessful picc placement. Picc removed TECHNIQUE: Imaging protocol: Radiologic exam of the chest. Views: 1 view. COMPARISON: CR XR chest 1V portable [id number] 04/12/2025 9:08 AM FINDINGS: Tubes, catheters and devices: The left PICC line parallels the descending thoracic aorta and terminates to the left of the midline. Lungs: Unremarkable. No consolidation. Pleural spaces: Unremarkable. No pleural effusion. No pneumothorax. Heart/Mediastinum: See Vasculature finding. Vasculature: This is within a left-sided SVC. A terminates near the atriocaval junction. Bones/joints: Unremarkable. XR/XR chest 1V portable [id number] IMPRESSION: PICC line terminates in a left-sided SVC near the atrial caval junction.
[2025-04-18 13:42] LABS: COMPLEMENT, TOTAL (CH50) >60 U/mL (31-60)
--- NOTE | 2025-04-18 15:10 | PICC.NOTE ---
This nurse attempted PICC line insertion in patients left arm. Consent received from patient. Time out done at the bedside. Rina Lagunas present during insertion to help assist checking this nurse off on PICC line insertions. Left PICC line insertion attempted using full sterile technique. Ultrasound guidance utilized to identify appropriate vessel. Vein was accessed without complication. Guidewire and catheter advanced without complication, however, the PICC line was unable to advance to the right atrial caval junction despite multiple position adjustments and attempts. PICC line was terminating in a left-sided SVC near the atrial caval junction. Dr. Fuller was notified of difficulty with advancement. Per provider recommendation, the catheter was converted into a midline. Catheter trimmed per protocol and secured in place.Blood return noted and line flushed with ease. Sterile dressing applied. Patient tolerated well and procedure went well without complications. Patient verbalized understandings and all PICC/Midline education provided to patient.
[2025-04-18 15:24] LABS: COMPLEMENT COMPONENT C3C 187 mg/dL (82-185); COMPLEMENT COMPONENT C4C 34 mg/dL (15-53)
[2025-04-18] MEDS: cefTRIAXone 2,000 mg SDV 2000 MG IVP (15:46)
[2025-04-18] MEDS: DAPTOmycin 800 MG in sodium chloride 0.9% (100 ml) 100 ML 100 MG IV (16:35)
[2025-04-21 06:20] LABS: CENTROMERE B ANTIBODY <1.0 NEG AI (<1.0 NEG); JO-1 ANTIBODY <1.0 NEG AI (<1.0 NEG); RNP ANTIBODY <1.0 NEG AI (<1.0 NEG); SCL-70 ANTIBODY <1.0 NEG AI (<1.0 NEG); SS-B <1.0 NEG AI (<1.0 NEG)
[2025-04-22 16:00] LABS: THYROID PEROXIDASE ANTIBODIES <1 IU/mL (<9)
[2025-04-23 03:51] LABS: DNA AB (DS) CRITHIDIA,IFA NEGATIVE (NEGATIVE)
== END 2025-04-18 17:45 | disposition home or self-care (01) | DRG 854 ==
LOC: ER 11:03 → ICU 14:43 → MEDSURG 04-13 13:40
PROVIDERS: Internal Medicine Nephrology; Orthopaedic Surgery; Student in an Organized Health Care Education/Training Program; Admitting Provider Student in an Organized Health Care Education/Training Program; Emergency Provider Family Medicine; PCP Family Medicine; Visit Provider Registered Nurse
PROC: 02HV33Z Insertion of Infusion Device into Superior Vena Cava, Percutaneous Approach (ICD-10-PCS; CPT 11044; principal; 2025-04-18 12:05)
DX: A41.89 Other specified sepsis (principal); E87.1 Hypo-osmolality and hyponatremia; N12 Tubulo-interstitial nephritis, not specified as acute or chronic; N17.9 Acute kidney failure, unspecified; E87.20 Acidosis, unspecified; M00.9 Pyogenic arthritis, unspecified; B96.20 Unspecified Escherichia coli [E. coli] as the cause of diseases classified elsewhere; B96.1 Klebsiella pneumoniae [K. pneumoniae] as the cause of diseases classified elsewhere; N52.9 Male erectile dysfunction, unspecified; E87.5 Hyperkalemia; F17.200 Nicotine dependence, unspecified, uncomplicated; I10 Essential (primary) hypertension; M25.421 Effusion, right elbow; E83.51 Hypocalcemia; D63.0 Anemia in neoplastic disease; E66.9 Obesity, unspecified; R65.20 Severe sepsis without septic shock; E11.42 Type 2 diabetes mellitus with diabetic polyneuropathy; C67.8 Malignant neoplasm of overlapping sites of bladder; F41.9 Anxiety disorder, unspecified; Z79.899 Other long term (current) drug therapy; Z90.5 Acquired absence of kidney; Z68.32 Body mass index [BMI] 32.0-32.9, adult; Z79.84 Long term (current) use of oral hypoglycemic drugs; Z11.52 Encounter for screening for COVID-19
CPT/HCPCS: 10030; 10160; 36415; 36416; 36600; 71045; 73070; 73221; 74176; 76770; 76942; 80051; 80053; 80202; 80503; 81001; 82009; 82010; 82044; 82306; 82310; 82330; 82436; 82533; 82550; 82570; 82805; 82962; 83036; 83540; 83550; 83605; 83735; 83935; 83970; 84100; 84133; 84156; 84300; 84443; 84550; 85025; 86140; 86160; 86162; 86235; 86255; 86376; 86803; 87040; 87070; 87075; 87077; 87086; 87186; 87205; 87637; 89050; 93005; 93971; 94640; 96361; 96372; 96374; 96375; 97116; 97161; 97166; 99291; J0612; J0692; J0696; J0878; J1100; J1644; J1815; J2270; J2405; J2470; J2543; J2704; J3010; J3373; J3475; J3490; J7030; J7040; J7050; J7070; J7120; J7512; J7611; J9999; P9045

== ENCOUNTER 2025-04-22 09:28 | Oncology outpatient (recurring) (ONCR) | payer MEDICARE, SELFPAY ==
[2025-04-19] MEDS: DAPTOmycin 500 MG SDV 800 MG IVP (10:17)
[2025-04-19] MEDS: cefTRIAXone 2,000 mg SDV 2000 MG IVP (10:17)
[2025-04-19 10:18] VITALS: BP 130/82; PULSE 84; RESP 19; TEMP 36; O2SAT 95
[2025-04-20 09:52] VITALS: BP 121/72; PULSE 71; RESP 17; TEMP 36.1; O2SAT 98
[2025-04-20] MEDS: cefTRIAXone 2,000 mg SDV 2000 MG IVP (09:53)
[2025-04-20] MEDS: DAPTOmycin 500 MG SDV 800 MG IVP (10:02)
[2025-04-21 09:06] VITALS: BMI 32.5
[2025-04-21] MEDS: cefTRIAXone 2,000 mg SDV 2000 MG IVP (09:32)
[2025-04-21 09:52] VITALS: BP 123/74; PULSE 59; RESP 18; TEMP 36.1; O2SAT 97
[2025-04-21] MEDS: DAPTOmycin 500 MG SDV 800 MG IVP (10:17)
[2025-04-22 09:18] VITALS: BP 162/89; PULSE 51; RESP 19; TEMP 36.2; O2SAT 96
[2025-04-22] MEDS: cefTRIAXone 2,000 mg SDV 2000 MG IVP (09:33)
[2025-04-22] MEDS: DAPTOmycin 500 MG SDV 800 MG IVP (10:01)
[2025-04-23 14:41] LABS: Hematocrit 32.5 % (37-53); Hemoglobin 10.10 g/dL (11.27-16.99); Mean Corpuscular HGB Conc 31.1 g/dL (30-55); Mean Corpuscular Hemoglobin 27.2 pg (27-33); Mean Corpuscular Volume 87.6 fl (82-101); Nucleated Red Blood Cells % 0 %; Platelet Count 227 10^3/cmm (157-399); Red Blood Count 3.71 10^6/uL (3.85-5.65); White Blood Count 7.59 10^3/uL (3.29-11.43)
[2025-04-23 15:04] LABS: Alanine Aminotransferase 29 U/L (0-41); Albumin Level 3.9 g/dL (3.5-5.2); Alkaline Phosphatase 66 U/L (40-130); Aspartate Amino Transferase 35 U/L (0-40); Globulin 3.0 g/dL (1.3-4.6); Total Protein 6.9 g/dL (6.6-8.7)
== END 2025-04-22 23:59 | disposition home or self-care (01) ==
LOC: OPS 04-23 08:23 → ONCMED 04-23 10:20
PROVIDERS: PCP Family Medicine; Visit Provider Student in an Organized Health Care Education/Training Program
DX: M00.9 Pyogenic arthritis, unspecified (principal); Z79.899 Other long term (current) drug therapy
CPT/HCPCS: 96374; 96375; J0696; J0878

== ENCOUNTER 2025-05-01 10:28 | Oncology outpatient (recurring) (ONCR) | payer MEDICARE, SELFPAY ==
[2025-04-23] MEDS: cefTRIAXone 2,000 mg SDV 2000 MG IVP (14:02)
[2025-04-23] MEDS: DAPTOmycin 500 MG SDV 800 MG IVP (14:02)
[2025-04-23 14:41] LABS: Hematocrit 32.5 % (37-53); Hemoglobin 10.10 g/dL (11.27-16.99); Mean Corpuscular HGB Conc 31.1 g/dL (30-55); Mean Corpuscular Hemoglobin 27.2 pg (27-33); Mean Corpuscular Volume 87.6 fl (82-101); Nucleated Red Blood Cells % 0 %; Platelet Count 227 10^3/cmm (157-399); Red Blood Count 3.71 10^6/uL (3.85-5.65); White Blood Count 7.59 10^3/uL (3.29-11.43)
[2025-04-23 15:04] LABS: Alanine Aminotransferase 29 U/L (0-41); Albumin Level 3.9 g/dL (3.5-5.2); Alkaline Phosphatase 66 U/L (40-130); Aspartate Amino Transferase 35 U/L (0-40); Globulin 3.0 g/dL (1.3-4.6); Total Protein 6.9 g/dL (6.6-8.7)
[2025-04-24] MEDS: DAPTOmycin 500 MG SDV 800 MG IVP (14:06)
[2025-04-24] MEDS: cefTRIAXone 2,000 mg SDV 2000 MG IVP (14:09)
[2025-04-25 12:56] VITALS: BP 137/83; PULSE 91; RESP 18; TEMP 36.3; O2SAT 96
[2025-04-25] MEDS: cefTRIAXone 2,000 mg SDV 2000 MG IVP (12:59)
[2025-04-25] MEDS: DAPTOmycin 500 MG SDV 800 MG IVP (13:05)
[2025-04-26] MEDS: cefTRIAXone 2,000 mg SDV 2000 MG IVP (13:10)
[2025-04-26 13:12] VITALS: BP 111/72; PULSE 78; RESP 17; TEMP 36.6; O2SAT 95
[2025-04-26] MEDS: DAPTOmycin 500 MG SDV 800 MG IVP (13:16)
[2025-04-27] MEDS: cefTRIAXone 2,000 mg SDV 2000 MG IVP (10:40)
[2025-04-27] MEDS: DAPTOmycin 500 MG SDV 800 MG IVP (10:40)
--- NOTE | 2025-04-27 10:52 | PC.NURSE ---
Patient arrived to the unit for antibiotic PICC injections. Upon inspecation of dressing, dressing was soiled. Per policy and orders, change of dressing was successful and sterile. New statlock, sorbaview, biopatch, and hub were applied. PICC had excellent blood return and flush. No signs of infection. Skin had mild contusions under the dressing from previous dressing removal in such a sensitive skinned location. Patient stated no pain. Educated patient on hygiene practices for the dressing and signs and symptoms of site infection. Will continue to monitor per visit.
[2025-04-28] MEDS: DAPTOmycin 500 MG SDV 800 MG IVP (09:55)
[2025-04-28] MEDS: cefTRIAXone 2,000 mg SDV 2000 MG IVP (10:00)
[2025-04-28 10:11] VITALS: BP 135/76; PULSE 74; RESP 17; TEMP 36.7; O2SAT 95
[2025-04-29] MEDS: cefTRIAXone 2,000 mg SDV 2000 MG IVP (10:16)
[2025-04-29] MEDS: DAPTOmycin 500 MG SDV 800 MG IVP (10:16)
[2025-04-29 10:21] VITALS: BP 100/76; PULSE 75; RESP 18; TEMP 36.6; O2SAT 97
[2025-04-30] MEDS: DAPTOmycin 500 MG SDV 800 MG IVP (10:30)
[2025-04-30] MEDS: cefTRIAXone 2,000 mg SDV 2000 MG IVP (10:38)
[2025-05-01] MEDS: cefTRIAXone 2,000 mg SDV 2000 MG IVP (10:50)
[2025-05-01 10:52] VITALS: BP 112/72; PULSE 55; RESP 17; TEMP 36.6; O2SAT 93
[2025-05-01] MEDS: DAPTOmycin 500 MG SDV 800 MG IVP (10:55)
[2025-05-01 11:59] LABS: Hematocrit 36.4 % (37-53); Hemoglobin 11.60 g/dL (11.27-16.99); Mean Corpuscular HGB Conc 31.9 g/dL (30-55); Mean Corpuscular Hemoglobin 27.6 pg (27-33); Mean Corpuscular Volume 86.5 fl (82-101); Nucleated Red Blood Cells % 0 %; Platelet Count 271 10^3/cmm (157-399); Red Blood Count 4.21 10^6/uL (3.85-5.65); White Blood Count 7.85 10^3/uL (3.29-11.43)
[2025-05-01 12:16] LABS: Alanine Aminotransferase 41 U/L (0-41); Albumin Level 4.8 g/dL (3.5-5.2); Alkaline Phosphatase 91 U/L (40-130); Aspartate Amino Transferase 45 U/L (0-40); Globulin 2.9 g/dL (1.3-4.6); Total Protein 7.7 g/dL (6.6-8.7)
== END 2025-05-23 23:59 | disposition home or self-care (01) ==
PROVIDERS: PCP Family Medicine; Visit Provider Student in an Organized Health Care Education/Training Program
DX: M00.9 Pyogenic arthritis, unspecified (principal); Z79.899 Other long term (current) drug therapy; N17.9 Acute kidney failure, unspecified; A41.9 Sepsis, unspecified organism; R65.20 Severe sepsis without septic shock
CPT/HCPCS: 80076; 82550; 82565; 85025; 86140; 96374; 96375; J0696; J0878